=== PATIENT | male | born 1960 | race Two or more races ===

== ENCOUNTER 2023-06-16 09:19 | Outpatient (OUT) | payer OTHER, SELFPAY ==
[2023-06-16 10:04] LABS: Basophils Percent Auto 0.5 % (0.2-2.0); Eosinophils Absolute Auto 0.3 10^3/uL (0.0-0.7); Eosinophils Percent Auto 4.3 % (0.9-7.0); Hematocrit 47.5 % (42.0-54.0); Hemoglobin 15.8 g/dL (14.0-18.0); Immature Granulocytes Abs Auto 0.05 10^3/uL (0.00-0.03); Immature Granulocytes Pct Auto 0.6 % (0.0-0.5); Lymphocytes Absolute Auto 1.4 10^3/uL (1.2-3.8); Lymphocytes Percent Auto 17.3 % (20.5-60.0); Mean Corpuscular HGB Conc 33.3 g/dL (29.9-35.2); Mean Corpuscular Hemoglobin 26.8 pg (25.9-34.0); Mean Corpuscular Volume 80.5 fL (80.0-94.0); Mean Platelet Volume 9.3 fL (9.5-13.5); Monocytes Absolute Auto 0.8 10^3/uL (0.3-0.8); Monocytes Percent Auto 10.5 % (1.7-12.0); Neutrophils Absolute Auto 5.3 10^3/uL (1.4-6.5); Neutrophils Percent Auto 66.8 % (43.0-75.0); Platelet Count 287 10^3/uL (150-450); Red Cell Distribution Width 15.1 % (11.0-15.0); White Blood Count 7.9 10^3/uL (4.0-11.0)
== END 2023-06-16 09:20 | disposition home or self-care (01) ==
PROVIDERS: Visit Provider Personal Emergency Response Attendant
DX: Z01.818 Encounter for other preprocedural examination (principal)
CPT/HCPCS: 36415; 85025

== ENCOUNTER 2023-11-30 08:44 | Outpatient (OUT) | payer OTHER, SELFPAY ==
--- NOTE | 2023-11-30 08:55 | XR_ITS ---
The [place] [id number] Patient Name: JUAN WHITE MRN: [id number] date: 1960 Sex: M Assigned Patient Location: RAD Current Patient Location: RAD Accession/Order Number: [id number] Exam Date: 11/30/2023 09:10 Report Date: 11/30/2023 09:27 At the request of: SANDHYA ZAMBRANO Procedure: XR toe LT min 2V PROCEDURE: XR toe LT min 2V COMPARISON: None. HISTORY: Great Toe Pain Left M79.723 FINDINGS: BONES:No acute fracture or dislocation. Moderate to severe degenerative change of the first metatarsal-phalangeal joint with joint space narrowing marginal osteophyte formation SOFT TISSUES:Negative. No visible soft tissue swelling. EFFUSION:None visible. OTHER: Negative. 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
== END 2023-11-30 08:45 | disposition home or self-care (01) ==
LOC: RAD 08:47
PROVIDERS: Visit Provider Nurse Practitioner
DX: M79.675 Pain in left toe(s) (principal); M19.072 Primary osteoarthritis, left ankle and foot
CPT/HCPCS: 73660

== ENCOUNTER 2024-03-08 14:05 | Outpatient (OUT) | payer OTHER, SELFPAY ==
--- NOTE | 2024-03-08 14:16 | XR_ITS ---
The [address] [address] Patient Name: JUAN WHITE MRN: [id number] date: 1960 Sex: M Assigned Patient Location: [facility] Current Patient Location: [facility] Accession/Order Number: [id number] Exam Date: 03/08/2024 14:20 Report Date: 03/08/2024 14:32 At the request of: CAROL ABDALLA Procedure: XR toe RT min 2V PROCEDURE: XR toe RT min 2V COMPARISON: None. HISTORY: Right Great Toe Contusion FINDINGS: BONES:No acute fracture or dislocation. Moderate joint space narrowing First metatarsal-phalangeal joint SOFT TISSUES:Negative. No visible soft tissue swelling. EFFUSION:None visible. OTHER: Negative. XR/XR toe RT min 2V IMPRESSION: No acute fracture Electronically authenticated by: DANNY ZAMBRANO Date: 03/08/2024 14:32
--- OUTSIDE RECORDS SUMMARY | 2024-03-08 14:19 | XMS_ITS | CCD ---
Author Organization [employer] Care Team Providers Care Trial Judge Name Role Phone REQUEST, NONE LISTED Admitting Unavailable REQUEST, NONE LISTED Attending Unavailable REQUEST, NONE LISTED Consulting Unavailable DEL DUNCAN Attending Unavailable DEL DUNCAN Admitting Unavailable LIANNE, CAROL Primary Care Unavailable LIANNE, CAROL Admitting Unavailable LIANNE, CAROL Attending Unavailable LIANNE, CAROL Consulting Unavailable CHRIS EUBANKS Consulting Unavailable REQUEST, NONE LISTED Primary Care Unavailable KYRA BERMUDEZ JR Admitting Unavailable KYRA BERMUDEZ JR Attending Unavailable KYRA BERMUDEZ JR Consulting Unavailable ROSA SOLIS Attending Unavailable ROSA SOLIS Admitting Unavailable ROSA SOLIS Consulting Unavailable LIANNE, CAROL Admitting Unavailable LIANNE, CAROL Attending Unavailable LIANEN, CAROL Consulting Unavailable Milton Posada Consulting Unavailable DO Juventino Thompson Emergency Provider [facility] Primary Care Provider [phone] DO Ronen Gonzales Admit Provider DO Ronen Gonzales Attending Provider DO Hector Ansari Other Provider DO Jesse Sampson Emergency Provider [phone] MD Nydia Marcelino Admit Provider [phone] MD Nydia Marcelino Attending Provider GINNY HUTCHISON Primary Care Physician [phone] [facility] Primary Care Provider MD Juventino Lee Attending Provider Juventino LEE Attending Unavailable Juventino LEE Attending Unavailable Juventino LEE Attending Unavailable Juventino LEE Attending Unavailable Juventino LEE Admitting Unavailable Juventino LEE Referring Unavailable LEE, Juventino Sims Attending Unavailable LEE, uJventino Sims Attending Unavailable Paulie De La O Unavailable [facility] Primary Care Provider DO Juventino Thompson Emergency Provider [facility] Primary Care Unavailable Juventino Lee Admitting Unavailable Juventino Lee Attending Unavailable [facility], [facility] Primary Care Unavailable Juventino joe Admitting Unavailable Juventino Thompson Attending Unavailable [facility], [facility] Primary Care Unavailable Lee, Juventino Admitting Unavailable Lee, Juventino Attending Unavailable Medications Current Medications Medication Drug Class(es) Dates Sig (Normalized) Sig (Original) amLODIPine 5 mg oral tablet (3 sources) Dihydropyridine Calcium Channel Shamir Start: 07-05-2023 take 5 mg by mouth once daily Amlodipine Active 5 MG PO Daily at 0630 July 05, 2023 12:00am take 1 tablet by [facility] every twenty-four hours Norvasc 5 MG 1 tablet Orally Once a day Active atorvastatin 40 mg oral tablet (20 sources) HMG-CoA Reductase Inhibitor Start: 05-17-2022 End: 09-13-2022 take 1 dose by mouth once daily in the morning Atorvastatin Active 40 MG PO Every morning September 13, 2022 9:51am Further refills, or dose adjustment, per PCP. Start: 05-16-2022 End: 05-17-2022 take 20 mg by mouth once daily Atorvastatin Discontinu ed 20 MG PO Daily May 16, 2022 12:00am May 17, 2022 4:44pm on hold for 2 days d/t CT dye cephalexin 500 mg oral capsule (1 source) Cephalosporin Antibacterial Start: 07-05-2023 take 500 mg by mouth four times daily Cephalexin Active 500 MG PO Four times daily 40 10 July 05, 2023 12:00am cholecalciferol 0.125 mg oral tablet (9 sources) Vitamin D Start: 05-16-2022 take 1 tablet by mouth once daily Cholecalciferol (Vitamin D3) (Vitamin D3) 125 mcg (5,000 unit) Tablet Active 125 MCG PO Daily May 16, 2022 12:00am take 1 capsule by [facility] every twenty-four hours Vitamin D3 125 MCG (5000 UT) 1 capsule Orally Once a day Active ciprofloxacin 500 mg oral tablet (3 sources) Quinolone Antimicrobial Start: 08-16-2022 take 1 tablet by mouth twice daily Cipro 500 mg Tab 500 mg = 1 tab(s), Oral, BID, # 28 tab(s), Refills(s) 0, Pharmacy: [facility]/pharmacy #[id number], 166, cm, 08/01/22 8:09:00 EDT, Height/Length Dosing, 109.4, kg, 07/13/22 9:53:00 EDT, Weight Dosing Start Date: 08/16/22 Status: Ordered clopidogrel 75 mg oral tablet (5 sources) [id number] Platelet Inhibitor Start: 06-06-2022 take 75 mg by mouth once daily in the morning Clopidogrel Active 75 MG PO Every morning September 13, 2022 1:00am doxycycline hyclate 100 mg oral capsule (4 sources) Tetracycline-clas s Drug Start: 07-13-2022 take 1 capsule by mouth twice daily doxycycline hyclate 100 mg Cap 100 mg = 1 cap(s), Oral, BID, # 60 cap(s), Refills(s) 1, Pharmacy: [facility]/pharmacy #[id number], 166, cm, 07/13/22 9:53:00 EDT, Height/Length Dosing, 109.4, kg, 07/13/22 9:53:00 EDT, Weight Dosing Start Date: 07/13/22 Status: Ordered hydroCHLOROthiazide 12.5 mg oral capsule (5 sources) Thiazide Diuretic Start: 07-28-2020 take 1 capsule by mouth once daily hydrochlorothiazide 12.5 mg Cap 12.5 mg = 1 cap(s), Oral, Daily, Refills(s) 0 Start Date: 07/28/20 Status: Ordered hydroCHLOROthiazide 12.5 mg / lisinopril 20 mg oral tablet (9 sources) Thiazide Diuretic, Angiotensin Converting Enzyme Inhibitor Start: 05-16-2022 take 1 tablet by mouth once daily in the morning Lisinopril-Hydrochloro thiazide Active 1 TAB PO Every morning May 16, 2022 12:00am lisinopril 20 mg oral tablet (5 sources) Angiotensin Converting Enzyme Inhibitor Start: 07-28-2020 take 1 tablet by mouth once daily lisinopril 20 mg Tab 20 mg = 1 tab(s), Oral, Daily, Refills(s) 0 Start Date: 07/28/20 Status: Ordered losartan potassium 100 mg oral tablet (7 sources) Angiotensin 2 Receptor Shamir Start: 07-05-2023 take 100 mg by mouth once daily Losartan Active 100 MG PO Daily July 05, 2023 12:00am Start: 07-13-2022 losartan 25 mg Tab 25 mg = 1 tab(s), Daily Start Date: 07/13/22 Status: Ordered take 1 tablet by tomi th every twenty-four hours Losartan Potassium 100 MG 1 tablet Orally Once a day Active metFORMIN hydrochloride 1000 mg oral tablet (14 sources) Biguanide Start: 05-16-2022 take 1000 mg by mouth twice daily Metformin Active 1000 MG PO Twice daily May 16, 2022 12:00am Start: 07-28-2020 take 1 tablet by tomi th twice daily metformin 500 mg Tab 500 mg = 1 tab(s), Oral, BID, Refills(s) 0 Start Date: 07/28/20 Status: Ordered Pain Relief Extra Strength (5 sources) Start: 07-28-2020 take 500 mg by mouth every six hours Pain Relief Extra Strength 500 mg, Oral, q6hr, Refills(s) 0 Start Date: 07/28/20 Status: Ordered Saw palmetto extract (5 sources) Start: 07-29-2020 take 1 mg by mouth once daily saw palmetto mg, Oral, Daily Start Date: 07/29/20 Status: Ordered SITagliptin 100 mg oral tablet (13 sources) Dipeptidyl Peptidase 4 Inhibitor Start: 05-16-2022 take 1 tablet by mouth once daily in the morning Sitagliptin Phosphate (Januvia) 100 mg Tablet Active 100 MG PO Every morning May 16, 2022 12:00am tamsulosin hydrochloride 0.4 mg oral capsule (8 sources) alpha-Adrenergic Shamir Start: 07-13-2022 take 1 capsule by mouth twice daily tamsulosin 0.4 mg Cap 0.4 mg = 1 cap(s), Oral, BID, # 30 cap(s), Refills(s) 11, Pharmacy: [facility]/pharmacy #[id number], 166, cm, 07/13/22 9:53:00 EDT, Height/Length Dosing, 109.4, kg, 07/13/22 9:53:00 EDT, Weight Dosing Start Date: 07/13/22 Status: Ordered Start: 05-21-2022 End: 09-13-2022 take 1 capsule by mouth once daily at bedtime Tamsulosin (Flomax) 0.4 mg capsule Discontinued 0.4 MG PO Daily at bedtime May 21, 2022 12:00am September 13, 2022 9:48am Vitamin D3 5000 intl units o ral tablet (4 sources) Start: 07-13-2022 Vitamin D3 500 0 intl units oral tablet 125 mcg = 1 tab(s) Start Date: 07/13/22 Status: Ordered Completed/Discontinued Medications Medication Drug Class(es) Dates Sig (Normalized) Sig (Original) amoxicillin 875 mg oral tablet (5 sources) Penicillin-class Antibacterial Start: 05-18-2022 End: 05-19-2022 take 875 mg by mouth twice daily Amoxicillin Discontinued 875 MG PO Twice daily 10 May 18, 2022 12:00am May 19, 2022 1:01pm aspirin 81 mg delayed release oral tablet (6 sources) Platelet Aggregation Inhibitor, Nonsteroidal Anti-inflammatory Drug Start: 05-17-2022 End: 09-13-2022 take 81 mg by mouth once daily Aspirin Discontinued 81 MG PO Daily May 17, 2022 12:00am September 13, 2022 9:47am cetirizine hydrochloride 10 mg oral tablet (10 sources) Histamine-1 Receptor Antagonist Start: 05-19-2022 End: 09-13-2022 take 10 mg by mouth once daily Cetirizine Discontinued 10 MG PO Daily May 19, 2022 12:00am September 13, 2022 9:47am Start: 07-28-2020 take 1 capsule by [facility] once daily as needed cetirizine 10 mg oral capsule 10 mg = 1 cap(s), Oral, Daily, PRN for allergy symptoms, # 40 cap(s), Refills(s) 0 Start Date: 07/28/20 Status: Ordered zolpidem tartrate 10 mg oral tablet (4 sources) gamma-Aminobutyric Acid-ergic Agonist Start: 05-21-2022 End: 09-27-2022 take 5 mg by mouth once daily at bedtime Zolpidem Discontinued 5 MG PO Daily at bedtime 03 10May 21, 2022 12:00am September 27, 2022 9:39am Problems Active Problems Problem Classification Problem Date Documented Date Episodic/Chronic Acute and unspecified renal failure (7 sources) Injury of kidney; Translations: [Acute kidney failure, unspecified] 05-19-2022 Episodic Acute cerebrovascular disease (20 sources) Other cerebral infarction due to occlusion or stenosis of small artery; Translations: [Cerebrovascular accident (CVA) of right thalamus] 05-17-2022 Chronic Diabetes mellitus without complication (15 sources) Diabetes mellitus; Translations: [Type 2 diabetes mellitus without complications] 05-16-2022 Chronic Diabetes mellitus without complication (5 sources) Glycosuria 07-29-2020 Episodic Disorders of lipid metabolism (15 sources) Hyperlipidemia; Translations: [Hyperlipidemia, unspecified] 05-16-2022 Chronic Essential hypertension (15 sources) Hypertensive disorder; Translations: [Essential (primary) hypertension] 05-16-2022 Chronic Genitourinary symptoms and ill-defined conditions (19 sources) Foul smelling urine; Translations: [History of recurrent urinary tract infection] Onset: 07-13-2022 08-14-2020 Episodic Hyperplasia of prostate (7 sources) Benign prostatic hyperplasia with lower urinary tract symptoms; Translations: [Benign prostatic hypertrophy with outflow obstruction] Onset: 08-12-2020 Chronic Inflammatory conditions of male genital organs (3 sources) Prostatitis; Translations: [Inflammatory disease of prostate, unspecified] Onset: 07-13-2022 Episodic Malaise and fatigue (10 sources) Left hemiparesis; Translations: [Weakness] 05-16-2022 Episodic Occlusion or stenosis of precerebral arteries (9 sources) Carotid artery stenosis; Translations: [Occlusion and stenosis of unspecified carotid artery] 05-16-2022 Chronic Osteoarthritis (3 sources) Osteoarthritis of knee; Translations: [Unilateral primary osteoarthritis, right knee] Chronic Other circulatory disease (4 sources) History of cerebrovascular accident 07-13-2022 Episodic Other connective tissue disease (5 sources) Neurological symptom; Translations: [Unspecified symptoms and signs involving the nervous system] 05-19-2022 Episodic Other connective tissue disease (2 sources) Unspecified symptoms and signs involving the nervous system; Translations: [Other symptoms involving nervous and musculoskeletal systems] Episodic Other diseases of bladder and urethra (2 sources) Disorder of bladder; Translations: [Other specified disorders of bladder] Onset: 07-13-2022 Chronic Other diseases of bladder and urethra (1 source) Hypertrophy of bladder 10-12-2022 Chronic Other diseases of kidney and ureters (2 sources) Urinary tract obstruction; Translations: [Other obstructive and reflux uropathy] Onset: 07-13-2022 Episodic Other nervous system disorders (2 sources) Chronic pain; Translations: [Other chronic pain] Chronic Other nervous system disorders (1 source) Other chronic pain Chronic Other nervous system disorders (6 sources) Disturbance in speech; Translations: [Unspecified speech disturbances] 05-16-2022 Episodic Other nervous system disorders (4 sources) Unspecified speech disturbances; Translations: [Other speech disturbance] Episodic Other non-traumatic joint disorders (3 sources) Pain in right knee; Translations: [Right knee pain] Episodic Other nutritional; endocrine; and metabolic disorders (6 sources) Body mass index 30+ - obesity; Translations: [Body mass index (BMI) 38.0-38.9, adult] 05-16-2022 Chronic Other nutritional; endocrine; and metabolic disorders (3 sources) Body mass index (BMI) 38.0-38.9, adult; Translations: [Body Mass Index 38.0-38.9, adult] Chronic Residual codes; unclassified (6 sources) Obstructive sleep apnea syndrome; Translations: [Obstructive sleep apnea (adult) (pediatric)] 05-17-2022 Chronic Residual codes; unclassified (1 source) Obstructive sleep apnea (adult) (pediatric); Translations: [Obstructive sleep apnea (adult)(pediatric)] Chronic Residual codes; unclassified (5 sources) Sleep apnea 07-28-2020 Chronic Residual codes; unclassified (4 sources) Insomnia; Translations: [Insomnia, unspecified] 05-21-2022 Episodic Spondylosis; intervertebral disc disorders; other back problems (6 sources) Spinal stenosis in cervical region; Translations: [Spinal stenosis, cervical region] 05-17-2022 Episodic Transient cerebral ischemia (11 sources) Cerebral ischemia; Translations: [Transient cerebral ischemic attack, unspecified] 05-16-2022 Chronic Unclassified (1 source) Fever, unspecified; Translations: [Fever, unspecified] Onset: 07-04-2023 Unclassified (1 source) Unspecified urethral stricture, male, unspecified site; Translations: [Unspecified urethral stricture, male, unspecified site] Onset: 09-27-2022 Unclassified (1 source) Encounter for preprocedural laboratory examination; Translations: [Encounter for preprocedural laboratory examination] Onset: 09-13-2022 Urinary tract infections (5 sources) Urinary tract infection, site not specified; Translations: [Acute urinary tract infection] Onset: 09-20-2020 07-05-2023 Episodic Past or Other Problems Problem Classification Problem Date Documented Da te Episodic/Chronic Sprains and strains (8 sources) Sprain of unspecified ligament of left ankle, initial encounter; Translations: [Strain of other muscle(s) and tendon(s) of posterior muscle group at lower leg level, left leg, initial encounter] Onset: 01-31-2020 Episodic Results Test Name Value Interpretation Reference Range Facility Blood Cultureon 07-05-2023 Bacteria identified Cx Nom (Bld) NO GROWTH 5 DAYS PERFORMED BY: [place] [id number] PATHOLOGIST FIELD STAFF MANAGER SALINA HASSAN M.D. [facility] Comment on above: Performed By: #### A DDONUAPLUS, CUU #### [address] Bacteria identified Cx Nom (Bld) NO GROWTH 5 DAYS PERFORMED BY: [place] [address] PATHOLOGIST FIELD STAFF MANAGER SALINA HASSAN M.D. [facility] Comment on above: Performed By: #### A DDONUAPLUS, CUU #### [place] [address] [place] Comprehensive Metabolic Pane brandi 07-05-2023 Albumin [Mass/Vol] 4.2 g/dL Normal 3.5-5.7 [facility] Comment on above: Performed By: #### C MP, SCAN CBC #### [place] [id number] [facility] Albumin/Globulin [Mass ratio] 1.6 {ratio} [facility] Comment on above: Performed By: #### C MP, SCAN CBC #### [place] [address] [place] ALP [Catalytic activity/Vol] 57 U/L Normal 34-104 [facility] Comment on above: Performed By: #### C MP, SCAN CBC #### [facility] [address] [place] [address] [place] ALT [Catalytic activity/Vol] 13 U/L Normal 7-52 [facility] Comment on above: Performed By: #### C MP, SCAN CBC #### [facility] [address] Anion gap [Moles/Vol] 3.8 mmol/L Low 6.0-15.0 [facility] Comment on above: Performed By: #### C MP, SCAN CBC #### [facility] [address] AST [Catalytic activity/Vol] 10 U/L Low 13-39 [facility] Comment on above: Performed By: #### C MP, SCAN CBC #### [facility] [address] Bilirubin [Mass/Vol] 1.2 mg/dL High 0.3-1.0 [facility] Comment on above: Performed By: #### C MP, SCAN CBC #### [facility] [address] [place] [address] [place] Calcium [Mass/Vol] 9.4 mg/dL Normal 8.6-10.3 [facility] Comment on above: Performed By: #### C MP, SCAN CBC #### [facility] [address] [place] [address] [place] Chloride [Moles/Vol] 108 mmol/L High 98-107 [facility] Comment on above: Performed By: #### C MP, SCAN CBC #### [facility] [address] [place] [address] [place] CO2 [Moles/Vol] 22.0 mmol/L Normal 21.0-31.0 [facility] Comment on above: Performed By: #### C MP, SCAN CBC #### [facility] [address] [place] [id number] [place] Creatinine [Mass/Vol] 1.05 mg/dL Normal 0.70-1.30 [facility] Comment on above: Performed By: #### C MP, SCAN CBC #### [facility] [address] [place] [address] [place] Creatinine Clr Calc Pharmacy 81.49 Normal [facility] Comment on above: Result Comment: PERF ORMED BY: [place] [address] PATHOLOGIST FIELD STAFF MANAGER SALINA HASSAN M.D. Performed By: #### C MP, SCAN CBC #### [facility] [address] [place] [address] [place] GFR/1.73 sq M.predicted MDRD (S/P/Bld) [Vol rate/Area] mL/min/{1.73_m2} Normal [facility] Comment on above: Performed By: #### C MP, SCAN CBC #### [facility] [address] Globulin (S) [Mass/Vol] 2.7 g/dL Normal [facility] Comment on above: Performed By: #### C MP, SCAN CBC #### [facility] [address] Glucose [Mass/Vol] 112 mg/dL High 70-100 [facility] Comment on above: Result Comment: [place] Glucose Reference Range is dependent on time and content of last meal. Glucose of more than 200 mg/dL in a nonstressed, ambulatory subject supports the diagnosis of Diabetes Mellitus. ADA recommended reference range Performed By: #### C MP, SCAN CBC #### [facility] [address] [place] [address] [place] Potassium [Moles/Vol] 3.8 mmol/L Normal 3.5-5.1 [facility] Comment on above: Performed By: #### C MP, SCAN CBC #### [facility] [address] [place] [address] [place] Protein [Mass/Vol] 6.9 g/dL Normal 6.4-8.9 [facility] Comment on above: Performed By: #### C MP, SCAN CBC #### [facility] [address] [place] [address] [place] Sodium [Moles/Vol] 130 mmol/L Low 136-145 [facility] Comment on above: Performed By: #### C MP, SCAN CBC #### [address] Urea nitrogen [Mass/Vol] 26 mg/dL High 7-25 [facility] Comment on above: Performed By: #### C MP, SCAN CBC #### [facility] [address] [place] [address] Lactic Acidon 07-05-2023 Lactate [Moles/Vol] 1.0 mmol/L Normal 0.5-2.2 [facility] Comment on above: Result Comment: PERF ORMED BY: [place] [address] PATHOLOGIST FIELD STAFF MANAGER SALINA HASSAN M.D. Performed By: #### L ACTIC #### [facility] [address] [place] [address] Scan and CBCon 07-05-2023 Anisocytosis Ql (Bld) Moderate Normal [facility] Comment on above: Performed By: #### C MP, SCAN CBC #### [facility] [address] [place] [address] [place] Basophils (Bld) [#/Vol] 0.1 10*3/uL Normal 0.0-0.2 [facility] Comment on above: Performed By: #### C MP, SCAN CBC #### [facility] [address] [place] [address] [place] Basophils/100 WBC (Bld) 0.7 % Normal . F [facility] Comment on above: Performed By: #### C MP, SCAN CBC #### [facility] [address] [place] [address] [place] Eosinophils (Bld) [#/Vol] 0.1 10*3/uL Normal 0.0-0.45 [facility] Comment on above: Performed By: #### C MP, SCAN CBC #### [facility] [address] [place] [address] [place] Eosinophils/100 WBC (Bld) 0.6 % Normal . [facility] Comment on above: Performed By: #### C MP, SCAN CBC #### [facility] [address] Erythrocyte distribution width (RBC) [Ratio] 14.4 % Normal 12.0-14.8 [facility] Comment on above: Performed By: #### C MP, SCAN CBC #### [facility] [address] Hematocrit (Bld) [Volume fraction] 46.7 % Normal 38.8-50.0 [facility] Comment on above: Performed By: #### C MP, SCAN CBC #### [address] Hemoglobin (Bld) [Mass/Vol] 15.3 g/dL Normal 13.0-17.0 [facility] Comment on above: Performed By: #### C MP, SCAN CBC #### [address] Lymphocytes (Bld) [#/Vol] 1.6 10*3/uL Normal 1.00-4.8 [facility] Comment on above: Performed By: #### C MP, SCAN CBC #### [address] Lymphocytes/100 WBC (Bld) 8.3 % Normal . [facility] Comment on above: Performed By: #### C MP, SCAN CBC #### [facility] [address] [place] [address] [place] MCH (RBC) [Entitic mass] 26.4 pg Low 27.5-35.2 [facility] Comment on above: Performed By: #### C MP, SCAN CBC #### [facility] [address] MCV (RBC) [Entitic vol] 80.4 fL Low 83.5-101 F [facility] Comment on above: Performed By: #### C MP, SCAN CBC #### [address] Mean Corpuscular HGB Conc 32.9 g/dL Normal 32.5-35.6 [facility] Comment on above: Performed By: #### C MP, SCAN CBC #### [facility] [address] Microcytosis Moderate Normal [facility] Comment on above: Performed By: #### C MP, SCAN CBC #### [facility] [address] [place] [address] [place] Monocytes (Bld) [#/Vol] 2.1 10*3/uL High 0.0-0.8 [facility] Comment on above: Performed By: #### C MP, SCAN CBC #### [facility] [address] [place] [address] [place] Monocytes/100 WBC (Bld) 18.99 % Normal 0.00-20.00 [facility] Comment on above: Performed By: #### C MP, SCAN CBC #### [facility] [address] [place] [address] [place] Monocytes/100 WBC (Bld) 10.7 % Normal . F [facility] Comment on above: Performed By: #### C MP, SCAN CBC #### [place] [address] [place] Neutrophils (Bld) [#/Vol] 15.4 10*3/uL High 1.8-7.7 [facility] Comment on above: Performed By: #### C MP, SCAN CBC #### [facility] [address] [place] [address] [place] Neutrophils/100 WBC (Bld) 79.7 % Normal . [facility] Comment on above: Performed By: #### C MP, SCAN CBC #### [facility] [address] [place] [address] [place] NRBC% 0.1 /100{WBC} Normal 0-0.5 [facility] Comment on above: Performed By: #### C MP, SCAN CBC #### [facility] [address] [place] [address] [place] Platelet Estimate Normal Normal Normal [facility] Comment on above: Performed By: #### C MP, SCAN CBC #### [facility] [address] Platelet mean volume (Bld) [Entitic vol] 7.3 fL Normal 6.6-10.1 [facility] Comment on above: Performed By: #### C MP, SCAN CBC #### [address] Platelet Morphology Normal Normal Normal [facility] Comment on above: Result Comment: PERF ORMED BY: [place] [address] PATHOLOGIST FIELD STAFF MANAGER SALINA HASSAN M.D. Performed By: #### C MP, SCAN CBC #### [facility] [address] [place] [address] Platelets (Bld) [#/Vol] 246 10*3/uL Normal 150-450 [facility] Comment on above: Performed By: #### C MP, SCAN CBC #### [facility] [address] [place] [address] RBC (Bld) [#/Vol] 5.80 10*6/uL High 3.90-5.60 [facility] Comment on above: Performed By: #### C MP, SCAN CBC #### [address] WBC (Bld) [#/Vol] 19.3 10*3/uL High 4.1-10.5 [facility] Comment on above: Performed By: #### C MP, SCAN CBC #### [address] Alanine aminotransferase [En zymatic activity/volume] in Serum or PlasmaOrdered By: Juventino Thompson on 07-04-2023 ALT [Catalytic activity/Vol] 13 U/L 7-52 [facility] Albumin [Mass/volume] in Ser um or Plasma by Bromocresol green (BCG) dye binding methoOrdered By: Juventino Thompson on 07-04-2023 Albumin BCG dye [Mass/Vol] 4.2 g/dL 3.5-5.7 [facility] Alkaline phosphatase [Enzyma tic activity/volume] in Serum or PlasmaOrdered By: Juventino Thompson on 07-04-2023 ALP [Catalytic activity/Vol] 57 U/L 34-104 [facility] Anisocytosis LM Ql (Bld)Orde red By: Juventino Thompson on 07-04-2023 Anisocytosis Ql (Bld) Moderate F[facility] Aspartate aminotransferase [ Enzymatic activity/volume] in Serum or PlasmaOrdered By: Juventino Thompson on 07-04-2023 AST [Catalytic activity/Vol] 10 U/L 13-39 [facility] Automated erythrocytes count in urine sediment (number/area)Ordered By: PROVIDER TEMP on 07-04-2023 RBC Auto (Urine sed) [#/Area] 20-49 [HPF] 0-4 [facility] Automated leukocytes count i n urine sediment (number/area)Ordered By: PROVIDER TEMP on 07-04-2023 WBC Auto (Urine sed) [#/Area] Innumerable [HPF] 0-4 [facility] Basophils Auto (Bld) [#/Vol] Ordered By: Juventino Thompson on 07-04-2023 Basophils (Bld) [#/Vol] 0.1 10*3/uL 0.0-0.2 [facility] Basophils/100 WBC Auto (Bld) Ordered By: Juventino Thompson on 07-04-2023 Basophils/100 WBC (Bld) 0.7 % . [facility] Bilirubin Test strip Ql (U)O rdered By: PROVIDER TEMP on 07-04-2023 Bilirubin Ql (U) Negative Negative [facility] Bilirubin.total [Mass/volume ] in Serum or PlasmaOrdered By: Juventino Thompson on 07-04-2023 Bilirubin [Mass/Vol] 1.2 mg/dL 0.3-1.0 [facility] Calcium [Mass/volume] in Ser um or PlasmaOrdered By: Juventino Thompson on 07-04-2023 Calcium [Mass/Vol] 9.4 mg/dL 8.6-10.3 [facility] Carbon dioxide, total [Moles /volume] in Serum or PlasmaOrdered By: Juventino Thompson on 07-04-2023 CO2 [Moles/Vol] 22.0 mmol/L 21.0-31.0 [facility] Chloride [Moles/volume] in S zandra or PlasmaOrdered By: Juventino Thompson on 07-04-2023 Chloride [Moles/Vol] 108 mmol/L 98-107 [facility] Color Auto (U)Ordered By: LINCOLN NINO on 07-04-2023 Color (U) Yellow Yellow [facility] Creatinine [Mass/volume] in Serum or PlasmaOrdered By: Juventino Thompson on 07-04-2023 Creatinine [Mass/Vol] 1.05 mg/dL 0.70-1.30 [facility] Dipstick and Microscopicon 0 07-04-2023 Appearance (U) Turbid Critically abnormal Clear [facility] Comment on above: Order Comment: Name Collection Type:: Clean-Voided Midstream Performed By: #### A DDONUAPLUS, CUU #### [facility] [address] [place] [address] [place] Bacteria,Urine 4+ High None Seen [facility] Comment on above: Order Comment: Name Collection Type:: Clean-Voided Midstream Performed By: #### A DDONUAPLUS, CUU #### [facility] [address] [place] [address] [place] Bilirubin,Urine Negative Normal Negative [facility] Comment on above: Order Comment: Name Collection Type:: Clean-Voided Midstream Performed By: #### A DDONUAPLUS, CUU #### [facility] [address] [place] [id number] [place] Color (U) Yellow Normal Yellow [facility] Comment on above: Order Comment: Name Collection Type:: Clean-Voided Midstream Performed By: #### A DDONUAPLUS, CUU #### [facility] [address] [place] [id number] [place] Glucose Ql (U) Normal Normal Normal [facility] Comment on above: Order Comment: Name Collection Type:: Clean-Voided Midstream Performed By: #### A DDONUAPLUS, CUU #### [facility] [address] [place] [id number] [place] Hyaline Casts,Urine None Seen Normal 0-8 [facility] Comment on above: Order Comment: Name Collection Type:: Clean-Voided Midstream Result Comment: PERF ORMED BY: [place] [address] PATHOLOGIST FIELD STAFF MANAGER SALINA HASSAN M.D. Performed By: #### A DDONUAPLUS, CUU #### [address] Ketones Ql (U) Negative Normal Negative [facility] Comment on above: Order Comment: Name Collection Type:: Clean-Voided Midstream Performed By: #### A DDONUAPLUS, CUU #### [address] Leukocyte esterase Test strip Ql (U) 4+ High Negative [facility] Comment on above: Order Comment: Name Collection Type:: Clean-Voided Midstream Performed By: #### A DDONUAPLUS, CUU #### [place] [address] [place] Nitrite,Urine Negative Normal Negative [facility] Comment on above: Order Comment: Name Collection Type:: Clean-Voided Midstream Performed By: #### A DDONUAPLUS, CUU #### [place] [address] [place] Occult Blood,Urine 3+ High Negative [facility] Comment on above: Order Comment: Name Collection Type:: Clean-Voided Midstream Result Comment: PERF ORMED BY: [place] [address] PATHOLOGIST FIELD STAFF MANAGER SALINA HASSAN M.D. Performed By: #### A DDONUAPLUS, CUU #### [place] [address] [place] pH (U) 6.0 [pH] Normal 5.0-9.0 [facility] Comment on above: Order Comment: Name Collection Type:: Clean-Voided Midstream Performed By: #### A DDONUAPLUS, CUU #### [place] [address] [place] Protein (U) [Mass/Vol] 100 mg/dL High Negative [facility] Comment on above: Order Comment: Name Collection Type:: Clean-Voided Midstream Performed By: #### A DDONUAPLUS, CUU #### [address] RBC,Urine 20-49 High 0-4 [facility] Comment on above: Order Comment: Name Collection Type:: Clean-Voided Midstream Performed By: #### A DDONUAPLUS, CUU #### [address] Specificy [place],Urine 1.017 Normal 1.00 1-1.03 0 [facility] Comment on above: Order Comment: Name Collection Type:: Clean-Voided Midstream Performed By: #### A DDONUAPLUS, CUU #### [address] Squamous Epithelial Cell,Urine 0-1 Normal 0-2 [facility] Comment on above: Order Comment: Name Collection Type:: Clean-Voided Midstream Performed By: #### A DDONUAPLUS, CUU #### [address] Urobilinogen,Urine Normal Normal Normal [facility] Comment on above: Order Comment: Name Collection Type:: Clean-Voided Midstream Performed By: #### A DDONUAPLUS, CUU #### [address] WBC,Urine Innumerable High 0-4 [facility] Comment on above: Order Comment: Name Collection Type:: Clean-Voided Midstream Performed By: #### A DDONUAPLUS, CUU #### [place] [address] [place] Eosinophils Auto (Bld) [#/Vo l]Ordered By: Juventino Thompson on 07-04-2023 Eosinophils (Bld) [#/Vol] 0.1 10*3/uL 0.0-0.45 [facility] Eosinophils/100 WBC Auto (Bl d)Ordered By: Juventino Thompson on 07-04-2023 Eosinophils/100 WBC (Bld) 0.6 % . [facility] Erythrocyte distribution wid th Auto (RBC) [Ratio]Ordered By: Juventino Thompson on 07-04-2023 Erythrocyte distribution width (RBC) [Ratio] 14.4 % 12.0-14.8 [facility] Globulin Calc (S) [Mass/Vol] Ordered By: Juventino Thompson on 07-04-2023 Globulin (S) [Mass/Vol] 2.7 g/dL [facility] Glucose [Mass/volume] in Ser um or PlasmaOrdered By: Juventino Thompson on 07-04-2023 Glucose [Mass/Vol] 112 mg/dL 70-100 [facility] Comment on above: ADA recommended refe rence rangeRandom Glucose Reference Range is dependent on time and content of last meal. Glucose of more than 200 mg/dL in a nonstressed, ambulatory subject supports the diagnosis of Diabetes Mellitus. Hematocrit Auto (Bld) [Volum e fraction]Ordered By: Juventino Thompson on 07-04-2023 Hematocrit (Bld) [Volume fraction] 46.7 % 38.8-50.0 [facility] Hemoglobin [Mass/volume] in BloodOrdered By: Juventino Thompson on 07-04-2023 Hemoglobin (Bld) [Mass/Vol] 15.3 g/dL 13.0-17.0 [facility] Ketones Auto test strip (U) [Mass/Vol]Ordered By: PROVIDER TEMP on 07-04-2023 Ketones (U) [Mass/Vol] Negative Negative [facility] - UrinalysisOrder ed By: PROVIDER TEMP on 07-04-2023 Hyaline casts LM Ql (Urine sed) None seen [LPF] 0-8 [facility] Lactate [Moles/volume] in Se rum or PlasmaOrdered By: Juventino Thompson on 07-04-2023 Lactate [Moles/Vol] 1.0 mmol/L 0.5-2.2 [facility] Leukocytes [#/volume] correc tank for nucleated erythrocytes in Blood by Automated counOrdered By: Juventino Thompson on 07-04-2023 WBC corrected for nucl RBC Auto (Bld) [#/Vol] 19.3 10*3/uL 4.1-10.5 [facility] Lymphocytes Auto (Bld) [#/Vo l]Ordered By: Juventino Thompson on 07-04-2023 Lymphocytes (Bld) [#/Vol] 1.6 10*3/uL 1.00-4.8 [facility] Lymphocytes/100 WBC Auto (Bl d)Ordered By: Juventino Thompson on 07-04-2023 Lymphocytes/100 WBC (Bld) 8.3 % . [facility] MCH Auto (RBC) [Entitic mass ]Ordered By: Juventino Thompson on 07-04-2023 MCH (RBC) [Entitic mass] 26.4 pg 27.5-35.2 [facility] MCHC Auto (RBC) [Mass/Vol]Or dered By: Juventino Thompson on 07-04-2023 MCHC (RBC) [Mass/Vol] 32.9 g/dL 32.5-35.6 Fir [facility] MCV Auto (RBC) [Entitic vol] Ordered By: Juventino Thompson on 07-04-2023 MCV (RBC) [Entitic vol] 80.4 fL 83.5-101 F [facility] Microcytes LM Ql (Bld)Ordere d By: Juventino Thompson on 07-04-2023 Microcytes Ql (Bld) Moderate [facility] Monocyte distribution width [Entitic volume] in Blood by AutomatedOrdered By: Juventino Thompson on 07-04-2023 Monocyte distribution width Auto (Bld) [Entitic vol] 18.99 % 0.00-20.00 [facility] Monocytes Auto (Bld) [#/Vol] Ordered By: Juventino Thompson on 07-04-2023 Monocytes (Bld) [#/Vol] 2.1 10*3/uL 0.0-0.8 [facility] Monocytes/100 WBC Auto (Bld) Ordered By: Juventino Thompson on 07-04-2023 Monocytes/100 WBC (Bld) 10.7 % . [facility] Neutrophils Auto (Bld) [#/Vo l]Ordered By: Juventino Thompson on 07-04-2023 Neutrophils (Bld) [#/Vol] 15.4 10*3/uL 1.8-7.7 [facility] Neutrophils/100 WBC Auto (Bl d)Ordered By: Juventino Thompson on 07-04-2023 Neutrophils/100 WBC (Bld) 79.7 % . [facility] Nitrite Test strip Ql (U)Ord ered By: PROVIDER TEMP on 07-04-2023 Nitrite Ql (U) Negative Negative [facility] No Panel InformationOrdered By: Juventino Thompson on 07-04-2023 Estimated GFR (CKD-EPI) > 60.0 mL/Min [facility] Creatinine Clearance (Chem 81.49 [facility] Nucleated erythrocytes [Pres ence] in Blood by Automated countOrdered By: Juventino Thompson on 07-04-2023 Nucleated RBC Auto Ql (Bld) 0.1 /100{WBC} 0-0.5 [facility] Platelet adequacy [Presence] in Blood by Light microscopyOrdered By: Juventino Thompson on 07-04-2023 Platelets LM Ql (Bld) Normal Normal [facility] Platelet mean volume Auto (B ld) [Entitic vol]Ordered By: Juventino Thompson on 07-04-2023 Platelet mean volume (Bld) [Entitic vol] 7.3 fL 6.6-10.1 [facility] Platelet morphology finding [Identifier] in BloodOrdered By: Juventino Thompson on 07-04-2023 Platelet morphology finding Nom (Bld) Normal Normal [facility] Platelets Auto (Bld) [#/Vol] Ordered By: Juventino Thompson on 07-04-2023 Platelets (Bld) [#/Vol] 246 10*3/uL 150-450 [facility] Potassium [Moles/volume] in Serum or PlasmaOrdered By: Juventino Thompson on 07-04-2023 Potassium [Moles/Vol] 3.8 mmol/L 3.5-5.1 [facility] Protein Auto test strip (U) [Mass/Vol]Ordered By: PROVIDER TEMP on 07-04-2023 Protein (U) [Mass/Vol] 100 mg/dL Negative Fi [facility] Protein [Mass/volume] in Ser um or PlasmaOrdered By: Juventino Thompson on 07-04-2023 Protein [Mass/Vol] 6.9 g/dL 6.4-8.9 [facility] RBC Auto (Bld) [#/Vol]Ordere d By: Juventino Thompson on 07-04-2023 RBC (Bld) [#/Vol] 5.80 10*6/uL 3.90-5.60 [facility] RBC morphologyOrdered By: Jose Thompson on 07-04-2023 RBC morphology finding Nom (Bld) N/A [facility] Serum or plasma albumin/glob ulin mass ratioOrdered By: Juventino Thompson on 07-04-2023 Albumin/Globulin [Mass ratio] 1.6 {ratio} [facility] Serum or plasma anion gap de terminationOrdered By: Juventino Thompson on 07-04-2023 Anion gap [Moles/Vol] 3.8 mmol/L 6.0-15.0 [facility] Sodium [Moles/volume] in Ser um or PlasmaOrdered By: Juventino Thompson on 07-04-2023 Sodium [Moles/Vol] 130 mmol/L 136-145 [facility] Specific gravity Auto test s trip (U) [Rel density]Ordered By: PROVIDER TEMP on 07-04-2023 Specific gravity (U) [Rel density] 1.017 1.001-1.03 0 [facility] Squamous epithelial cells de tection in urine sediment by light microscopyOrdered By: PROVIDER TEMP on 07-04-2023 Epithelial cells.squamous LM Ql (Urine sed) 0-1 [HPF] 0-2 [facility] Urea nitrogen [Mass/volume] in Serum or PlasmaOrdered By: Juventino Thompson on 07-04-2023 Urea nitrogen [Mass/Vol] 26 mg/dL 7-25 [facility] Urine Cultureon 07-04-2023 Bacteria identified Cx Nom (U) ORGANISM: Enterobacter cloacae complex (O:ENTCLOCPLX) [place] Count >100,000 Aerobic CLEM Charge (NMIC56) SUSCEPTIBILITY ORGANISM: O:ENTCLOCPLX ANTIBIOTIC INTERPRETATION CLEM Amikacin S <16 Aztreonam IB <4 Cefepime S <2 Ceftazidime IB <1 Ceftriaxone IB <1 Cefuroxime IB 8 Ciprofloxacin S <0.25 Ertapenem S <0.5 Gentamicin S <2 Levofloxacin S <0.5 Meropenem S <1 Meropenem/Vaborbactam S <2 Nitrofurantoin I 64 Piperacillin/Tazobactam IB <8 Tetracycline S <4 Tigecycline S <2 Tobramycin S <2 Trimethoprim/Sulfamethoxaz ole S <0.5 S = SUSCEPTIBLE I = INTERMEDIATE R = RESISTANT BLANK = DATA NOT AVAILABLE, OR DRUG NOT ADVISABLE OR TESTED R* = RESISTANCE DUE TO EXTENDED SPECTRUM BETA-LACTAMASES ESBL = EXTENDED SPECTRUM BETA-LACTAMASE TFG = THYMIDINE-DEPENDENT STRAIN GLORY = BETA-LACTAMASE POSITIVE IB = INDUCIBLE BETA-LACTAMASE. APPEARS IN PLACE OF 'S' WITH SPECIES KNOWN TO POSSESS INDUCIBLE BETA-LACTAMASES. POTENTIALLY THEY MAY BECOME RESISTANT TO ALL B-LACTAM DRUGS. PERFORMED BY: [place] [address] PATHOLOGIST FIELD STAFF MANAGER SALINA HASSAN M.D. [facility] Comment on above: Performed By: #### A KUSH NGUYEN #### [address] Urine bacteria detection by automated methodOrdered By: PROVIDER TEM on 07-04-2023 Bacteria Auto Ql (U) 4+ None Seen [facility] Urine clarity by refractomet ry automatedOrdered By: PROVIDER TEMP on 07-04-2023 Clarity Refractometry automated (U) Turbid Clear [facility] Urine glucose measurement by automated test strip (mass/volume)Ordered By: PROVIDER TEMP on 07-04-2023 Glucose Auto test strip (U) [Mass/Vol] Normal mg/dL Normal [facility] Urine hemoglobin detection b y automated test stripOrdered By: PROVIDER TEMP on 07-04-2023 Hemoglobin Auto test strip Ql (U) 3+ Negative [facility] Urine leukocyte esterase det ection by automated test stripOrdered By: PROVIDER TEMP on 07-04-2023 Leukocyte esterase Auto test strip Ql (U) 4+ Negative [facility] Urobilinogen Auto test strip (U) [Mass/Vol]Ordered By: PROVIDER TEMTimothy on 07-04-2023 Urobilinogen (U) [Mass/Vol] Normal mg/dL Normal [facility] WBC Auto (Bld) [#/Vol]Ordere d By: Juventino Thompson on 07-04-2023 WBC (Bld) [#/Vol] 19.3 10*3/uL 4.1-10.5 [facility] pH Auto test strip (U)Ordere d By: PROVIDER TEMP on 07-04-2023 pH (U) 6.0 [pH] 5.0-9.0 [facility] Physician Orderon 10-14-2022 Physician Order [id number]#[id number]:127 Normal [facility] Patient Educationon 10-12-20 Patient Education Urology Benign Prostatic Hyperplasia Benign prostatic hyperplasia (BPH) is an enlarged prostate gland that is caused by the normal aging process and not by cancer. The prostate is a walnut-sized gland that is involved in the production of semen. It is located in front of the rectum and below the bladder. The bladder stores urine and the urethra is the tube that carries the urine out of the body. The prostate may get bigger as a man gets older. An enlarged prostate can press on the urethra. This can make it harder to pass urine. The build-up of urine in the bladder can cause infection. Back pressure and infection may progress to bladder damage and kidney (renal) failure. What are the causes? This condition is part of a normal aging process. However, not all men develop problems from this condition. If the prostate enlarges away from the urethra, urine flow will not be blocked. If it enlarges toward the urethra and compresses it, there will be problems passing urine. What increases the risk? This condition is more likely to develop in men over the age of 50 years. What are the signs or symptoms? Symptoms of this condition include: ? Getting up often during the night to urinate. ? Needing to urinate frequently during the day. ? Difficulty starting urine flow. ? Decrease in size and strength of your urine stream. ? Leaking (dribbling) after urinating. ? Inability to pass urine. This needs immediate treatment. ? Inability to completely empty your bladder. ? Pain when you pass urine. This is more common if there is also an infection. ? Urinary tract infection (UTI). How is this diagnosed? This condition is diagnosed based on your medical history, a physical exam, and your symptoms. Tests will also be done, such as: ? A post-void bladder scan. This measures any amount of urine that may remain in your bladder after you finish urinating. ? A digital rectal exam. In a rectal exam, your health care provider checks your prostate by putting a lubricated, gloved finger into your rectum to feel the back of your prostate gland. This exam detects the size of your gland and any abnormal lumps or growths. ? An exam of your urine (urinalysis). ? A prostate specific antigen (PSA) screening. This is a blood test used to screen for prostate cancer. ? An ultrasound. This test uses sound waves to electronically produce a picture of your prostate gland. Your health care provider may refer you to a specialist in kidney and prostate diseases (urologist). How is this treated? Once symptoms begin, your health care provider will monitor your condition (active surveillance or watchful waiting). Treatment for this condition will depend on the severity of your condition. Treatment may include: ? Observation and yearly exams. This may be the only treatment needed if your condition and symptoms are mild. ? Medicines to relieve your symptoms, including: ? Medicines to shrink the prostate. ? Medicines to relax the muscle of the prostate. ? Surgery in severe cases. Surgery may include: ? Prostatectomy. In this procedure, the prostate tissue is removed completely through an open incision or with a laparoscope or robotics. ? Transurethral resection of the prostate (TURP). In this procedure, a tool is inserted through the opening at the tip of the penis (urethra). It is used to cut away tissue of the inner core of the prostate. The pieces are removed through the same opening of the penis. This removes the blockage. ? Transurethral incision (TUIP). In this procedure, small cuts are made in the prostate. This lessens the prostate's pressure on the urethra. ? Transurethral microwave thermotherapy (TUMT). This procedure uses microwaves to create heat. The heat destroys and removes a small amount of prostate tissue. ? Transurethral needle ablation (TUNA). This procedure uses radio frequencies to destroy and remove a small amount of prostate tissue. ? Interstitial laser coagulation (ILC). This procedure uses a laser to destroy and remove a small amount of prostate tissue. ? Transurethral electrovaporization (TUVP). This procedure uses electrodes to destroy and remove a small amount of prostate tissue. ? Prostatic urethral lift. This procedure inserts an implant to push the lobes of the prostate away from the urethra. Follow these instructions at home: ? Take [id number] and prescription medicines only as told by your health care provider. ? Monitor your symptoms for any changes. Contact your health care provider with any changes. ? Avoid drinking large amounts of liquid before going to bed or out in public. ? Avoid or reduce how much caffeine or alcohol you drink. ? Give yourself time when you urinate. ? Keep all follow-up visits as told by your health care provider. This is important. Contact a health care provider if: ? You have unexplained back pain. ? Your symptoms do not get better with treatment. ? You d (more content not included)... Normal [facility] Operative Reporton Operative Report [id number]:127 Normal [facility] Ambulatory Visit Summaryon 1 11-28-2021 Ambulatory Visit Summary ABREUTIERNEYRoddy Mullen :1960 Visit Date:09/28/2022 Ambulatory Visit Instructions Your Care Team Attending Physician - ASHKAN ANGELES, Juventino Sims Primary Care Physician - FOSTER GUTIERREZ, GINNY Clark This Is Your Medications List acetaminophen (Pain Relief Extra Strength) atorvastatin (atorvastatin 40 mg Tab) cetirizine (cetirizine 10 mg oral capsule) cholecalciferol (Vitamin D3 5000 intl units oral tablet) ciprofloxacin (Cipro 500 mg Tab) doxycycline (doxycycline hyclate 100 mg Cap) hydrochlorothiazide (hydrochlorothiazide 12.5 mg Cap) lisinopril (lisinopril 20 mg Tab) losartan (losartan 25 mg Tab) metformin (metformin 500 mg Tab) timmy flynn sitagliptin (Januvia 100 mg Tab) tamsulosin (tamsulosin 0.4 mg Cap) Procedures Performed History of hernia repair, Procedure on knee, Urethral dilatation. What to do next Scheduled Follow-Up Appointments Monday 2:00 PM EST With: Juventino LEE MD Where: [facility] Glucose Glucometer (BldC) [M ass/Vol]Ordered By: Juventino Lee on 09-27-2022 Glucose [Mass/Vol] 108 mg/dL [facility] Comment on above: Random Glucose Refer ence Range is dependent on time and content of last meal. Glucose of more than 200 mg/dL in a nonstressed, ambulatory subject supports the diagnosis of Diabetes Mellitus. Glucose Poct Glucometerson 1 11-27-2021 Commemt1 Glu2: Cleaned Meter [facility] Comment on above: Result Comment: PERF ORMED BY: [facility] [address] [facility] [place] [address] PATHOLOGIST FIELD STAFF MANAGER SALINA HASSAN M.D. Performed By: #### G LULS #### Point of Care testing , Glucose [Mass/Vol] 108 mg/dL [facility] Comment on above: Result Comment: [place] Glucose Reference Range is dependent on time and content of last meal. Glucose of more than 200 mg/dL in a nonstressed, ambulatory subject supports the diagnosis of Diabetes Mellitus. Performed By: #### G LULS #### Point of Care testing , No Panel InformationOrdered By: Juventino Lee on 09-27-2022 Bedside Glucose Comment Glu2: cleaned meter [facility] Lab Reportson 09-26-2022 Lab Reports [id number]:127 [facility] Pre-Certification Formon Pre-Certification Form [id number]#[id number]:127 [facility] Activated partial thrombopla stin time (aPTT) in platelet poor plasma by coagulation aOrdered By: Juventino Lee on 09-13-2022 aPTT Coag (PPP) [Time] 31.5 s 25.1-36.5 [facility] Basic Metabolic Panelon 11-0 Anion gap [Moles/Vol] 12.2 mmol/L Normal 6.0-15.0 [facility] Comment on above: Performed By: #### P TT, CBC, PT, BMP #### [facility] [address] Calcium [Mass/Vol] 9.6 mg/dL Normal 8.2-10.2 [facility] Comment on above: Result Comment: PERF ORMED BY: [place] [address] PATHOLOGIST FIELD STAFF MANAGER SALINA HASSAN M.D. Performed By: #### P TT, CBC, PT, BMP #### [address] Chloride [Moles/Vol] 104 mmol/L Normal 95-114 [facility] Comment on above: Performed By: #### P TT, CBC, PT, BMP #### [address] CO2 [Moles/Vol] 22.2 mmol/L Normal 22.0-30.0 [facility] Comment on above: Performed By: #### P TT, CBC, PT, BMP #### [address] Creatinine [Mass/Vol] 0.90 mg/dL Normal 0.64-1.27 [facility] Comment on above: Performed By: #### P TT, CBC, PT, BMP #### [place] [address] [place] Estimated GFR ( Veronica > 60 Normal [facility] Comment on above: Result Comment: GFR estimated reference range: According to KDOQI guidelines, <60 ml/min/1.73m2 is sufficient to diagnose a patient with chronic kidney disease. Performed By: #### P TT, CBC, PT, BMP #### [place] [address] [place] Estimated GFR (Non- Am > 60 Normal [facility] Comment on above: Performed By: #### P TT, CBC, PT, BMP #### [facility] [address] Glucose [Mass/Vol] 163 mg/dL High 70-100 [facility] Comment on above: Result Comment: [place] Glucose Reference Range is dependent on time and content of last meal. Glucose of more than 200 mg/dL in a nonstressed, ambulatory subject supports the diagnosis of Diabetes Mellitus. ADA recommended reference range Performed By: #### P TT, CBC, PT, BMP #### [facility] [address] Potassium [Moles/Vol] 4.4 mmol/L Normal 3.5-5.1 [facility] Comment on above: Performed By: #### P TT, CBC, PT, BMP #### [facility] [address] Sodium [Moles/Vol] 134 mmol/L Low 136-146 [facility] Comment on above: Performed By: #### P TT, CBC, PT, BMP #### [facility] [address] [place] [address] [place] Urea nitrogen [Mass/Vol] 24 mg/dL High 9-23 [facility] Comment on above: Performed By: #### P TT, CBC, PT, BMP #### [facility] [address] [place] [address] [place] Basophils Auto (Bld) [#/Vol] Ordered By: Juventino Lee on 09-13-2022 Basophils (Bld) [#/Vol] 0.0 10*3/uL 0.0-0.2 [facility] Basophils/100 WBC Auto (Bld) Ordered By: Juventino Lee on 09-13-2022 Basophils/100 WBC (Bld) 0.1 % . [facility] Complete Blood Count Auto Di ffon 09-13-2022 Basophils (Bld) [#/Vol] 0.0 10*3/uL Normal 0.0-0.2 [facility] Comment on above: Result Comment: PERF ORMED BY: [place] [address] PATHOLOGIST FIELD STAFF MANAGER SALINA HASSAN M.D. Performed By: #### P TT, CBC, PT, BMP #### [address] Basophils/100 WBC (Bld) 0.1 % Normal . [facility] Comment on above: Performed By: #### P TT, CBC, PT, BMP #### [address] Eosinophils (Bld) [#/Vol] 0.0 10*3/uL Normal 0.0-0.45 [facility] Comment on above: Performed By: #### P TT, CBC, PT, BMP #### [address] Eosinophils/100 WBC (Bld) 0.2 % Normal . [facility] Comment on above: Performed By: #### P TT, CBC, PT, BMP #### [address] Erythrocyte distribution width (RBC) [Ratio] 14.2 % Normal 12.0-14.8 [facility] Comment on above: Performed By: #### P TT, CBC, PT, BMP #### [address] Hematocrit (Bld) [Volume fraction] 48.6 % Normal 38.8-50.0 [facility] Comment on above: Performed By: #### P TT, CBC, PT, BMP #### [address] Hemoglobin (Bld) [Mass/Vol] 15.6 g/dL Normal 13.0-17.0 [facility] Comment on above: Performed By: #### P TT, CBC, PT, BMP #### [address] Lymphocytes (Bld) [#/Vol] 0.8 10*3/uL Low 1.00-4.8 [facility] Comment on above: Performed By: #### P TT, CBC, PT, BMP #### [facility] [address] [place] [address] [place] Lymphocytes/100 WBC (Bld) 8.5 % Normal . [facility] Comment on above: Performed By: #### P TT, CBC, PT, BMP #### [facility] [address] MCH (RBC) [Entitic mass] 26.2 pg Low 27.5-35.2 [facility] Comment on above: Performed By: #### P TT, CBC, PT, BMP #### [facility] [address] MCV (RBC) [Entitic vol] 81.6 fL Low 83.5-101 [facility] Comment on above: Performed By: #### P TT, CBC, PT, BMP #### [address] Mean Corpuscular HGB Conc 32.1 g/dL Low 32.5-35.6 [facility] Comment on above: Performed By: #### P TT, CBC, PT, BMP #### [place] [address] [place] Monocytes (Bld) [#/Vol] 0.5 10*3/uL Normal 0.0-0.8 [facility] Comment on above: Performed By: #### P TT, CBC, PT, BMP #### [place] [address] [place] Monocytes/100 WBC (Bld) 5.2 % Normal . [facility] Comment on above: Performed By: #### P TT, CBC, PT, BMP #### [place] [address] [place] Neutrophils (Bld) [#/Vol] 8.5 10*3/uL High 1.8-7.7 [facility] Comment on above: Performed By: #### P TT, CBC, PT, BMP #### [place] [address] [place] Neutrophils/100 WBC (Bld) 86.0 % Normal . [facility] Comment on above: Performed By: #### P TT, CBC, PT, BMP #### [facility] [address] Nucleated RBC/100 WBC (Bld) [Ratio] 0.0 % Normal 0-0.5 [facility] Comment on above: Performed By: #### P TT, CBC, PT, BMP #### [facility] [address] Platelet mean volume (Bld) [Entitic vol] 7.7 fL Normal 6.6-10.1 [facility] Comment on above: Performed By: #### P TT, CBC, PT, BMP #### [address] Platelets (Bld) [#/Vol] 308 10*3/uL Normal 150-450 [facility] Comment on above: Performed By: #### P TT, CBC, PT, BMP #### [address] RBC (Bld) [#/Vol] 5.95 10*6/uL High 3.90-5.60 [facility] Comment on above: Performed By: #### P TT, CBC, PT, BMP #### [address] WBC (Bld) [#/Vol] 9.8 10*3/uL Normal 4.5-11.0 [facility] Comment on above: Performed By: #### P TT, CBC, PT, BMP #### [address] Creatinine and Glomerular fi ltration rate.predicted panel (S/P/Bld)Ordered By: Juventino Lee on 09-13-2022 Creatinine [Mass/Vol] 0.90 mg/dL 0.64-1.27 [facility] Eosinophils Auto (Bld) [#/Vo l]Ordered By: Juventino Lee on 09-13-2022 Eosinophils (Bld) [#/Vol] 0.0 10*3/uL 0.0-0.45 [facility] Eosinophils/100 WBC Auto (Bl d)Ordered By: Juventino Lee on 09-13-2022 Eosinophils/100 WBC (Bld) 0.2 % . [facility] Erythrocyte distribution wid th Auto (RBC) [Ratio]Ordered By: Juventino Lee on 09-13-2022 Erythrocyte distribution width (RBC) [Ratio] 14.2 % 12.0-14.8 [facility] Estimated glomerular filtrat ion rate (GFR) non- AmericanOrdered By: Juventino Lee on 09-13-2022 GFR/1.73 sq M.predicted among non-blacks MDRD (S/P/Bld) [Vol rate/Area] > 60 mL/Min [facility] Hematocrit Auto (Bld) [Volum e fraction]Ordered By: Juventino Lee on 09-13-2022 Hematocrit (Bld) [Volume fraction] 48.6 % 38.8-50.0 [facility] Hemoglobin [Mass/volume] in BloodOrdered By: Juventino Lee on 09-13-2022 Hemoglobin (Bld) [Mass/Vol] 15.6 g/dL 13.0-17.0 [facility] Laboratory - CoagulationOrde red By: Juventino Lee on 09-13-2022 PT Coag (PPP) [Time] 10.9 s 9.0-12.9 [facility] Laboratory - Hematology and Cell countsOrdered By: Juventino Lee on 09-13-2022 Nucleated RBC/100 WBC (Bld) [Ratio] 0.0 % 0-0.5 [facility] Leukocytes [#/volume] in Blo od by Automated countOrdered By: Juventino Lee on 09-13-2022 WBC (Bld) [#/Vol] 9.8 10*3/uL 4.5-11.0 [facility] Lymphocytes Auto (Bld) [#/Vo l]Ordered By: Juventino Lee on 09-13-2022 Lymphocytes (Bld) [#/Vol] 0.8 10*3/uL 1.00-4.8 [facility] Lymphocytes/100 WBC Auto (Bl d)Ordered By: Juventino Lee on 09-13-2022 Lymphocytes/100 WBC (Bld) 8.5 % . [facility] MCH Auto (RBC) [Entitic mass ]Ordered By: Juventino Lee on 09-13-2022 MCH (RBC) [Entitic mass] 26.2 pg 27.5-35.2 [facility] MCHC Auto (RBC) [Mass/Vol]Or dered By: Juventino Lee on 09-13-2022 MCHC (RBC) [Mass/Vol] 32.1 g/dL 32.5-35.6 [facility] MCV Auto (RBC) [Entitic vol] Ordered By: Juventino Lee on 09-13-2022 MCV (RBC) [Entitic vol] 81.6 fL 83.5-101 F [facility] Monocytes Auto (Bld) [#/Vol] Ordered By: Juventino Lee on 09-13-2022 Monocytes (Bld) [#/Vol] 0.5 10*3/uL 0.0-0.8 [facility] Monocytes/100 WBC Auto (Bld) Ordered By: Juventino Lee on 09-13-2022 Monocytes/100 WBC (Bld) 5.2 % . F [facility] Neutrophils Auto (Bld) [#/Vo l]Ordered By: Juventino Lee on 09-13-2022 Neutrophils (Bld) [#/Vol] 8.5 10*3/uL 1.8-7.7 [facility] Neutrophils/100 WBC Auto (Bl d)Ordered By: Juventino Lee on 09-13-2022 Neutrophils/100 WBC (Bld) 86.0 % . [facility] No Panel InformationOrdered By: Juventino Lee on 09-13-2022 Estimated GFR () > 60 mL/Min [facility] Comment on above: GFR estimated refere nce range: According to KDOQI guidelines, <60 ml/min/1.73m2 is sufficient to diagnose a patient with chronic kidney disease. Pharmacy Creatinine Clearance (Chem N/A [facility] Partial Thromboplastin Timeo n 09-13-2022 aPTT Coag (Bld) [Time] 31.5 s Normal 25.1-36.5 [facility] Comment on above: Result Comment: PERF ORMED BY: [facility] [address] [place] [address] PATHOLOGIST FIELD STAFF MANAGER SALINA HASSAN M.D. Performed By: #### P TT, CBC, PT, BMP #### [facility] [address] Platelet mean volume Auto (B ld) [Entitic vol]Ordered By: Juventino Lee on 09-13-2022 Platelet mean volume (Bld) [Entitic vol] 7.7 fL 6.6-10.1 [facility] Platelet poor plasma interna tional normalized ratio (INR) by coagulation assay (relatOrdered By: Juventino Lee on 09-13-2022 INR Coag (PPP) [Relative time] 1.0 {INR} [facility] Comment on above: INR Therapeutic Rang e A) Pre- and Peroperative OAT started two weeks before surgery. NOT HIP SURGERY: 1.5 - 2.5 HIP SURGERY: 2 - 3B) Primary and secondary prevention of venous THROMBOSIS: 2 - 3C) Active venous thrombosis, pulmonary embolismand prevention of recurrent venous thrombosis: 2 - 3D) Prevention of arterial thromboembolismincluding patients with mechanical heart valves: 3 - 4.5 Platelets Auto (Bld) [#/Vol] Ordered By: Juventino Lee on 09-13-2022 Platelets (Bld) [#/Vol] 308 10*3/uL 150-450 [facility] Pre-Certification Formon Pre-Certification Form [id number]#[id number]:127 Normal [facility] Prothrombin Time INRon 09-13 INR Coag (PPP) [Relative time] 1.0 {INR} Normal [facility] Comment on above: Result Comment: INR Therapeutic Range A) Pre- and Peroperative OAT started two weeks before surgery. NOT HIP SURGERY: 1.5 - 2.5 HIP SURGERY: 2 - 3 B) Primary and secondary prevention of venous THROMBOSIS: 2 - 3 C) Active venous thrombosis, pulmonary embolism and prevention of recurrent venous thrombosis: 2 - 3 D) Prevention of arterial thromboembolism including patients with mechanical heart valves: 3 - 4.5 Performed By: #### P TT, CBC, PT, BMP #### [facility] [address] [place] [id number] [place] PT Coag (PPP) [Time] 10.9 s Normal 9.0-12.9 [facility] Comment on above: Performed By: #### P TT, CBC, PT, BMP #### [facility] [address] RBC Auto (Bld) [#/Vol]Ordere d By: Juventino Lee on 09-13-2022 RBC (Bld) [#/Vol] 5.95 10*6/uL 3.90-5.60 [facility] Serum or plasma anion gap de terminationOrdered By: Juventino Lee on 09-13-2022 Anion gap [Moles/Vol] 12.2 mmol/L 6.0-15.0 [facility] Serum or plasma calcium jeremiah urement (mass/volume)Ordered By: Juventino Lee on 09-13-2022 Calcium [Mass/Vol] 9.6 mg/dL 8.2-10.2 [facility] Serum or plasma chloride daniel surement (moles/volume)Ordered By: Juventino Lee on 09-13-2022 Chloride [Moles/Vol] 104 mmol/L 95-114 [facility] Serum or plasma glucose jeremiah urement (mass/volume)Ordered By: Juventino Lee on 09-13-2022 Glucose [Mass/Vol] 163 mg/dL 70-100 [facility] Comment on above: ADA recommended refe rence rangeRandom Glucose Reference Range is dependent on time and content of last meal. Glucose of more than 200 mg/dL in a nonstressed, ambulatory subject supports the diagnosis of Diabetes Mellitus. Serum or plasma potassium me asurement (moles/volume)Ordered By: Juventino Lee on 09-13-2022 Potassium [Moles/Vol] 4.4 mmol/L 3.5-5.1 [facility] Serum or plasma sodium measu rement (moles/volume)Ordered By: Juventino Lee on 09-13-2022 Sodium [Moles/Vol] 134 mmol/L 136-146 [facility] Serum or plasma total carbon dioxide measurement (moles/volume)Ordered By: Juventino Lee on 09-13-2022 CO2 [Moles/Vol] 22.2 mmol/L 22.0-30.0 [facility] Serum or plasma urea nitroge n measurement (mass/volume)Ordered By: Juventino Lee on 09-13-2022 Urea nitrogen [Mass/Vol] 24 mg/dL 07-29 [facility] Urine Cytology ([facility])on Urine Cytology Diagnosis Info Invalid Interpretation Code [facility] Comment on above: Result Comment: A:Ur ine,Urine:Cystoscopy Interpretation - MicroScopic Description - Adequacy - Gross Description Site ID:A color V. Light Yellow fixative Alcohol Specimen designated Urine received in alcohol preservative and labeled with the patient?s name, consists of 90ml clear v. light yellow fluid. One non-music promoter cytology slide prepared. Electronically signed by : on: 08/23/2022 08:55:54 Performed By: #### 1 [id number] ####[facility] [place] [address] Coding Summary.on 08-17-2022 Coding Summary. CD:[id number] Gh0bWw +PGhlYWQ+YB2DZRIfR74hkYTfj E3VJ6rZTC7CZKWZZQOUCP8LZQ1 aoMG3BNhiJ3UftwMx RopmfEWkPY54SNq0OVO0dFxxUL ccgX6yuDVwO3m8DkHfHL91oW47 OPzwVBXsOnY4HbClsdkvwDFe J3djSmXgbEPlQor+PHRhYmxlIH lcPREmFBdmFZArEwOkhCimJX9t Hz4rXQQaUFPehJctmHQdDqKp s6ktESGtOWtkYU6tkZldO7ZvzX Z3DHXps1n5Hz85lHZ+PHRkIHN0 uWqeHEaeg171ZlYwu4sfUFY8 kVSfUPuzBHS5R96ev0K6TBJzYB AkRNV4hWN7bK4haHcovudvF7Zo ePArBuI8HIX3fIEbhP7ddCzh pedxsB5pYpe+F76NEG6VDZNNEA 5PGka1I3PsIejmeAS+WZ46JNBg ST43aDEyaRUcr6rouDi8HaJq FPAlUYI3cJkyCBfje7LuKKNwT2 5uaIGnu7N2OTUldFbmxTLaOsFl cJV0cG2fGXumdfxuy5baopmf Smusa4fdhe36cV87D75hCChxBC UtXKU0FFWpEINtuTtbbh4ynK9h Ii8+QIeru3tuq8lwtHc5FpKq ICTjpaOzcZbeEXV0v4IqSd23K1 CuyAxuy1XjBuz0eo80xWVcb2G0 jLJ0VFgzHMQejS6tTDkwSyT4 JDVdLhRtrA17dTHgNAekBa8oxM sgnGsqYV2jCMQgpbaeLIFouD6z ZFRraPIvvOvvRC0rEJEthqgg a319FxHhXWL1OPPrpSYgK0YaaM 7lYxScCIZeKVAvF7MyaFKgULyn A306YFunNgT5KEWwadDlB3Gl UUJfnBmhNmG1u7J9Fn5Ri8Pqla viTGV0EDtvTXNcAaWuKcGeQhB5 E0NpZqi7PGNdjTbeNV6xP4Ux WAUwnfovgjoeiCE1LMHuUSFrwW 39kZIcKTleAh9tk9W7k518HHHa SJIkrP17Lh9ldRslGQMjpUYB pM4vycupl6qekqleLbZrQMMvSS m3MZq8OEAraWdfPpQmKOX8IzU4 ILT9uWCmmW2vsHfcouwxdF0n Oyc+Y56rnJ7eSAA5TBT9fjceOI LodfKiPL68SM28R1JeVhpjwNIn bGU+QYMobxVgwVtnIN7pKoEj v5bnb1FuJRbdM9AgNLJcTOfxPc r3TXJaSWJ3vBV5lY3oGJNtNBss r6I4dTE5L9MujtUdgr0iz1xk QQApSZgbT50owSGsf7T7APIstN Q1PQEveQfhKoOjbO91Dsb+PGNv sGyzx1WpNzjwj3qqy8hqrMa8 WaDcZZVrotQxrYooEJP4q7JhGf 78O08ePJamFHRqWCBpKWTzODSf uVaeqy5vlL4cOw0+PGNvbCB3 hRV8bC4nSLSyIvJ9VZyiI704Sc QcaMAuOcknz2pan6ovsJx0TkZe YFUetrFxkEwmFXC1r5FjRx87 Z45jFAhuSAWpQWMfBOOmWKJsvZ tsfo4opE1aYa6+RT9rp5aexa25 kJ54yHU+TLLmCJH1yPatUAam ZCSkuF6dYKmdUrW0MUJjMgNdfG 29iAJuEHvqHl4nyGzxxPixLO2f UYUcvcbag425KdByo0kmLNLe tTEgBLxePTI9Q25hu1S0GLIeUZ FtWMJ8dYN0gX2yuMhuthmzlBJi hGgjfrKwrKlzRArvFRwxO758 IHRvcDsnPlBhdGllbnQgTmFtZT h6M3UhAck0LADmwAncPM5xcYMt NPhoYg0hdOovdKwnUB3gRWTg igqut904HkNzc6stYQQrvTBtEP lyRYW9S94fz0S2VPPfYCFcFXG9 zTN1iW0sdObwqeabqDFvnPsc ghGgoBfsLPpwXRdcI526NDWxaZ rhMjZumkXsYUYcaIC9MD84SN09 vHIuf0M0gOJ4S7VlKXBkdmdz mtnneKR1MJXuJVQckP11Ji8fvL ztTg7vILIjSGZ2CEKnxDBlP2Ei tA3kOfWuIWWaISAaA0ZvsOGb UPidZ200TLzuWtI9FNFxhkOiR2 LoPPGtzNjtAfI8k1S0Sd5RQ3Q9 HV36FO14tDWhv6I2vMK6X6Aw JNDkscvdjvmvxEM6RVCfEXGgwJ 90Iv5haLpzHd0iMQZaYDM3PFCw hZNoZ3OfmN8xZdWxWQBaBTJv Y1LjxTMnYEslC635XCafTtP8WM FrhnNkC0BtYCLrvUqxGnK8s0W6 Tt2QROh2QT54HG74bEPaf2D0 aGK5Y3WtONNvvfhuwubcfWI7NG XeIACkdZ54Qj4rkEbeHo7kIXSn OIT6NNIqpJNwJ9JjoL4xQhZx HVXgCBNgA7WpkQXxNXxfD546VX sbCfI5XFAujkHeQ2ZrDZNarXqh XdB0j6J1Xa4PWJGlOA56UMA8 cQZ6AP53ED93S9TnRvgzbFQtcH U+PHRhYmxlIHdpZHRoPScxMDAl MhTfbUmbXY5tXb1zXFGvDUGn yMgqqPSeKgNwp1unIZIrPRimMQ 0kmNkhK9PqhFC1GSXvu0q0Ut63 V80dR1JywCP+ODZtqJV8eCV8 vD8wWqGtOeR6TSrrG526IvOkvW XtYxstf5eps2dnqEv4HxV2SJYj yzJtuAacMOW2l3GsNu23N82y IHdpZHRoPSIxNSUiIHZhbGlnbj 9bdJ7tQz3+GDMmqLN5cCE3jX1t OtAnHhZ0PFiqN259GpLcdHOp Pwmyj9fgq6kscEd0WdEbCVOktq KlxRdrTNA4y1BxYf54U7MojFhh r6LlTtf3xe35jURmo8E0xVP3 M6TlQNNmjozfvUWjdXtjUO8lAA FshrwlTZGecR5xNMGyP8b4OmEt HnH4SMszQ2XigcJ1FENgbPKy YRvsITV5D34ys1B5DOQaNMZlEZ Z3eIS3aV7joQiyqyumvIQiaCry uuVvqZzlGIfjUXbiU004QICe fKfxISNtmV8uDXQmnPMxkAfgYP 4wNTBpbjsnPkdPTlpBTEVTLCBI DP5TJJBHSxIUYL33TS61pFYh s9S2sTX6I2CdMZHbahgoekgxaJ V3DWCaTIHajH44uDUyYBomPp1p j7V3m711GOWjRMBgiF45Cu9g eUpqWADcfGWZjX3ijtzdp3yvmm dxVgAuFRXoCJg5OMy4QQWbsGyn GvCkRJX8TaW1QUB7dPVzyY6a uYcqywusdB3pCsq+MDUvMTIvMT c0HCllwRN+JOZlKGG1kVpkKUmt QVXthK7zNTJdU7m0EiLyVfH0 DHxfH2SkALDxwsgiGx14xQ1lHi SiIuS0LJuaN1HxleU7OJAvbRFd XLlsBIK3S49zv3M1UEYyOOOb SGV1hWH2hS7lfBsfdxftyMYkoJ zfigOmfCutEPytVGgwG869DHRq wAvtWeIyCZooYVJkLV19KX29 sNCop4E9xGB1Q9PfTZEkpgxcnk lgtYX2VRWjJGLqnL03sQDqSBkq Ld4up1O8d252NFSvMJHtuP04 Eh2zpOoqRNFbrQONlU6zolfel1 qdoozjUsGfVZVvALh6SWv8MXPf iBvsOsJfAAH8CzL1EZC9nQPh iA3paWpesyxwnC5nZof+TWFsZT wvdGQ+RRRrCZT6iTqzUMdeFJUb uY0dWWNzX2d6UcTdBnF0NUos E1YyWQXdudumLy52aU0uZoVbYi Q3KHpfH7ZpbzV6XCTjaGLvGVgo ZSF1L72sl9H5EGItAEWjWMI3 tUE7bQ4kfMynxelanRAmmNrjfz OyxOzzDJtnIFtvX421COSquYxk Fj68kLZlxTlbilA0T7EpSpqk dHI+DS76PEYgID47mYFixCOvc3 awaUb1LqWfODHcNXD2lWfmLKlq n9CqYWAlB93zzDXwp5J8QCQp cZskjAWqZsTchGL4vN1oRGdwwj cor9tdrvtnIzxua8zkxu27bT09 P20bVDrqQPAzSXUfFAZvRURm dLcxii4loV3yXu4+VYPseMT9yA M4qD9jSiKbPnN4IWxeZ045FpEr aBDjQqtqc2fmn9gbnYw6RvZz GNFdtvQakAiwQGT7f1GrTq98C0 9sIHdpZHRoPSIyMCUiIHZhbGln na7gnA4jEm3+ZK9oa6ehuh23 eJ78aNH+OQXmEOE4sMuuPDayKB OxsN9yTMuhDmV8JKJjRvKyyS75 iMRdHGvkWe9lgNracMdbIF3j ZQYkyknwf136SzVmy3kzBKUwcA EdUXmlQHH7T68rv7I5UIIkHBEl IAO1kAQ7kO4abSukuzcigRQm lOlczwEmcDdyPGsaILtdE138MZ QggCqrSbAuaRVwQ4wsadXQYK4c OjwvdGQ+IFJjKUO9rGvyLNpq USXooS7jAEVnN8q2OwPgQxE0OP zwY1GivzF7WNGrzTMhNOAvuYZK uG6usefjt6nexyshNeYhDEJe QHo4PNx3VQFhtZccTdBxEBB6Kh H8CSD0uRLwmZ1kbMwcqrrrwX3s Oyc+RklOOjwvdGQ+PHRkIHN0 iSizCJivBKVgmI2gVUMsS0k2Ml KvNyB7FHmuC0AmadM7OBTtnSCi IDAiaKUIjG3gjpqje0oomoxf QsLsSNCpSGh0UUg6QJKhtQyaZo FyZBF3ThD9DGU0kGLhuP0xpIci vyrpvJ7zDvt+TVJOOjwvdGQ+ CTCyWAJ6lNbiWWzoFPWwrX1cLO DgM9a2BqJjLyJ8DMklV0LovrE7 DHMmnGHdFWVfnKCYxP1eoybx f7sbsrwsWaYaOOTpHXn5AHg2DL BfeTyzChKfRLP2NtF3CTD9tAHe aI9yxSqtdxvdfX0vKwf+UGF5 CFO9JF65YE30E3NfQspabUQjuJ U+PHRhYmxlIHdpZHRoPScxMDAl VrVlkOryAJ1rUx0dTLZaELXs bGxh (more content not included)... Normal [facility] Consent for Procedure/Surger yon 08-16-2022 Consent for Procedure/Surgery [id number]#[id number]:127 Normal [facility] Consent for Treatmenton 08-06 Consent for Treatment [id number]#[id number]:127 Normal [facility] IntraOperative Documentson 1 IntraOperative Documents [id number]#1.00CD:127 [facility] IntraOperative Documents [id number]#1.00CD:127 Normal [facility] IntraOperative Documents [id number]#1.00CD:127 Normal [facility] Main OR Intraoperative Recor don 08-16-2022 Main OR Intraoperative Record IntraOp Document Type FTURO Summary Primary Physician: Juventino LEE MD Finalized Date/Time: 08/16/22 12:10:04 Pt. Name: JUAN ABREU Sebas SimonB./Sex: 1960 Male Med Rec #: [id number] Physician: Juventino LEE MD Financial #: [id number] Pt. Type: O Room/Bed: / Admit/Disch: 08/16/22 09:37:52 - Institution: Case Times FTURO Entry 1 Patient Times In Room 08/16/22 11:47:00 Out Room 08/16/22 12:07:00 Procedure Times Start 08/16/22 11:50:00 Stop 08/16/22 12:00:00 Anesthesia Times Last Modified By: Leann Arias RN 08/16/22 12:07:14 Case Attendance FT[facility]O Entry 1 Entry 2 Entry 3 Case Attendee Juventino LEE MD, Jennifer K Barbee RN, Leann Hensley Role Performed Surgeon - Primary Scrub - Primary Fitter Tacker - Primary Time In 08/16/22 11:47:00 08/16/22 11:47:00 08/16/22 11:47:00 Time Out 08/16/22 12:07:00 08/16/22 12:07:00 08/16/22 12:07:00 Procedure CYSTOSCOPY LOCAL(.) CYSTOSCOPY LOCAL(.) CYSTOSCOPY LOCAL(.) Comments Last Modified By: Leann Arias RN, RN, Kimberly Y Barbee RN, Kimberly Y 08/16/22 12:07:15 08/16/22 12:07:15 08/16/22 12:07:15 Surgical Procedures FTURO Entry 1 Procedure Description Procedure CYSTOSCOPY LOCAL Modifiers . Surgeon Description CYSTOSCOPY LOCAL WITH CYTOLOGY ONLY Primary Procedure Yes Primary Surgeon Juventino LEE MD Start 08/16/22 11:50:00 Stop 08/16/22 12:00:00 Anesthesia Type Local Surgical Service Urology Wound Class 2 - Clean-Contaminated Last Modified By: Leann Arias RN 08/16/22 12:10:01 General Case Data [facility]O Pre-Care Text: Classifies surgical wound, implements aseptic technique, initiates traffic control Entry 1 Case Information OR URO 1 FT Case Level None Wound Class 2 - Clean-Contaminated Specialty Urology Preop Diagnosis INCOMPLETE EMPTY BPH Postop Same As Preop Yes WITH OBSTRUCTION BLADDER WALL THICKENING Postop Diagnosis INCOMPLETE EMPTY BPH Outcomes Met? Yes WITH OBSTRUCTION BLADDER WALL THICKENING Last Modified By: Leann Arias RN 08/16/22 11:50:28 Post-Care Text: The patient is free from signs and symptoms of infection EU IntraOp - FTURO Pre-Care Text: Implements protective measures prior to operative or invasive procedure, confirms identity before the operative or invasive procedure, verifies operative procedure, surgical site, and laterality Entry 1 EU Perioperative Protocols Procedure(s) CYSTOSCOPY LOCAL(.) Patient Identity Birthday, ID Band Verified (select at Check, Patient least 2): Participation Consents / H and P HandP, Surgery/Procedure Operative Site N/A Verified Consent Marking Verified Surgical Site Yes Laterality Verified Yes Verified Procedure Verified Yes Correct Patient Yes Position Verified Availability Equipment, Medication Time Out ASHKAN ANGELES, Juventino Sims, Verified (If Participants Ginny Atwood, Applicable) Leann Arias RN Time Out Complete 08/16/22 11:49:00 Allergies Reviewed? Yes Allergies Reviewed Self/Patient With Body Position Supine Prep Area PENIS Prep Agents Betadine Solution Skin. Condition Dry, Warm, Unable to Description UNABLE TO VISUALIZE DUE Visualize TO PATIENT PARTIALLY CLOTHED Additional Other (See Comment) Specimens Comment CYTOLOGY Specimens Collected Vitals - EU Blood Pressure 142/89 Pulse 89 bpm Respirations 16 br/min SPO2 EBL 0 IandO - EU Total Intake 0 mL Total Output 0 mL Outcomes Met? Yes Last Modified By: Leann Arias RN 08/16/22 12:06:01 Post-Care Text: The patient is free from signs and symptoms of injury caused by extraneous objects Sign Out FTURO Entry 1 Before Patient Leaves OR Nurse verbally Yes Nurse verbally Yes confirms with the confirms with the team the name of team that the procedure(s) instrument, sponge, recorded and needle counts are correct (or N/A) Nurse verbally Yes Nurse verbally Yes confirms with the confirms with the team how the team whether there specimen is labeled are any equipment (including patient problems to be name), if applicable addressed Sign Out Complete 08/16/22 12:00:00 Last Modified By: Leann Arias RN 08/16/22 12:03:56 Case Comments Finalized By: Leann Arias RN Document Signatures Signed By: Leann Arias RN 08/16/22 12:10 Normal [facility] Main OR Preoperative Recordo n 08-16-2022 Main OR Preoperative Record Holding Area Document Type FTURO Summary Primary Physician: Juventino LEE MD Finalized Date/Time: 08/16/22 11:35:58 Pt. Name: CHRISTOPHER JUAN C /Sex: 1960 Male Med Rec #: [id number] Physician: Juventino LEE MD Financial #: [id number] Pt. Type: O Room/Bed: / Admit/Disch: 08/16/22 09:37:52 - Institution: Case Times Holding FTURO Pre-Care Text: Verifies consent for planned procedure, identifies individual values and wishes concerning care, includes family members in perioperative teaching Secures patient's records' belongings, and valuables, maintains patient's dignity and privacy, and maintains patient confidentiality Entry 1 In Holding 08/16/22 11:34:00 Outcomes Met? Yes Last Modified By: EB Dahl RN, Ruthann 08/16/22 11:34:05 Post-Care Text: The patient participates in decisions affecting his or her perioperative plan of care The patient's right to privacy is maintained Surgery Checklist FTURO Entry 1 Patient Birthday, ID Band Procedure History and Physical, Identification: Check, Patient Verification: Surgical Consent, With Participation Patient NPO after Midnight: n/a Personal Items clothes Comment: Limitations: none Complaints of Pain: No Skin Integrity Unable to Visualize Vitals - EU Blood Pressure 142/89 Pulse 89 bpm Respirations 16 br/min SPO2 Additional None RN Reviewed Yes Specimens Collected Last Modified By: EB Dahl RN, Ruthann 08/16/22 11:35:56 Finalized By: EB Dahl RN, Ruthann Document Signatures Signed By: EB Dahl RN, Ruthann 08/16/22 11:35 Normal [facility] Operative Reporton Operative Report Patient: JUAN ABREU Age: 62 years Sex: Male : 1960 Associated Diagnoses: None Author: Juventino LEE MD Procedure Operative Information Details: Date/ Time: 08/16/2022 12:16:00. Pre-Op Dx: Bladder Mass - D41.4, BPH w/ LUTS - N40.1, Hx of UTI's - Z87.440, Incomplete Bladder Emptying - R39.14. Post-Op Dx: Same. Anesthesia Type: Local. Procedure: Local Cystoscopy. Complications: None. Risks/Benefits/Informed Consent: Surgical risks, benefits, details of the procedure have been explained to the patient, Full informed consent has been obtained. Intraoperative Information Prepped: Patient is brought back to the endoscopy suite, Patient is placed in supine position, Patient prepped in the usual fashion with Betadine solution, 2% Xylocaine Jelly is placed per Urethra, After waiting several minutes the Cystoscope is introduced. The Urethra is: Tight, Sequential strictures at the proximal penile urethra and bulb. Able to negotiate the flexible scope through them barely.. The Prostatic Urethra is: Unobstructed. The Bladder is: Trabeculated (Severe (3), Open diverticuli diffusely. Diffuse mucosal erythema. No bladder tumors. Right sided ureteral orifice Hutch diverticulum). The ureteral orifices: Show efflux of clear urine. Specimens Removed: Bladder wash sent for Cytology test. Devices Implanted: None. Removal: Cystoscope is removed, The patient tolerated it well. Postoperative Information Discharge: Patient is discharged home with antibiotic coverage, Follow up arranged. Normal [facility] Comment on above: Result Comment: Elec tronically Signed By: Juventino LEE MD\.br\Date and Time Signed: 08/16/22 12:18 EDT Progress Note-Physicianon Progress Note-Physician Patient: JUAN MARTELL Age: 62 years Sex: Male : 1960 Associated Diagnoses: None Author: Juventino LEE MD Subjective X this gentleman has a long history of bladder outlet obstructive symptoms. Recently, he had a urinary infection and went into retention. He was on antibiotics, specifically Cipro for 2 weeks and this improved his symptoms significantly. He is also taking Flomax at this time. Urodynamics today showed that he was not obstructed. He had only a mild to moderate postvoid residual. Pressure was low and flow was low to moderate. Review of Systems ROS reviewed as documented in chart Health Status Allergies: Allergic Reactions (Selected) No Known Allergies Current medications: Home Medications (13) Active atorvastatin 40 mg Tab 40 mg = 1 tab(s), Daily cetirizine 10 mg oral capsule 10 mg = 1 cap(s), PRN, Oral, Daily Cipro 500 mg Tab 500 mg = 1 tab(s), Oral, BID doxycycline hyclate 100 mg Cap 100 mg = 1 cap(s), Oral, BID hydrochlorothiazide 12.5 mg Cap 12.5 mg = 1 cap(s), Oral, Daily Januvia 100 mg Tab 100 mg = 1 tab(s) lisinopril 20 mg Tab 20 mg = 1 tab(s), Oral, Daily losartan 25 mg Tab 25 mg = 1 tab(s), Daily metformin 500 mg Tab 500 mg = 1 tab(s), Oral, BID Pain Relief Extra Strength 500 mg, Oral, q6hr saw palmetto , Oral, Daily tamsulosin 0.4 mg Cap 0.4 mg = 1 cap(s), Oral, BID Vitamin D3 5000 intl units oral tablet 125 mcg = 1 tab(s) Problem list: All Problems History of recurrent UTI (urinary tract infection) / SNOMED CT 8283159827 / Confirmed Hypertension / SNOMED CT 0834452244 / Confirmed Hyperlipidemia / SNOMED CT 35644449 / Confirmed Type 2 diabetes mellitus without complications / SNOMED CT 496805739 / Confirmed Sleep apnea / SNOMED CT 034037753 / Confirmed Glucosuria / SNOMED CT 88501114 / Confirmed Weak urine stream / SNOMED CT 588975850 / Confirmed Foul smelling urine / SNOMED CT 5352200096 / Confirmed H/O: stroke / SNOMED CT 4070750088 / Confirmed Histories Past Medical History: Active History of recurrent UTI (urinary tract infection) (5627265466) Hypertension (2582918194) Hyperlipidemia (11547047) Type 2 diabetes mellitus without complications (331009837) Sleep apnea (698536251) Family History: Hypertension Mother Arthritis Mother Procedure history: History of hernia repair (2918491043). Urethral dilatation (9680848973). Procedure on knee (196368161). Social History Social & Psychosocial Habits Alcohol 07/29/2020 Risk Assessment: Low Risk Tobacco 08/14/2020 Tobacco Use: Former smoker, quit more . Objective He is resting comfortably and in no acute distress. Abdomen is soft and nontender. No masses are palpable. Penis is a normal phallus. Scrotum reveals 2 normal testicles. Impression and Plan Impression: #1. This gentleman has partially treated urinary tract infection. He needs more antibiotics. 2. He has recurrent urethral strictures. These need to get dilated. 3. He has architecturally rather severe bladder damage. Apparently, he would always hold his urine in for many hours during the day over several decades. Plan: #1. He is starting on Cipro 500 twice daily for 2 more weeks. 2. He will continue Flomax. 3. We are going to get him set up for cystoscopy and urethral dilation with Lowe sounds under anesthesia. Normal [facility] Comment on above: Result Comment: Elec tronically Signed By: ASHKAN ANGELES, Juventino Rai.br\Date and Time Signed: 08/16/22 12:21 EDT Urine Cytology ([facility])on Method of Extraction Cystoscopy Normal [facility] Comment on above: Performed By: #### 1 [id number] ####[facility] [address] Number of Jars 1 Invalid Interpretation Code [facility] Comment on above: Performed By: #### 1 [id number] ####[facility] [address] [place] [address] Specimen Cystoscopy Normal [facility] Comment on above: Performed By: #### 1 [id number] ####[facility] [address] [place] [address] Type of Service Technical Only Normal [facility] Comment on above: Performed By: #### 1 [id number] ####[facility] [address] [place] [address] Consultation Noteon 08-11-20 Consultation Note [id number]#1.00CD:127 [facility] Lab Reportson 08-11-2022 Lab Reports [id number]#1.00CD:127 [facility] Patient Correspondenceon Patient Correspondence [id number]#1.00CD:127 [facility] Pre-Certification Formon Pre-Certification Form [id number]#1.00CD:127 [facility] Pre-Certification Formon Pre-Certification Form [id number]#1.00CD:127 [facility] Pre-Certification Form [id number]#1.00CD:127 [facility] Lab Reportson 08-04-2022 Lab Reports [id number]:127 [facility] ED Note-Physicianon 07-17-20 ED Note-Physician [id number]#1.00CD:127 [facility] RAD - CT Reporton 07-17-2022 RAD - CT Report [id number]#1.00CD:127 [facility] Ambulatory Visit Summaryon 0 07-13-2022 Ambulatory Visit Summary JUAN ABREU :1960 Visit Date:07/13/2022 Ambulatory Visit Instructions Your Diagnosis Bladder wall thickening BPH with urinary obstruction Prostatitis Incomplete bladder emptying Other obstructive and reflux uropathy Tests Performed Urnls Dip Stick Auto w/o Microscopy POC 70873 Your Care Team Attending Physician - Juventino LEE MD Primary Care Physician - GINNY HUTCHISON CNP This Is Your Medications List doxycycline (doxycycline hyclate 100 mg Cap) tamsulosin (tamsulosin 0.4 mg Cap) Contact prescribing physician if questions or concerns acetaminophen (Pain Relief Extra Strength) atorvastatin (atorvastatin 40 mg Tab) cetirizine (cetirizine 10 mg oral capsule) cholecalciferol (Vitamin D3 5000 intl units oral tablet) hydrochlorothiazide (hydrochlorothiazide 12.5 mg Cap) lisinopril (lisinopril 20 mg Tab) losartan (losartan 25 mg Tab) metformin (metformin 500 mg Tab) saw palmjose sitagliptin (Januvia 100 mg Tab) Procedures Performed History of hernia repair, Procedure on knee, Urethral dilatation. Discharge Vitals Height 166 cm Height 166.0 cm Weight 109.4 kg Weight 109.4 kg BMI 39.7 What to do next You Need to Schedule the Following Appointments Follow Up with ASHKAN ANGELES, Juventino Sims, URL When: Where: [facility] [address], [place] [address]- Medications What How Much When Instructions New doxycycline (doxycycline hyclate 100 mg Cap) 1 Capsules By Mouth 2 times a day Refills: 1 Pickup at [facility]/pharmacy #[id number] New tamsulosin (tamsulosin 0.4 mg Cap) 1 Capsules By Mouth 2 times a day Refills: 11 Pickup at [facility]/pharmacy #[id number] Unchanged acetaminophen (Pain Relief Extra Strength) 500 Milligram By Mouth Every 6 hours Contact prescribing physician if questions or concerns Unchanged atorvastatin (atorvastatin 40 mg Tab) 1 Tablets Every day Contact prescribing physician if questions or concerns Unchanged cetirizine (cetirizine 10 mg oral capsule) 1 Capsules By Mouth Every day as needed for for allergy symptoms Contact prescribing physician if questions or concerns Unchanged cholecalciferol (Vitamin D3 5000 intl units oral tablet) 1 Tablets Contact prescribing physician if questions or concerns Unchanged hydrochlorothiazide (hydrochlorothiazide 12.5 mg Cap) 1 Capsules By Mouth Every day Contact prescribing physician if questions or concerns Unchanged lisinopril (lisinopril 20 mg Tab) 1 Tablets By Mouth Every day Contact prescribing physician if questions or concerns Unchanged losartan (losartan 25 mg Tab) 1 Tablets Every day Contact prescribing physician if questions or concerns Unchanged metformin (metformin 500 mg Tab) 1 Tablets By Mouth 2 times a day Contact prescribing physician if questions or concerns Unchanged saw palmetto By Mouth Every day Contact prescribing physician if questions or concerns Unchanged sitagliptin (Januvia 100 mg Tab) 1 Tablets Contact prescribing physician if questions or concerns Pharmacy Information [facility]/pharmacy #[id number]: [address] [place], [place] [id number] [phone] Test Results Urnls Dip Stick Auto w/o Microscopy POC 47263 (07/13/2022) Bilirubin Urine Dipstick - Negative Blood Urine Dipstick - Trace-intact Glucose Urine Dipstick - Negative Ketones Urine Dipstick - Negative Leukocytes Urine Dipstick - 3+ Large Nitrite Urine Dipstick - Positive Protein Urine Dipstick - Negative Specific [place] Urine Dipstick - 1.015 Urine Appearance Urine Dipstick - Clear Urine Color Urine Dipstick - Yellow Urobilinogen Urine Dipstick - Normal 0.2-1 EU/dl pH Urine Dipstick - 5.5 Allergies No Known Allergies Problems Ongoing - Any problem that you are currently receiving treatment for. Foul smelling urine Glucosuria H/O: stroke History of recurrent UTI (urinary tract infection) Hyperlipidemia Hypertension Sleep apnea Type 2 diabetes mellitus without complications Weak urine stream Education [employer] Prostatitis Prostatitis is swelling or inflammation of the prostate gland. The prostate is a walnut-sized gland that is involved in the production of semen. It is located below a man's bladder, in front of the rectum. There are four types of prostatitis: ? Chronic nonbacterial prostatitis. This is the most common type of prostatitis. It may be associated with a viral infection or autoimmune disorder. ? Acute bacterial prostatitis. This is the least common type of prostatitis. It starts quickly and is usually associated with a bladder infection, high fever, and shaking chills. It can occur at any age. ? Chronic bacterial prostatitis. This type usually results from acute bacterial prostatitis that happens repeatedly (is recurrent) or has not been treated properly. It can occur in men of any age but is most common among middle-aged men whose prostate has begun to get larger. The symptoms are not as severe as symptoms caused b (more content not included)... Normal [facility] Patient Educationon 07-13-20 Patient Education Infectious Disease Prostatitis Prostatitis is swelling or inflammation of the prostate gland. The prostate is a walnut-sized gland that is involved in the production of semen. It is located below a man's bladder, in front of the rectum. There are four types of prostatitis: ? Chronic nonbacterial prostatitis. This is the most common type of prostatitis. It may be associated with a viral infection or autoimmune disorder. ? Acute bacterial prostatitis. This is the least common type of prostatitis. It starts quickly and is usually associated with a bladder infection, high fever, and shaking chills. It can occur at any age. ? Chronic bacterial prostatitis. This type usually results from acute bacterial prostatitis that happens repeatedly (is recurrent) or has not been treated properly. It can occur in men of any age but is most common among middle-aged men whose prostate has begun to get larger. The symptoms are not as severe as symptoms caused by acute bacterial prostatitis. ? Prostatodynia or chronic pelvic pain syndrome (CPPS). This type is also called pelvic floor disorder. It is associated with increased muscular tone in the pelvis surrounding the prostate. What are the causes? Bacterial prostatitis is caused by infection from bacteria. Chronic nonbacterial prostatitis may be caused by: ? Urinary tract infections (UTIs). ? Nerve damage. ? A response by the body?s disease-fighting system (autoimmune response). ? Chemicals in the urine. The causes of the other types of prostatitis are usually not known. What are the signs or symptoms? Symptoms of this condition vary depending upon the type of prostatitis. If you have acute bacterial prostatitis, you may experience: ? Urinary symptoms, such as: ? Painful urination. ? Burning during urination. ? Frequent and sudden urges to urinate. ? Inability to start urinating. ? A weak or interrupted stream of urine. ? Vomiting. ? Nausea. ? Fever. ? Chills. ? Inability to empty the bladder completely. ? Pain in the: ? Muscles or joints. ? Lower back. ? Lower abdomen. If you have any of the other types of prostatitis, you may experience: ? Urinary symptoms, such as: ? Sudden urges to urinate. ? Frequent urination. ? Difficulty starting urination. ? Weak urine stream. ? Dribbling after urination. ? Discharge from the urethra. The urethra is a tube that opens at the end of the penis. ? Pain in the: ? Testicles. ? Penis or tip of the penis. ? Rectum. ? Area in front of the rectum and below the scrotum (perineum). ? Problems with sexual function. ? Painful ejaculation. ? Bloody semen. How is this diagnosed? This condition may be diagnosed based on: ? A physical and medical exam. ? Your symptoms. ? A urine test to check for bacteria. ? An exam in which a health care provider uses a finger to feel the prostate (digital rectal exam). ? A test of a sample of semen. ? Blood tests. ? Ultrasound. ? Removal of prostate tissue to be examined under a microscope (biopsy). ? Tests to check how your body handles urine (urodynamic tests). ? A test to look inside your bladder or urethra (cystoscopy). How is this treated? Treatment for this condition depends on the type of prostatitis. Treatment may involve: ? Medicines to relieve pain or inflammation. ? Medicines to help relax your muscles. ? Physical therapy. ? Heat therapy. ? Techniques to help you control certain body functions (biofeedback). ? Relaxation exercises. ? Antibiotic medicine, if your condition is caused by bacteria. ? Warm water baths (sitz baths). Sitz baths help with relaxing your pelvic floor muscles, which helps to relieve pressure on the prostate. Follow these instructions at home: ? Take wiuo-vmj-ovxqijd and prescription medicines only as told by your health care provider. ? If you were prescribed an antibiotic, take it as told by your health care provider. Do not stop taking the antibiotic even if you start to feel better. ? If physical therapy, biofeedback, or relaxation exercises were prescribed, do exercises as instructed. ? Take sitz baths as directed by your health care provider. For a sitz bath, sit in warm water that is deep enough to cover your hips and buttocks. ? Keep all follow-up visits as told by your health care provider. This is important. Contact a health care provider if: ? Your symptoms get worse. ? You have a fever. Get help right away if: ? You have chills. ? You feel nauseous. ? You vomit. ? You feel light-headed or feel like you are going to faint. ? You are unable to urinate. ? You have blood or blood clots in your urine. This information is not intended to replace advice given to you by your health care provider. Make sure you discuss any questions you have with your health care provider. Document Released: 10/20/2001 Document Revised: 01/05/2019 Docum (more content not included)... Normal [facility] Urology Office/Clinic Noteon 07-13-2022 Urology Office/Clinic Note Chief Complaint Review CT HPI Staff This is a 62 year old male here to review CT done 05/19/22. Pt. was in the [facility] on 05/19/22 due to stroke like symptoms, while in the ER Pt. had CT done. Pt. seen Dr. Begum in the past. Previous DX: foul smelling urine, weak stream and H/O UTI. Pain with urination:No Blood in urine:UA shows trace today Incomplete bladder emptying:No Frequency:Pt. states he will urinate 3x's a day. Pt. states he does not drink enough Urgency:No Nocturia:No Hesitancy:No Urination requires straining:No Stream:Pt. states slower stream Stream starts and stops:yes Pt. states if he does not drink enough water Post-void dribbling:No Leaking before getting to the restroom:No Urinary incontinence without sensory awareness:No Temporarily unable to restrain urination with body movement:No Flank/Back pain:Occasionally Abdominal pain:No History of Present Illness Tests Reviewed: Reviewed UA. I have reviewed and verified the staff HPI to be accurate for this encounter. I have reviewed the previous health record information and history for this patient from Dr. Lee There have been no associated fever, chills, flank pain, or blood in the urine. Denies any urinary infections since last encounter. Review of Systems ROS - Provider Constitutional: denies weight loss, denies hot flashes. Eyes: denies eye problems. Gastrointestinal: denies nausea, denies vomiting. Cardiovascular: denies chest pain or angina. Integumentary: no dryness Musculoskeletal: denies musculoskeletal symptoms. ENMT: denies otolaryngeal symptoms. Respiratory: no shortness of breath. Heme/Lymph: denies easy bleeding tendency, denies easy bruising tendency. Psychiatric: no confusion, no anxiety. Genitourinary: denies dysuria, denies hematuria, denies discharge, denies urinary frequency, denies urinary hesitancy, denies nocturia, denies incontinence, denies genital sores, denies decreased libido, and denies erectile dysfunction. Physical Exam Vitals & Measurements HT: 166 cm HT: 166.0 cm WT: 109.4 kg WT: 109.4 kg BMI: 39.7 General Appearance: alert, no distress, well nourished, well developed male. Genitourinary: normal scrotum, normal testes, normal urethra, normal epididymis, normal vas deferens/spermatic cord. Flank Pain: none. Bladder: nonpalpable. Assessment/Plan 1. Bladder wall thickening (N32.89: Other specified disorders of bladder) CT done 05/19/22 showed 13mm focus of wall thickening along the lateral wall of the bladder to the left of midline which is of uncertain etiology. The risks and benefits for cystoscopy have been discussed. The risks include bleeding, infection, and irritation of the bladder and urinary channel, among others. The patient, after being informed of procedural details and after questions have been answered, wishes to proceed. Full informed consent has been obtained. Will order Local anesthesia. 2. BPH with urinary obstruction (N40.1: Benign prostatic hyperplasia with lower urinary tract symptoms) Pt currently not on any BPH medications at this time. Pt stated when he drinks plenty of water his stream is good, but he does strain to urinate. Discussed with pt starting Flomax 0.4mg BID, pt agrees with starting this. Discussed the medication side effects, and the patient will monitor closely for these, as well as for symptom improvement. If severe side effects occur, the medication should be stopped and the office notified. 3. Prostatitis (N41.9: Inflammatory disease of prostate, unspecified) UA today shows trace-intact blood, and large CRICKET Pt stated when he gets an infection, his urine will have a foul smell. Stated he has been on ABX in the past, which has helped. Stated he started having infections when he was 20, and at that time he could not urinate, and had to get a cath. Pt will be started on Doxycycline 100mg BID. Discussed the medication side effects, and the patient will monitor closely for these, as well as for symptom improvement. If severe side effects occur, the medication should be stopped and the office notified. 4. Incomplete bladder emptying (R33.9: Retention of urine, unspecified) Explained to pt that with him having diabetes, it causes you to loose feeling in your bladder, which will make you think that you completely emptied your bladder, when you actually didn't. Discussed with pt having a bladder functioning test to see how well his bladder is functioning, and pt agrees with this plan. Other obstructive and reflux uropathy (N13.8: Other obstructive and reflux uropathy) Follow-up With When Contact Information Juventino LEE MD, URL [facility] [address], [place] [address]- Additional Instructions: Patient Education Prostatitis I, Mimi Flores, personally scribed for Dr. Lee on 07/13/2022 11:02:22. . Documentation recorded by the kushalibMimi balderas, esequiel (more content not included)... Normal [facility] Comment on above: Result Comment: Elec tronically Signed By: Juventino LEE MD\.br\Date and Time Signed: 07/13/22 11:05 EDT\.br\Electronically Co-Signed By: Mimi Flores\.br\Date and Time Co-Signed: 07/13/22 11:02 EDT Basophils Auto (Bld) [#/Vol] Ordered By: Nydia Marcelino on 05-21-2022 Basophils (Bld) [#/Vol] 0.0 10*3/uL 0.0-0.2 [facility] Basophils/100 WBC Auto (Bld) Ordered By: Nydia Marcelino on 05-21-2022 Basophils/100 WBC (Bld) 0.4 % [facility] Blood hemoglobin measurement (mass/volume)Ordered By: Nydia Marcelino on 05-21-2022 Hemoglobin (Bld) [Mass/Vol] 15.3 g/dL 13.0-17.0 [facility] Blood leukocytes automated c ount (number/volume)Ordered By: Nydia Marcelino on 05-21-2022 WBC (Bld) [#/Vol] 6.6 10*3/uL 4.5-11.0 [facility] Creatinine and Glomerular fi ltration rate.predicted panel (S/P/Bld)Ordered By: Nydia Marcelino on 05-21-2022 Creatinine [Mass/Vol] 1.07 mg/dL 0.64-1.27 [facility] Eosinophils Auto (Bld) [#/Vo l]Ordered By: Nydia Marcelino on 05-21-2022 Eosinophils (Bld) [#/Vol] 0.1 10*3/uL 0.0-0.45 [facility] Eosinophils/100 WBC Auto (Bl d)Ordered By: Nydia Marcelino on 05-21-2022 Eosinophils/100 WBC (Bld) 2.3 % [facility] Erythrocyte distribution wid th Auto (RBC) [Ratio]Ordered By: Nydia Marcelino on 05-21-2022 Erythrocyte distribution width (RBC) [Ratio] 13.9 % 12.0-14.8 [facility] Estimated glomerular filtrat ion rate (GFR) non- AmericanOrdered By: Nydia Marcelino on 05-21-2022 GFR/1.73 sq M.predicted among non-blacks MDRD (S/P/Bld) [Vol rate/Area] > 60 mL/Min [facility] Glucose Glucometer (BldC) [M ass/Vol]Ordered By: Nydia Marcelino on 05-21-2022 Glucose [Mass/Vol] 116 mg/dL [facility] Comment on above: Random Glucose Refer ence Range is dependent on time and content of last meal. Glucose of more than 200 mg/dL in a nonstressed, ambulatory subject supports the diagnosis of Diabetes Mellitus. Hematocrit Auto (Bld) [Volum e fraction]Ordered By: Nydia Marcelino on 05-21-2022 Hematocrit (Bld) [Volume fraction] 46.7 % 38.8-50.0 [facility] - Hematology and Cell countsOrdered By: Nydia Marcelino on 05-21-2022 Nucleated RBC/100 WBC (Bld) [Ratio] 0.1 % 0-0.5 [facility] Lymphocytes Auto (Bld) [#/Vo l]Ordered By: Nydia Marcelino on 05-21-2022 Lymphocytes (Bld) [#/Vol] 2.1 10*3/uL 1.00-4.8 [facility] Lymphocytes/100 WBC Auto (Bl d)Ordered By: Nydia Marcelino on 05-21-2022 Lymphocytes/100 WBC (Bld) 32.3 % [facility] MCH Auto (RBC) [Entitic mass ]Ordered By: Nydia Khourye on 05-21-2022 MCH (RBC) [Entitic mass] 26.9 pg 27.5-35.2 [facility] MCHC Auto (RBC) [Mass/Vol]Or dered By: Nydia Khourye on 05-21-2022 MCHC (RBC) [Mass/Vol] 32.8 g/dL 32.5-35.6 [facility] MCV Auto (RBC) [Entitic vol] Ordered By: Nydia Marcelino on 05-21-2022 MCV (RBC) [Entitic vol] 82.1 fL 83.5-101 [facility] Monocytes Auto (Bld) [#/Vol] Ordered By: Nydia Marcelino on 05-21-2022 Monocytes (Bld) [#/Vol] 0.9 10*3/uL 0.0-0.8 [facility] Monocytes/100 WBC Auto (Bld) Ordered By: Nydia Marcelino on 05-21-2022 Monocytes/100 WBC (Bld) 13.3 % [facility] Neutrophils Auto (Bld) [#/Vo l]Ordered By: Nydia Marcelino on 05-21-2022 Neutrophils (Bld) [#/Vol] 3.4 10*3/uL 1.8-7.7 [facility] Neutrophils/100 WBC Auto (Bl d)Ordered By: Nydia Marcelino on 05-21-2022 Neutrophils/100 WBC (Bld) 51.7 % [facility] No Panel InformationOrdered By: Nydia Marcelino on 05-21-2022 Estimated GFR () > 60 mL/Min [facility] Comment on above: GFR estimated refere nce range: According to KDOQI guidelines, <60 ml/min/1.73m2 is sufficient to diagnose a patient with chronic kidney disease. Pharmacy Creatinine Clearance (Chem 85.31 [facility] Platelet mean volume Auto (B ld) [Entitic vol]Ordered By: Nydia Marcelino on 05-21-2022 Platelet mean volume (Bld) [Entitic vol] 7.9 fL 6.6-10.1 [facility] Platelets Auto (Bld) [#/Vol] Ordered By: Nydia Marcelino on 05-21-2022 Platelets (Bld) [#/Vol] 304 10*3/uL 150-450 [facility] RBC Auto (Bld) [#/Vol]Ordere d By: Nydia Marcelino on 05-21-2022 RBC (Bld) [#/Vol] 5.69 10*6/uL 3.90-5.60 [facility] Serum or plasma calcium jeremiah urement (mass/volume)Ordered By: Nydia Marcelino on 05-21-2022 Calcium [Mass/Vol] 9.0 mg/dL 8.2-10.2 [facility] Serum or plasma chloride daniel surement (moles/volume)Ordered By: Nydia Marcelino on 05-21-2022 Chloride [Moles/Vol] 107 mmol/L 95-114 [facility] Serum or plasma glucose jeremiah urement (mass/volume)Ordered By: Nydia Marcelino on 05-21-2022 Glucose [Mass/Vol] 125 mg/dL 70-100 [facility] Comment on above: ADA recommended refe rence range Random Glucose Reference Range is dependent on time and content of last meal. Glucose of more than 200 mg/dL in a nonstressed, ambulatory subject supports the diagnosis of Diabetes Mellitus. Serum or plasma potassium me asurement (moles/volume)Ordered By: Nydia Marcelino on 05-21-2022 Potassium [Moles/Vol] 4.2 mmol/L 3.5-5.1 [facility] Serum or plasma sodium measu rement (moles/volume)Ordered By: Nydia Marcelino on 05-21-2022 Sodium [Moles/Vol] 138 mmol/L 136-146 [facility] Serum or plasma total carbon dioxide measurement (moles/volume)Ordered By: Nydia Marcelino on 05-21-2022 CO2 [Moles/Vol] 25.2 mmol/L 22.0-30.0 [facility] Serum or plasma urea nitroge n measurement (mass/volume)Ordered By: Nydia Marcelino on 05-21-2022 Urea nitrogen [Mass/Vol] 23 mg/dL 9-23 [facility] No Panel InformationOrdered By: Nydia Marcelino on 05-20-2022 Bedside Glucose Comment Glu2: cleaned meter [facility] Activated partial thrombopla stin time (aPTT) in platelet poor plasma by coagulation aOrdered By: Jesse Sampson on 05-19-2022 aPTT Coag (PPP) [Time] 32.6 s 25.1-36.5 [facility] Albumin [Mass/volume] in Ser um or PlasmaOrdered By: Jesse Sampson on 05-19-2022 Albumin [Mass/Vol] 4.2 g/dL 3.2-5.5 [facility] Basophils Auto (Bld) [#/Vol] Ordered By: Jesse Sampson on 05-19-2022 Basophils (Bld) [#/Vol] 0.0 10*3/uL 0.0-0.2 [facility] Basophils/100 WBC Auto (Bld) Ordered By: Jesse Sampson on 05-19-2022 Basophils/100 WBC (Bld) 0.5 % [facility] Blood hemoglobin measurement (mass/volume)Ordered By: Jesse Sampson on 05-19-2022 Hemoglobin (Bld) [Mass/Vol] 17.1 g/dL 13.0-17.0 [facility] Blood leukocytes automated c ount (number/volume)Ordered By: Jesse Sampson on 05-19-2022 WBC (Bld) [#/Vol] 9.3 10*3/uL 4.5-11.0 [facility] COVID-19 Positive/NegativeOr dered By: Jesse Sampson on 05-19-2022 SARS-CoV-2 (COVID-19) N gene DHARA+probe Ql (Resp) Negative Negative [facility] Comment on above: Testing for SARS-CoV -2 by RT-PCR This test was developed and its performance characteristics determined by [employer] ([employer]) and validated at the [facility]. This test has not been FDA cleared or approved. This test has been authorized by FDA under an Emergency Use Authorization (EUA). This test has been validated in accordance with the FDA's Guidance Document (Policy for Diagnostics Testing in Laboratories Certified to Perform High Complexity Testing under CLIA prior to Emergency Use Authorization for Coronavirus Disease-2019 during the Public Health Emergency) issued on February 06, 2020. This test is only authorized for the duration of time the declaration that circumstances exist justifying the authorization of the emergency use of in vitro diagnostic tests for detection of SARS-CoV-2 virus and/or diagnosis of COVID-19 infection under section 564(b)(1) of the Act, 21 U.S.C. 360bbb-3(b)(1), unless the authorization is terminated or revoked sooner. COVID-19 SOFIAOrdered By: Yvon Sampson on 05-19-2022 SARS-CoV+SARS-CoV-2 (COVID-19) Ag IA.rapid Ql (Resp) Negative Negative [facility] Comment on above: This is a duplicate Alesha SARS Antigen (PRINCESS) result to be used for statistical tracking purpose only. Creatine kinase [Enzymatic a ctivity/volume] in Serum or PlasmaOrdered By: Jesse Sampson on 05-19-2022 CK [Catalytic activity/Vol] 80 U/L 22-269 [facility] Creatinine (Bld) [Mass/Vol]O rdered By: Jesse Sampson on 05-19-2022 Creatinine [Mass/Vol] 2.2 mg/dL 0.6-1.3 [facility] Comment on above: ER/ESD physician is notified/shown all ISTAT results. Critical values may be confirmed by laboratory testing if deemed necessary by ER attending doctor. Creatinine and Glomerular fi ltration rate.predicted panel (S/P/Bld)Ordered By: Jesse Sampson on 05-19-2022 Creatinine [Mass/Vol] 2.09 mg/dL 0.64-1.27 [facility] Eosinophils Auto (Bld) [#/Vo l]Ordered By: Jesse Sampson on 05-19-2022 Eosinophils (Bld) [#/Vol] 0.2 10*3/uL 0.0-0.45 [facility] Eosinophils/100 WBC Auto (Bl d)Ordered By: Jesse Sampson on 05-19-2022 Eosinophils/100 WBC (Bld) 2.2 % [facility] Erythrocyte distribution wid th Auto (RBC) [Ratio]Ordered By: Jesse Sampson on 05-19-2022 Erythrocyte distribution width (RBC) [Ratio] 14.1 % 12.0-14.8 [facility] Estimated glomerular filtrat ion rate (GFR) non- AmericanOrdered By: Jesse Sampson on 05-19-2022 GFR/1.73 sq M.predicted among non-blacks MDRD (S/P/Bld) [Vol rate/Area] 32 mL/Min [facility] Globulin Calc (S) [Mass/Vol] Ordered By: Jesse Sampson on 05-19-2022 Globulin (S) [Mass/Vol] 3.0 g/dL [facility] Glucose Glucometer (BldC) [M ass/Vol]Ordered By: Jesse Sampson on 05-19-2022 Glucose [Mass/Vol] 156 mg/dL [facility] Comment on above: Random Glucose Refer ence Range is dependent on time and content of last meal. Glucose of more than 200 mg/dL in a nonstressed, ambulatory subject supports the diagnosis of Diabetes Mellitus. Hematocrit Auto (Bld) [Volum e fraction]Ordered By: Jesse Sampson on 05-19-2022 Hematocrit (Bld) [Volume fraction] 50.9 % 38.8-50.0 [facility] - Chemistry and C hemistry - challengeOrdered By: Nydia Marcelino on 05-19-2022 Magnesium [Mass/Vol] 2.3 mg/dL 1.6-2.6 [facility] - Chemistry and C hemistry - challengeOrdered By: Jesse Sampson on 05-19-2022 Natriuretic peptide B (Bld) [Mass/Vol] 10.0 pg/mL 5-100 [facility] - CoagulationOrde red By: Jesse Sampson on 05-19-2022 PT Coag (PPP) [Time] 11.6 s 9.0-12.9 [facility] - Hematology and Cell countsOrdered By: Jesse Sampson on 05-19-2022 Nucleated RBC/100 WBC (Bld) [Ratio] 0.1 % 0-0.5 [facility] Lymphocytes Auto (Bld) [#/Vo l]Ordered By: Jesse Sampson on 05-19-2022 Lymphocytes (Bld) [#/Vol] 2.2 10*3/uL 1.00-4.8 [facility] Lymphocytes/100 WBC Auto (Bl d)Ordered By: Jesse Sampson on 05-19-2022 Lymphocytes/100 WBC (Bld) 23.7 % [facility] MCH Auto (RBC) [Entitic mass ]Ordered By: Jesse Sampson on 05-19-2022 MCH (RBC) [Entitic mass] 27.0 pg 27.5-35.2 [facility] MCHC Auto (RBC) [Mass/Vol]Or dered By: Jesse Sampson on 05-19-2022 MCHC (RBC) [Mass/Vol] 33.6 g/dL 32.5-35.6 [facility] MCV Auto (RBC) [Entitic vol] Ordered By: Jesse Sampson on 05-19-2022 MCV (RBC) [Entitic vol] 80.5 fL 83.5-101 [facility] Monocytes Auto (Bld) [#/Vol] Ordered By: Jesse Sampson on 05-19-2022 Monocytes (Bld) [#/Vol] 0.9 10*3/uL 0.0-0.8 [facility] Monocytes/100 WBC Auto (Bld) Ordered By: Jesse Sampson on 05-19-2022 Monocytes/100 WBC (Bld) 9.1 % [facility] Neutrophils Auto (Bld) [#/Vo l]Ordered By: Jesse Sampson on 05-19-2022 Neutrophils (Bld) [#/Vol] 6.0 10*3/uL 1.8-7.7 [facility] Neutrophils/100 WBC Auto (Bl d)Ordered By: Jesse Sampson on 05-19-2022 Neutrophils/100 WBC (Bld) 64.5 % [facility] No Panel InformationOrdered By: Jesse Sampson on 05-19-2022 SARS Antigen (LFIA) [facility] Estimated GFR () 39 mL/Min [facility] Comment on above: GFR estimated refere nce range: According to KDOQI guidelines, <60 ml/min/1.73m2 is sufficient to diagnose a patient with chronic kidney disease. Pharmacy Creatinine Clearance (Chem 43.47 [facility] POC Estimated GFR 37 [facility] Comment on above: GFR estimated refere nce range: According to KDOQI guidelines, <60 ml/min/1.73m2 is sufficient to diagnose a patient with chronic kidney disease. POC Estimated GFR Non- Amer 30 [facility] Bedside Glucose Comment Glu2: cleaned meter [facility] Platelet mean volume Auto (B ld) [Entitic vol]Ordered By: Jesse Sampson on 05-19-2022 Platelet mean volume (Bld) [Entitic vol] 7.4 fL 6.6-10.1 [facility] Platelet poor plasma interna tional normalized ratio (INR) by coagulation assay (relatOrdered By: Jesse Sampson on 05-19-2022 INR Coag (PPP) [Relative time] 1.0 {INR} [facility] Comment on above: INR Therapeutic Rang e A) Pre- and Peroperative OAT started two weeks before surgery. NOT HIP SURGERY: 1.5 - 2.5 HIP SURGERY: 2 - 3 B) Primary and secondary prevention of venous THROMBOSIS: 2 - 3 C) Active venous thrombosis, pulmonary embolism and prevention of recurrent venous thrombosis: 2 - 3 D) Prevention of arterial thromboembolism including patients with mechanical heart valves: 3 - 4.5 Platelets Auto (Bld) [#/Vol] Ordered By: Jesse Sampson on 05-19-2022 Platelets (Bld) [#/Vol] 348 10*3/uL 150-450 [facility] Protein [Mass/volume] in Ser um or PlasmaOrdered By: Jesse Sampson on 05-19-2022 Protein [Mass/Vol] 7.2 g/dL 6.1-7.9 [facility] RBC Auto (Bld) [#/Vol]Ordere d By: Jesse Sampson on 05-19-2022 RBC (Bld) [#/Vol] 6.32 10*6/uL 3.90-5.60 [facility] Serum or plasma alanine ramos otransferase measurement without P-5'-P (enzymatic activiOrdered By: Jesse Sampson on 05-19-2022 ALT No additional P-5'-P [Catalytic activity/Vol] 21 U/L 10-60 [facility] Serum or plasma albumin/glob ulin mass ratioOrdered By: Jesse Sampson on 05-19-2022 Albumin/Globulin [Mass ratio] 1.4 {ratio} [facility] Serum or plasma alkaline ann sphatase measurement (enzymatic activity/volume)Ordered By: Jesse Sampson on 05-19-2022 ALP [Catalytic activity/Vol] 53 U/L 32-92 [facility] Serum or plasma aspartate am inotransferase measurement (enzymatic activity/volume)Ordered By: Jesse Sampson on 05-19-2022 AST [Catalytic activity/Vol] 17 U/L 10-42 [facility] Serum or plasma calcium jeremiah urement (mass/volume)Ordered By: Jesse Sampson on 05-19-2022 Calcium [Mass/Vol] 10.1 mg/dL 8.2-10.2 [facility] Serum or plasma chloride daniel surement (moles/volume)Ordered By: Jesse Sampson on 05-19-2022 Chloride [Moles/Vol] 99 mmol/L 95-114 [facility] Serum or plasma creatine kin ase MB (CKMB)/total creatine kinase (CK) ratio by calculaOrdered By: Jesse Sampson on 05-19-2022 CK.MB Calc [Catalytic fraction] 2.8 % 0.00-2.50 [facility] Serum or plasma creatine kin ase MB measurement (mass/volume)Ordered By: Jesse Sampson on 05-19-2022 CK.MB [Mass/Vol] 2.3 ng/mL 0.6-6.3 [facility] Serum or plasma glucose jeremiah urement (mass/volume)Ordered By: Jesse Sampson on 05-19-2022 Glucose [Mass/Vol] 156 mg/dL 70-100 [facility] Comment on above: ADA recommended refe rence range Random Glucose Reference Range is dependent on time and content of last meal. Glucose of more than 200 mg/dL in a nonstressed, ambulatory subject supports the diagnosis of Diabetes Mellitus. Serum or plasma potassium me asurement (moles/volume)Ordered By: Jesse Sampson on 05-19-2022 Potassium [Moles/Vol] 4.2 mmol/L 3.5-5.1 [facility] Serum or plasma sodium measu rement (moles/volume)Ordered By: Jesse Sampson on 05-19-2022 Sodium [Moles/Vol] 133 mmol/L 136-146 [facility] Serum or plasma total biliru bin measurement (mass/volume)Ordered By: Jesse Sampson on 05-19-2022 Bilirubin [Mass/Vol] 1.2 mg/dL 0.3-1.2 [facility] Serum or plasma total carbon dioxide measurement (moles/volume)Ordered By: Jesse Sampson on 05-19-2022 CO2 [Moles/Vol] 20.8 mmol/L 22.0-30.0 [facility] Serum or plasma urea nitroge n measurement (mass/volume)Ordered By: Jesse Sampson on 05-19-2022 Urea nitrogen [Mass/Vol] 49 mg/dL 9-23 [facility] Troponin I.cardiac [Mass/vol ume] in Serum or Plasma by High sensitivity methodOrdered By: Jesse Sampson on 05-19-2022 Troponin I.cardiac High sensitivity method [Mass/Vol] 5 pg/mL 0-20 [facility] Basophils Auto (Bld) [#/Vol] Ordered By: Ronen Gonzales on 05-17-2022 Basophils (Bld) [#/Vol] 0.0 10*3/uL 0.0-0.2 [facility] Basophils/100 WBC Auto (Bld) Ordered By: Ronen Gonzales on 05-17-2022 Basophils/100 WBC (Bld) 0.5 % [facility] Blood hemoglobin measurement (mass/volume)Ordered By: Ronen Gonzales on 05-17-2022 Hemoglobin (Bld) [Mass/Vol] 16.3 g/dL 13.0-17.0 [facility] Blood leukocytes automated c ount (number/volume)Ordered By: Ronen Gonzales on 05-17-2022 WBC (Bld) [#/Vol] 8.5 10*3/uL 4.5-11.0 [facility] Cholesterol [Mass/volume] in Serum or PlasmaOrdered By: Ronen Gonzales on 05-17-2022 Cholesterol [Mass/Vol] 208 mg/dL 140-200 [facility] Comment on above: Chol less than 200 m g/dl low risk Chol 201-239 mg/dl borderline risk Chol 240 mg/dl and greater high risk Cholesterol in LDL Calc [Mas s/Vol]Ordered By: Ronen Gonzales on 05-17-2022 Cholesterol in LDL [Mass/Vol] 128 mg/dL 0-100 [facility] Comment on above: LDL ATP III CLASSIFI CATION LDL less than 100 mg/dL Optimal LDL 100-129 mg/dL Near or above optimal LDL 130-159 mg/dL Borderline high LDL 160-189 mg/dL High LDL greater than 189 mg/dL Very high Cholesterol in VLDL Calc [Ma ss/Vol]Ordered By: Ronen Gonzales on 05-17-2022 Cholesterol in VLDL [Mass/Vol] 42 mg/dL [facility] Creatinine and Glomerular fi ltration rate.predicted panel (S/P/Bld)Ordered By: Ronen Gonzales on 05-17-2022 Creatinine [Mass/Vol] 0.90 mg/dL 0.64-1.27 [facility] Eosinophils Auto (Bld) [#/Vo l]Ordered By: Ronen Gonzales on 05-17-2022 Eosinophils (Bld) [#/Vol] 0.4 10*3/uL 0.0-0.45 [facility] Eosinophils/100 WBC Auto (Bl d)Ordered By: Ronen Gonzales on 05-17-2022 Eosinophils/100 WBC (Bld) 4.3 % [facility] Erythrocyte distribution wid th Auto (RBC) [Ratio]Ordered By: Ronen Gonzales on 05-17-2022 Erythrocyte distribution width (RBC) [Ratio] 14.1 % 12.0-14.8 [facility] Estimated glomerular filtrat ion rate (GFR) non- AmericanOrdered By: Ronen Gonzales on 05-17-2022 GFR/1.73 sq M.predicted among non-blacks MDRD (S/P/Bld) [Vol rate/Area] > 60 mL/Min [facility] Glucose Glucometer (BldC) [M ass/Vol]Ordered By: Ronen Gonzales on 05-17-2022 Glucose [Mass/Vol] 132 mg/dL [facility] Comment on above: Random Glucose Refer ence Range is dependent on time and content of last meal. Glucose of more than 200 mg/dL in a nonstressed, ambulatory subject supports the diagnosis of Diabetes Mellitus. Hematocrit Auto (Bld) [Volum e fraction]Ordered By: Ronen Gonzales on 05-17-2022 Hematocrit (Bld) [Volume fraction] 49.1 % 38.8-50.0 [facility] - Hematology and Cell countsOrdered By: Ronen Gonzales on 05-17-2022 Nucleated RBC/100 WBC (Bld) [Ratio] 0.1 % 0-0.5 [facility] Lymphocytes Auto (Bld) [#/Vo l]Ordered By: Ronen Gonzales on 05-17-2022 Lymphocytes (Bld) [#/Vol] 2.0 10*3/uL 1.00-4.8 [facility] Lymphocytes/100 WBC Auto (Bl d)Ordered By: Ronen Gonzales on 05-17-2022 Lymphocytes/100 WBC (Bld) 23.5 % [facility] MCH Auto (RBC) [Entitic mass ]Ordered By: Ronen Gonzales on 05-17-2022 MCH (RBC) [Entitic mass] 26.9 pg 27.5-35.2 [facility] MCHC Auto (RBC) [Mass/Vol]Or dered By: Ronen Gonzales on 07-12-2022 MCHC (RBC) [Mass/Vol] 33.1 g/dL 32.5-35.6 [facility] MCV Auto (RBC) [Entitic vol] Ordered By: Ronen Gonzales on 05-17-2022 MCV (RBC) [Entitic vol] 81.1 fL 83.5-101 [facility] Monocytes Auto (Bld) [#/Vol] Ordered By: Ronen Gonzales on 05-17-2022 Monocytes (Bld) [#/Vol] 0.9 10*3/uL 0.0-0.8 [facility] Monocytes/100 WBC Auto (Bld) Ordered By: Ronen Gonzales on 05-17-2022 Monocytes/100 WBC (Bld) 10.7 % [facility] Neutrophils Auto (Bld) [#/Vo l]Ordered By: Ronen Gonzales on 05-17-2022 Neutrophils (Bld) [#/Vol] 5.2 10*3/uL 1.8-7.7 [facility] Neutrophils/100 WBC Auto (Bl d)Ordered By: Ronen Gonzales on 05-17-2022 Neutrophils/100 WBC (Bld) 61.0 % [facility] No Panel InformationOrdered By: Ronen Gonzales on 05-17-2022 Estimated GFR () > 60 mL/Min [facility] Comment on above: GFR estimated refere nce range: According to KDOQI guidelines, <60 ml/min/1.73m2 is sufficient to diagnose a patient with chronic kidney disease. Pharmacy Creatinine Clearance (Chem 100.03 [facility] Platelet mean volume Auto (B ld) [Entitic vol]Ordered By: Ronen Gonzales on 05-17-2022 Platelet mean volume (Bld) [Entitic vol] 7.4 fL 6.6-10.1 [facility] Platelets Auto (Bld) [#/Vol] Ordered By: Ronen Gonzales on 05-17-2022 Platelets (Bld) [#/Vol] 334 10*3/uL 150-450 [facility] RBC Auto (Bld) [#/Vol]Ordere d By: Ronen Gonzales on 05-17-2022 RBC (Bld) [#/Vol] 6.05 10*6/uL 3.90-5.60 [facility] Serum or plasma calcium jeremiah urement (mass/volume)Ordered By: Ronen Gonzales on 05-17-2022 Calcium [Mass/Vol] 9.7 mg/dL 8.2-10.2 [facility] Serum or plasma chloride daniel surement (moles/volume)Ordered By: Ronen Gonzales on 05-17-2022 Chloride [Moles/Vol] 101 mmol/L 95-114 [facility] Serum or plasma glucose jeremiah urement (mass/volume)Ordered By: Ronen Gonzales on 05-17-2022 Glucose [Mass/Vol] 137 mg/dL 70-100 [facility] Comment on above: ADA recommended refe rence range Random Glucose Reference Range is dependent on time and content of last meal. Glucose of more than 200 mg/dL in a nonstressed, ambulatory subject supports the diagnosis of Diabetes Mellitus. Serum or plasma high density lipoprotein (HDL) cholesterol measurementOrdered By: Ronen Gonzales on 05-17-2022 Cholesterol in HDL [Mass/Vol] 38 mg/dL 29-71 [facility] Comment on above: HDL CHOL ATP-III CLA SSIFICATION Cardiovascular Risk HDL > or equal to 60 mg/dL LOW HDL < 40 mg/dL HIGH Serum or plasma potassium me asurement (moles/volume)Ordered By: Ronen Gonzales on 05-17-2022 Potassium [Moles/Vol] 4.2 mmol/L 3.5-5.1 [facility] Serum or plasma sodium measu rement (moles/volume)Ordered By: Ronen Gonzales on 05-17-2022 Sodium [Moles/Vol] 134 mmol/L 136-146 [facility] Serum or plasma total carbon dioxide measurement (moles/volume)Ordered By: Ronen Gonzales on 05-17-2022 CO2 [Moles/Vol] 23.4 mmol/L 22.0-30.0 [facility] Serum or plasma total choles terol/high density lipoprotein (HDL) cholesterol mass ratOrdered By: Ronen Gonzales on 05-17-2022 Cholesterol.total/Luz Elena sterol in HDL [Mass ratio] 5.5 {ratio} [facility] Serum or plasma urea nitroge n measurement (mass/volume)Ordered By: Ronen Gonzales on 05-17-2022 Urea nitrogen [Mass/Vol] 18 mg/dL 9-23 [facility] Triglyceride [Mass/volume] i n Serum or PlasmaOrdered By: Ronen Gonzales on 05-17-2022 Triglyceride [Mass/Vol] 212 mg/dL 35-149 [facility] Comment on above: TRIG ATP III CLASSIF ICATION TRIG less than 150 mg/dL Normal TRIG 150-199 mg/dL Borderline high TRIG 200-500 mg/dL High TRIG greater than 500 mg/dL Very high Standard traceable to the Center for Disease Conrtrol and Prevention (CDC) test method. Activated partial thrombopla stin time (aPTT) in platelet poor plasma by coagulation aOrdered By: Juventino Thompson on 05-16-2022 aPTT Coag (PPP) [Time] 32.9 s 25.1-36.5 [facility] Albumin [Mass/volume] in Ser um or PlasmaOrdered By: Juventino Thompson on 05-16-2022 Albumin [Mass/Vol] 4.1 g/dL 3.2-5.5 [facility] Automated erythrocytes count in urine sediment (number/area)Ordered By: Ronen Gonzales on 05-16-2022 RBC Auto (Urine sed) [#/Area] 0-1 [HPF] [facility] Automated leukocytes count i n urine sediment (number/area)Ordered By: Ronen Gonzales on 05-16-2022 WBC Auto (Urine sed) [#/Area] 50-100 [HPF] [facility] Basophils Auto (Bld) [#/Vol] Ordered By: Juventino Thompson on 05-16-2022 Basophils (Bld) [#/Vol] 0.0 10*3/uL 0.0-0.2 [facility] Basophils/100 WBC Auto (Bld) Ordered By: Juventino Thompson on 05-16-2022 Basophils/100 WBC (Bld) 0.7 % [facility] Bilirubin Auto test strip Ql (U)Ordered By: Ronen Gonzales on 05-16-2022 Bilirubin Ql (U) Negative Negative [facility] Blood hemoglobin measurement (mass/volume)Ordered By: Juventino Thompson on 05-16-2022 Hemoglobin (Bld) [Mass/Vol] 16.5 g/dL 13.0-17.0 [facility] Blood leukocytes automated c ount (number/volume)Ordered By: Juventino Thompson on 05-16-2022 WBC (Bld) [#/Vol] 7.3 10*3/uL 4.5-11.0 [facility] COVID-19 Positive/NegativeOr dered By: Juventino Thompson on 05-16-2022 SARS-CoV-2 (COVID-19) N gene DHARA+probe Ql (Resp) Negative Negative [facility] Comment on above: Testing for SARS-CoV -2 by RT-PCR This test was developed and its performance characteristics determined by [employer] and validated at the [facility]. This test has not been FDA cleared or approved. This test has been authorized by FDA under an Emergency Use Authorization (EUA). This test has been validated in accordance with the FDA's Guidance Document (Policy for Diagnostics Testing in Laboratories Certified to Perform High Complexity Testing under CLIA prior to Emergency Use Authorization for Coronavirus Disease-2019 during the Public Health Emergency) issued on February 06, 2020. This test is only authorized for the duration of time the declaration that circumstances exist justifying the authorization of the emergency use of in vitro diagnostic tests for detection of SARS-CoV-2 virus and/or diagnosis of COVID-19 infection under section 564(b)(1) of the Act, 21 U.S.C. 360bbb-3(b)(1), unless the authorization is terminated or revoked sooner. COVID-19 SOFIAOrdered By: Jose Thompson on 05-16-2022 SARS-CoV+SARS-CoV-2 (COVID-19) Ag IA.rapid Ql (Resp) Negative Negative [facility] Comment on above: This is a duplicate Alesha SARS Antigen (PRINCESS) result to be used for statistical tracking purpose only. Cholesterol [Mass/volume] in Serum or PlasmaOrdered By: Ronen Gonzales on 05-16-2022 Cholesterol [Mass/Vol] 225 mg/dL 140-200 [facility] Comment on above: Chol less than 200 m g/dl low risk Chol 201-239 mg/dl borderline risk Chol 240 mg/dl and greater high risk Cholesterol in LDL Calc [Mas s/Vol]Ordered By: Ronen Gonzales on 05-16-2022 Cholesterol in LDL [Mass/Vol] 132 mg/dL 0-100 [facility] Comment on above: LDL ATP III CLASSIFI CATION LDL less than 100 mg/dL Optimal LDL 100-129 mg/dL Near or above optimal LDL 130-159 mg/dL Borderline high LDL 160-189 mg/dL High LDL greater than 189 mg/dL Very high Cholesterol in VLDL Calc [Ma ss/Vol]Ordered By: Ronen Gonzales on 05-16-2022 Cholesterol in VLDL [Mass/Vol] 52 mg/dL [facility] Creatine kinase [Enzymatic a ctivity/volume] in Serum or PlasmaOrdered By: Juventino Thompson on 05-16-2022 CK [Catalytic activity/Vol] 73 U/L 22-269 [facility] Creatinine and Glomerular fi ltration rate.predicted panel (S/P/Bld)Ordered By: Juventino Thompson on 05-16-2022 Creatinine [Mass/Vol] 0.98 mg/dL 0.64-1.27 [facility] Eosinophils Auto (Bld) [#/Vo l]Ordered By: Juventino Thompson on 05-16-2022 Eosinophils (Bld) [#/Vol] 0.4 10*3/uL 0.0-0.45 [facility] Eosinophils/100 WBC Auto (Bl d)Ordered By: Juventino Thompson on 05-16-2022 Eosinophils/100 WBC (Bld) 5.0 % [facility] Erythrocyte distribution wid th Auto (RBC) [Ratio]Ordered By: Juventino Thompson on 05-16-2022 Erythrocyte distribution width (RBC) [Ratio] 14.2 % 12.0-14.8 [facility] Estimated glomerular filtrat ion rate (GFR) non- AmericanOrdered By: Juventino Thompson on 05-16-2022 GFR/1.73 sq M.predicted among non-blacks MDRD (S/P/Bld) [Vol rate/Area] > 60 mL/Min [facility] Globulin Calc (S) [Mass/Vol] Ordered By: Juventino Thompson on 05-16-2022 Globulin (S) [Mass/Vol] 2.8 g/dL [facility] Glucose Glucometer (BldC) [M ass/Vol]Ordered By: Juventino Thompson on 05-16-2022 Glucose [Mass/Vol] 142 mg/dL [facility] Comment on above: Random Glucose Refer ence Range is dependent on time and content of last meal. Glucose of more than 200 mg/dL in a nonstressed, ambulatory subject supports the diagnosis of Diabetes Mellitus. Glucose mean value [Mass/vol ume] in Blood Estimated from glycated hemoglobinOrdered By: Ronen Gonzales on 05-16-2022 Average glucose Estimated from glycated hemoglobin (Bld) [Mass/Vol] 143 mg/dL [facility] Hematocrit Auto (Bld) [Volum e fraction]Ordered By: Juventino Thompson on 05-16-2022 Hematocrit (Bld) [Volume fraction] 49.9 % 38.8-50.0 [facility] Hemoglobin A1c percentageOrd ered By: Ronen Gonzales on 05-16-2022 HbA1c (Bld) [Mass fraction] 6.6 % 4.3-5.6 [facility] Comment on above: Increased risk for d iabetes: 5.7 - 6.4 diabetes: >6.4 glycemic control for adults with diabetes: <7.0 Ketones Auto test strip (U) [Mass/Vol]Ordered By: Ronen Gonzales on 05-16-2022 Ketones (U) [Mass/Vol] Negative Negative [facility] Laboratory - CoagulationOrde red By: Juventino Thompson on 05-16-2022 PT Coag (PPP) [Time] 10.8 s 9.0-12.9 [facility] Laboratory - Hematology and Cell countsOrdered By: Juventino Thompson on 05-16-2022 Nucleated RBC/100 WBC (Bld) [Ratio] 0.1 % 0-0.5 [facility] - Microbiology an d Antimicrobial susceptibilityOrdered By: Juventino Thompson on 05-16-2022 SARS-CoV-2 (COVID-19) RNA DHARA+probe Ql (Unsp spec) N/A [facility] - UrinalysisOrder ed By: Ronen Gonzales on 05-16-2022 Hyaline casts LM Ql (Urine sed) 0-8 [LPF] [facility] Lymphocytes Auto (Bld) [#/Vo l]Ordered By: Juventino Thompson on 05-16-2022 Lymphocytes (Bld) [#/Vol] 2.1 10*3/uL 1.00-4.8 [facility] Lymphocytes/100 WBC Auto (Bl d)Ordered By: Juventino Thompson on 05-16-2022 Lymphocytes/100 WBC (Bld) 29.2 % [facility] MCH Auto (RBC) [Entitic mass ]Ordered By: Juventino Thompson on 05-16-2022 MCH (RBC) [Entitic mass] 26.9 pg 27.5-35.2 [facility] MCHC Auto (RBC) [Mass/Vol]Or dered By: Juventino Thompson on 05-16-2022 MCHC (RBC) [Mass/Vol] 33.1 g/dL 32.5-35.6 [facility] MCV Auto (RBC) [Entitic vol] Ordered By: Juventino Thompson on 05-16-2022 MCV (RBC) [Entitic vol] 81.3 fL 83.5-101 [facility] Monocytes Auto (Bld) [#/Vol] Ordered By: Juventino Thompson on 05-16-2022 Monocytes (Bld) [#/Vol] 0.9 10*3/uL 0.0-0.8 [facility] Monocytes/100 WBC Auto (Bld) Ordered By: Juventino Thompson on 05-16-2022 Monocytes/100 WBC (Bld) 12.0 % [facility] Neutrophils Auto (Bld) [#/Vo l]Ordered By: Juventino Thompson on 05-16-2022 Neutrophils (Bld) [#/Vol] 3.9 10*3/uL 1.8-7.7 [facility] Neutrophils/100 WBC Auto (Bl d)Ordered By: Juventino Thompson on 05-16-2022 Neutrophils/100 WBC (Bld) 53.1 % [facility] No Panel InformationOrdered By: Ronen Gonzales on 05-16-2022 Bedside Glucose Comment Glu2: cleaned meter [facility] No Panel InformationOrdered By: Juventino Thompson on 05-16-2022 SARS Antigen (LFIA) [facility] Estimated GFR () > 60 mL/Min [facility] Comment on above: GFR estimated refere nce range: According to KDOQI guidelines, <60 ml/min/1.73m2 is sufficient to diagnose a patient with chronic kidney disease. Pharmacy Creatinine Clearance (Chem 91.40 [facility] Platelet mean volume Auto (B ld) [Entitic vol]Ordered By: Juventino Thompson on 05-16-2022 Platelet mean volume (Bld) [Entitic vol] 7.6 fL 6.6-10.1 [facility] Platelet poor plasma interna tional normalized ratio (INR) by coagulation assay (relatOrdered By: Juventino Thompson on 05-16-2022 INR Coag (PPP) [Relative time] 1.0 {INR} [facility] Comment on above: INR Therapeutic Rang e A) Pre- and Peroperative OAT started two weeks before surgery. NOT HIP SURGERY: 1.5 - 2.5 HIP SURGERY: 2 - 3 B) Primary and secondary prevention of venous THROMBOSIS: 2 - 3 C) Active venous thrombosis, pulmonary embolism and prevention of recurrent venous thrombosis: 2 - 3 D) Prevention of arterial thromboembolism including patients with mechanical heart valves: 3 - 4.5 Platelets Auto (Bld) [#/Vol] Ordered By: Juventino Thompson on 05-16-2022 Platelets (Bld) [#/Vol] 340 10*3/uL 150-450 [facility] Protein Auto test strip (U) [Mass/Vol]Ordered By: Ronen Gonzales on 05-16-2022 Protein (U) [Mass/Vol] Negative Negative [facility] Protein [Mass/volume] in Ser um or PlasmaOrdered By: Juventino Thompson on 05-16-2022 Protein [Mass/Vol] 6.9 g/dL 6.1-7.9 [facility] RBC Auto (Bld) [#/Vol]Ordere d By: Juventino Thompson on 05-16-2022 RBC (Bld) [#/Vol] 6.14 10*6/uL 3.90-5.60 [facility] Serum or plasma alanine ramos otransferase measurement without P-5'-P (enzymatic activiOrdered By: Juventino Thompson on 05-16-2022 ALT No additional P-5'-P [Catalytic activity/Vol] 21 U/L 10-60 [facility] Serum or plasma albumin/glob ulin mass ratioOrdered By: Juventino Thompson on 05-16-2022 Albumin/Globulin [Mass ratio] 1.5 {ratio} [facility] Serum or plasma alkaline ann sphatase measurement (enzymatic activity/volume)Ordered By: Juventino Thompson on 05-16-2022 ALP [Catalytic activity/Vol] 49 U/L 32-92 [facility] Serum or plasma aspartate am inotransferase measurement (enzymatic activity/volume)Ordered By: Juventino Thompson on 05-16-2022 AST [Catalytic activity/Vol] 22 U/L 10-42 [facility] Serum or plasma calcium jeremiah urement (mass/volume)Ordered By: Juventino Thompson on 05-16-2022 Calcium [Mass/Vol] 9.8 mg/dL 8.2-10.2 [facility] Serum or plasma chloride daniel surement (moles/volume)Ordered By: Juventino Thompson on 05-16-2022 Chloride [Moles/Vol] 101 mmol/L 95-114 [facility] Serum or plasma creatine kin ase MB (CKMB)/total creatine kinase (CK) ratio by calculaOrdered By: Juventino Thompson on 05-16-2022 CK.MB Calc [Catalytic fraction] 2.8 % 0.00-2.50 [facility] Serum or plasma creatine kin ase MB measurement (mass/volume)Ordered By: Juventino Thompson on 05-16-2022 CK.MB [Mass/Vol] 2.1 ng/mL 0.6-6.3 [facility] Serum or plasma glucose jeremiah urement (mass/volume)Ordered By: Juventino Thompson on 05-16-2022 Glucose [Mass/Vol] 145 mg/dL 70-100 [facility] Comment on above: ADA recommended refe rence range Random Glucose Reference Range is dependent on time and content of last meal. Glucose of more than 200 mg/dL in a nonstressed, ambulatory subject supports the diagnosis of Diabetes Mellitus. Serum or plasma high density lipoprotein (HDL) cholesterol measurementOrdered By: Ronen Gonzales on 05-16-2022 Cholesterol in HDL [Mass/Vol] 40 mg/dL 29-71 [facility] Comment on above: HDL CHOL ATP-III CLA SSIFICATION Cardiovascular Risk HDL > or equal to 60 mg/dL LOW HDL < 40 mg/dL HIGH Serum or plasma potassium me asurement (moles/volume)Ordered By: Juventino Thompson on 05-16-2022 Potassium [Moles/Vol] 4.6 mmol/L 3.5-5.1 [facility] Serum or plasma sodium measu rement (moles/volume)Ordered By: Juventino Thompson on 05-16-2022 Sodium [Moles/Vol] 133 mmol/L 136-146 [facility] Serum or plasma total biliru bin measurement (mass/volume)Ordered By: Juventino Thompson on 05-16-2022 Bilirubin [Mass/Vol] 0.9 mg/dL 0.3-1.2 [facility] Serum or plasma total carbon dioxide measurement (moles/volume)Ordered By: Juventino Thompson on 05-16-2022 CO2 [Moles/Vol] 20.9 mmol/L 22.0-30.0 [facility] Serum or plasma total choles terol/high density lipoprotein (HDL) cholesterol mass ratOrdered By: Ronen Gonzales on 05-16-2022 Cholesterol.total/Luz Elena sterol in HDL [Mass ratio] 5.6 {ratio} [facility] Serum or plasma urea nitroge n measurement (mass/volume)Ordered By: Juventino Thompson on 05-16-2022 Urea nitrogen [Mass/Vol] 21 mg/dL 9-23 [facility] Squamous epithelial cells de tection in urine sediment by light microscopyOrdered By: Ronen Gonzales on 05-16-2022 Epithelial cells.squamous LM Ql (Urine sed) None seen [HPF] [facility] TSH DL <= 0.005 mIU/L QnOrde red By: Ronen Gonzales on 05-16-2022 TSH Qn 2.28 m[IU]/L 0.45-5.33 [facility] Triglyceride [Mass/volume] i n Serum or PlasmaOrdered By: Ronen Gonzales on 05-16-2022 Triglyceride [Mass/Vol] 263 mg/dL 35-149 [facility] Comment on above: TRIG ATP III CLASSIF ICATION TRIG less than 150 mg/dL Normal TRIG 150-199 mg/dL Borderline high TRIG 200-500 mg/dL High TRIG greater than 500 mg/dL Very high Standard traceable to the Center for Disease Conrtrol and Prevention (CDC) test method. Troponin I.cardiac [Mass/vol ume] in Serum or Plasma by High sensitivity methodOrdered By: Juventino Thompson on 05-16-2022 Troponin I.cardiac High sensitivity method [Mass/Vol] 7 pg/mL 0-20 [facility] Urine appearanceOrdered By: Ronen Gonzales on 05-16-2022 Appearance (U) Slightly cloudy Clear [facility] Urine bacteria detection by automated methodOrdered By: Ronen Gonzales on 05-16-2022 Bacteria Auto Ql (U) 2+ None Seen [facility] Urine colorOrdered By: Keisha Gonzales on 05-16-2022 Color (U) Yellow Yellow [facility] Urine culture routineOrdered By: Ronen Gonzales on 05-16-2022 Bacteria identified Cx Nom (U) Escherichia coli [facility] Urine glucose measurement by automated test strip (mass/volume)Ordered By: Ronen Gonzales on 05-16-2022 Glucose Auto test strip (U) [Mass/Vol] Normal mg/dL Normal [facility] Urine hemoglobin detection b y automated test stripOrdered By: Ronen Gonzales on 05-16-2022 Hemoglobin Auto test strip Ql (U) Trace Negative [facility] Urine leukocyte esterase det ection by automated test stripOrdered By: Ronen Gonzales on 05-16-2022 Leukocyte esterase Auto test strip Ql (U) 3+ Negative [facility] Urine nitrite detection by a utomated test stripOrdered By: Ronen Gonzales on 05-16-2022 Nitrite Auto test strip Ql (U) Positive Negative [facility] Urobilinogen Auto test strip (U) [Mass/Vol]Ordered By: Ronen Gonzales on 05-16-2022 Urobilinogen (U) [Mass/Vol] Normal mg/dL Normal [facility] pH Auto test strip (U)Ordere d By: Ronen Gonzales on 05-16-2022 pH (U) 1.010 [pH] 1.001-1.03 0 [facility] pH (U) 5.5 [pH] 5.0-9.0 [facility] CULTURE URINEon 09-20-2020 CULTURE URINE Culture Observations : No growth Normal [facility] Comment on above: Performed By: #### U RCX #### [facility] [address] [address] Shane Solo MRI LEG LT WO CONon 04-07-20 20 MRI LEG LT WO CON EXAM: MRI LEG LT WO CON REASON FOR EXAM: Strain of muscle and/or tendon of lower leg. TECHNIQUE: Multiplanar, multisequence imaging of the left lower leg was performed without contrast COMPARISON: Plain radiograph 01/31/2020. FINDINGS: Study degraded by motion. There is fluid and edema tracking along the fascial border between the medial head of the gastrocnemius and the soleus muscle. Findings raise suspicion of underlying plantaris muscle strain/tendon tear. The remaining visualized muscles are intact. The bone marrow signal is normal. Limited evaluation of the knee is without discrete abnormality. The soft tissues are otherwise unremarkable. IMPRESSION: Suspect intermediate to high-grade muscle strain/tendon tear the plantaris muscle with fluid insinuated between the medial head of the gastrocnemius and the soleus muscle. Electronically authenticated by: MILTON POSADA Date: 2020-04-07 21:46 Normal [facility] XR ANKLE LT MIN 3 Von 2019 XR ANKLE LT MIN 3 V EXAM: XR ANKLE LT IL N 3 V. INDICATION: Sprain of left ankle. COMPARISON: None. TECHNIQUE: AP, lateral, oblique views of the left ankle. FINDINGS: The study is slightly limited due to nonoptimal positioning. The ankle mortise is preserved. Smooth margin of the talar dome. No acute fracture. The soft tissues are radiographically normal. Multiple soft tissue calcifications. A small enthesophyte is seen along the plantar fascial attachment of the calcaneus. Mild joint effusion is seen along the anterior tibiotalar joint. IMPRESSION: No acute osseous abnormality. Electronically authenticated by: CHRIS EUBANKS Date: 2020-01-31 22:48 Normal [facility] GLYCOHEMOGLOBIN A1Con 2019 Glucose [Mass/Vol] 151 mg/dL Normal [facility] Comment on above: Performed By: #### A 1C #### [facility] [address] [address] Shane Solo HbA1c (Bld) [Mass fraction] 6.9 % Critically high <=6.0 [facility] Comment on above: Performed By: #### A 1C #### [facility] [address] [address] Shane Solo Vital Signs Date Time Vital Sign Value Performing Clinician Facility 07-05-2023 01:20-0400 Diastolic blood pressure 86 mm[Hg] [employer] [facility] Work Phone: [facility] 07-05-2023 01:20-0400 Heart rate 95 /min [facility] Work Phone: [facility] 07-05-2023 01:20-0400 Respiratory rate 18 /min [employer] [facility] Work Phone: [facility] 07-05-2023 01:20-0400 SaO2% (BldA) [Mass fraction] 98 % [facility] Work Phone: [facility] 07-05-2023 01:20-0400 Systolic blood pressure 164 mm[Hg] [facility] Work Phone: [facility] 07-05-2023 00:12-0400 Body temperature 97.8 [degF] [facility] Work Phone: [facility] 07-04-2023 19:20-0400 Body height 167.64 cm [facility] Work Phone: [facility] 07-04-2023 19:20-0400 Body weight 104.32 kg [facility] Work Phone: [facility] 06-21-2023 13:00-0400 Body height 167.64 cm Paulie De La O Other [facility] [employer] Other 06-21-2023 13:00-0400 Body mass index (BMI) [Ratio] 36.96 kg/m2 Paulie De La O Other [facility] Other 06-21-2023 13:00-0400 Body weight 103.87 kg Paulie De La O Other [facility] Other 06-21-2023 13:00-0400 Diastolic blood pressure 80 mm[Hg] Paulie De La O Other [facility] Other 06-21-2023 13:00-0400 Systolic blood pressure 140 mm[Hg] Paulie De La O Other [facility] Other 09-27-2022 11:45-0500 Diastolic blood pressure 101 mm[Hg] [facility] Work Phone: [facility] 09-27-2022 11:45-0500 Heart rate 88 /min [facility] Work Phone: [facility] 09-27-2022 11:45-0500 Respiratory rate 16 /min [facility] Work Phone: [facility] 09-27-2022 11:45-0500 SaO2% (BldA) [Mass fraction] 98 % [facility] Work Phone: [facility] 09-27-2022 11:45-0500 Systolic blood pressure 154 mm[Hg] [facility] Work Phone: [facility] 09-27-2022 11:00-0500 Inhaled oxygen flow rate 8 L/min [facility] Work Phone: [facility] 09-27-2022 10:12-0500 Body height 167.64 cm [facility] Work Phone: [facility] 09-27-2022 10:12-0500 Body mass index (BMI) [Ratio] 38.9 kg/m2 [facility] Work Phone: [facility] 09-27-2022 10:12-0500 Body weight 109.3 kg [facility] Work Phone: [facility] 09-27-2022 08:32-0500 Body temperature 97.9 [degF] [facility] Work Phone: [facility] 05-21-2022 11:44-0400 Body temperature 97.8 [degF] DO Juventino Tupa Work Phone: [facility] 05-21-2022 11:44-0400 Diastolic blood pressure 91 mm[Hg] DO Juventino Tupa Work Phone: [facility] 05-21-2022 11:44-0400 Heart rate 84 /min DO Juventino Tupa Work Phone: [facility] 05-21-2022 11:44-0400 Respiratory rate 18 /min DO Juventino Tupa Work Phone: [facility] 05-21-2022 11:44-0400 SaO2% (BldA) [Mass fraction] 93 % DO Juventino Tupa Work Phone: [facility] 05-21-2022 11:44-0400 Systolic blood pressure 155 mm[Hg] DO Juventino Tupa Work Phone: [facility] 05-21-2022 04:29-0400 Body weight 111.5 kg DO Juventino Tupa Work Phone: [facility] 05-20-2022 13:52-0400 Body height 170.18 cm DO Juventino Tupa Work Phone: [facility] 05-19-2022 16:08-0400 Diastolic blood pressure 63 mm[Hg] DO Juventino Tupa Work Phone: [facility] 05-19-2022 16:08-0400 Heart rate 100 /min DO Juventino Tupa Work Phone: [facility] 05-19-2022 16:08-0400 Respiratory rate 18 /min DO Juventino Tupa Work Phone: [facility] 05-19-2022 16:08-0400 SaO2% (BldA) [Mass fraction] 100 % DO Juventino Tupa Work Phone: [facility] 05-19-2022 16:08-0400 Systolic blood pressure 124 mm[Hg] DO Juventino Tupa Work Phone: [facility] 05-19-2022 15:35-0400 Body height 170.18 cm DO Juventino Tupa Work Phone: [facility] 05-19-2022 15:35-0400 Body mass index (BMI) [Ratio] 38 kg/m2 DO Juventino Tupa Work Phone: [facility] 05-19-2022 15:35-0400 Body temperature 97.9 [degF] DO Juventino Tupa Work Phone: [facility] 05-19-2022 15:35-0400 Body weight 110 kg DO Juventino Tupa Work Phone: [facility] 05-17-2022 15:36-0400 Body temperature 97.8 [degF] DO Juventino Tupa Work Phone: [facility] 05-17-2022 15:36-0400 Diastolic blood pressure 79 mm[Hg] DO Juventino Tupa Work Phone: [facility] 05-17-2022 15:36-0400 Heart rate 77 /min DO Juventino Tupa Work Phone: [facility] 05-17-2022 15:36-0400 Respiratory rate 18 /min DO Juventino Tupa Work Phone: [facility] 05-17-2022 15:36-0400 SaO2% (BldA) [Mass fraction] 96 % DO Juventino Tupa Work Phone: [facility] 05-17-2022 15:36-0400 Systolic blood pressure 144 mm[Hg] DO Juventino Tupa Work Phone: [facility] 05-17-2022 12:59-0400 Body height 170.18 cm DO Juventino Tupa Work Phone: [facility] 05-17-2022 05:03-0400 Body weight 108.6 kg DO Juventino Tupa Work Phone: [facility] 05-17-2022 00:25-0400 Inhaled oxygen concentration 21 % DO Juventino Tupa Work Phone: [facility] 05-16-2022 12:55-0400 Body mass index (BMI) [Ratio] 38 kg/m2 DO Juventino Tupa Work Phone: [facility] 05-16-2022 11:25-0400 Diastolic blood pressure 90 mm[Hg] DO Juventino Tupa Work Phone: [facility] 05-16-2022 11:25-0400 Heart rate 75 /min DO Juventino Tupa Work Phone: [facility] 05-16-2022 11:25-0400 Respiratory rate 16 /min DO Juventino Tupa Work Phone: [facility] 05-16-2022 11:25-0400 SaO2% (BldA) [Mass fraction] 95 % DO Juventino Tupa Work Phone: [facility] 05-16-2022 11:25-0400 Systolic blood pressure 169 mm[Hg] DO Juventino Tupa Work Phone: [facility] 05-16-2022 07:56-0400 Body temperature 98.2 [degF] DO Juventino Lespa Work Phone: [facility] 05-16-2022 07:55-0400 Body height 167.64 cm DO Juventino Tupa Work Phone: [facility] 05-16-2022 07:55-0400 Body mass index (BMI) [Ratio] 39.4 kg/m2 DO Juventino Tupa Work Phone: [facility] 05-16-2022 07:55-0400 Body weight 111 kg DO Juventino Saldanapa Work Phone: [facility] Encounters Encounter Date Encounter Type Care Provider Facility Start: 07-04-2023 End: 07-05-2023 [facility] Start: 07-04-2023 End: 07-05-2023 Emergency department patient visit [facility] Work Phone: [facility] Work Phone: Start: 06-22-2023 End: 06-22-2023 ambulatory Paulie De La O Other [facility] Other Start: 06-22-2023 Telephone encounter Paulie De La O [facility] Start: 06-21-2023 End: 06-21-2023 ambulatory Paulie De La O Other [facility] [employer] Other Start: 06-21-2023 Office outpatient ne w 45 minutes Paulie De La O [facility] Start: 04-26-2023 End: 04-27-2023 ambulatory Juventino LEE Facility:[facility] [place] Start: 10-12-2022 End: 10-13-2022 ambulatory Juventino LEE Facility:[facility] Start: 10-12-2022 End: 10-12-2022 Patient encounter procedure Juventino LEE [facility] [place] Start: 09-28-2022 End: 09-29-2022 ambulatory Juventino LEE Facility:[facility] Start: 09-28-2022 End: 09-28-2022 Patient encounter procedure Juventino LEE [facility] Start: 09-27-2022 End: 09-27-2022 ambulatory [facility] Facility[facility] Start: 09-27-2022 End: 09-27-2022 Admission to same day surgery center [facility] Work Phone: [facility] [place] Start: 09-27-2022 End: 09-28-2022 ambulatory [facility] Work Phone: [facility] Work Phone: Start: 09-13-2022 End: 09-13-2022 ambulatory [facility] Facility:[facility] Start: 09-13-2022 End: 09-13-2022 ambulatory [facility] Work Phone: [facility] Work Phone: Start: 09-13-2022 End: 09-13-2022 Patient encounter procedure [facility] Work Phone: [facility] Start: 08-16-2022 End: 08-17-2022 ambulatory Juventino LEE Facility:[facility] Start: 08-16-2022 End: 08-16-2022 Patient encounter procedure Juventino LEE [facility] Start: 07-13-2022 End: 07-14-2022 ambulatory Juventino LEE Facility:[facility] Start: 07-13-2022 End: 07-13-2022 Patient encounter procedure Juventino LEE [facility] Start: 06-16-2022 ambulatory Juventino LEE Facility :[facility] Start: 06-10-2022 End: 06-24-2022 Pre-admission assessment PADMINI ANIL [facility] Start: 05-19-2022 End: 05-21-2022 Evaluation and management of inpatient DO Juventino Thompson Work Phone: [facility] [place] [facility] Start: 05-16-2022 End: 05-17-2022 Evaluation and management of inpatient DO Juventino Thompson Work Phone: [facility] [place] [facility] Start: 09-20-2020 End: 09-21-2020 Patient encounter procedure ROSA SOLIS Facility:[facility] Start: 08-12-2020 End: 08-13-2020 Patient encounter procedure NONE LISTED REQUEST Facility:[facility] Start: 05-06-2020 Patient encounter procedure DEL DUCNAN Facility:[facility] Start: 04-07-2020 End: 04-08-2020 Patient encounter procedure CAROL ABDALLA Facility:[facility] Start: 01-31-2020 End: 02-01-2020 Patient encounter procedure CAROL ABDALLA Facility:[facility] Start: 11-11-2019 End: 11-12-2019 Patient encounter procedure NONE LISTED REQUEST Facility: Procedures Date Procedure Procedure Detail Performing Clinician Start: 09-27-2022 Cystoscopy [facility] Work Phone: Start: 09-27-2022 Cystourethroscopy wi th dilation of urethral stricture Juventino LEE Start: 08-16-2022 Cystourethroscopy wi th dilation of urethral stricture Juventino LEE Start: 05-20-2022 MRI of head DO Juventino Thompson Work Phone: Start: 05-19-2022 CT of abdomen and pe lvis without contrast DO Juventino Thompson Work Phone: Start: 05-19-2022 SARS Antigen (LFIA) DO Juventino Thompson Work Phone: Start: 05-19-2022 Plain chest X-ray DO Jose Thompson Work Phone: Start: 05-19-2022 CT of head without contrast DO Juventino Thompson Work Phone: Start: 05-17-2022 MRI of cervical spin e without contrast DO Juventino Thompson Work Phone: Start: 05-17-2022 MRI of head DO Juventino Thompson Work Phone: Start: 05-16-2022 SARS Antigen (LFIA) DO Juventino Thompson Work Phone: Start: 05-16-2022 Urine culture DO Quan Thompson Work Phone: Start: 05-16-2022 CT angiography of head DO Juventino Thompson Work Phone: Start: 05-16-2022 CT angiography of ne ck vessels DO Juventino Thompson Work Phone: Start: 05-16-2022 CT of head without contrast DO Juventino Thompson Work Phone: Start: 08-12-2020 [object Object] NONE CAROLINE SHETH REQUEST Comment on above: Performed By: #### P SAD #### [facility] [address] [address] Shane Solo Dilation of urethra PADMINI MA History of hernia repair JESSY MA Procedure on knee PADMINI CHAVEZ Plan of Treatment Date Care Activity Detail Author Start: 07-04-2023 Bacteria identified in Blood by Culture [facility] Start: 07-04-2023 Bacteria identified in Urine by Culture [facility] Start: 09-27-2022 End: 09-27-2022 [facility] Start: 05-19-2022 MRI of head MR head/brain wo [facility] Start: 05-16-2022 Bacteria identified in Urine by Culture Urine Culture [facility] Start: 05-16-2022 Urine culture Urine Culture [facility] Bacteria identified in Urine by Culture [facility] Work Phone: Patient Education Urinary Tract Infection, Adult ED [facility] Work Phone: Patient referral [facility] Work Phone: SARS-CoV-2 (COVID-19 ) N gene [Presence] in Respiratory specimen by DHARA with probe detection [facility] Work Phone: Immunizations Immunization Date Immunization Notes Care Provider Makenna flood 12-29-2020 SARS-CoV-2 (COVID-19 ) mRNA BNT-162b2 baldox Juventino LEE [facility] 12-08-2020 SARS-CoV-2 (COVID-19 ) mRNA BNT-162b2 baldox Juventino LEE [facility] Payers Date Payer Category Payer Unknown [id number] 2. [id number] 2022 Self-pay [id number] 1960 Unknown [id number] 2.16.84 [id number] 1960 Unknown [id number] 2.16.84 0.1.098256.3.579.2.593 1960 Unknown [id number] 2.16.84 0.1.238010.3.579.2.593 1960 Unknown [id number] 2.16.84 0.1.831575.3.579.2.593 1960 Unknown [id number] 2.16.84 0.1.698858.3.579.2.593 1960 Unknown [id number] 2.16.8 40.1.316334.3.579.2.727 1960 Unknown [id number] 2.16.8 40.1.676082.3.579.2.727 1960 Unknown [id number] 2.16.8 40.1.547076.3.579.2.727 1960 Unknown [id number] 2.16.8 40.1.670730.3.579.2.727 1960 Unknown [id number] 2.16.8 40.1.278970.3.579.2.727 1960 Unknown [id number] 2.16.8 40.1.786321.3.579.2.727 1960 Unknown [id number] 2.16.8 40.1.030790.3.579.2.727 1959 Self-pay [id number] 1959 Unknown [id number] 1959 Unknown [id number] 1959 Unknown Unknown [id number] 2.16.84 0.1.623437.3.579.2.593 Unknown [id number] 2.16.8 40.1.881425.3.579.2.531 Unknown [id number] 2.16.8 40.1.955724.3.579.2.531 Unknown [id number] 2.16.8 40.1.039751.3.579.2.531 Social History Date Type Detail Facility Start: 08-14-2020 End: 05-16-2022 Tobacco smoking status NHIS Ex-smoker (finding) [facility] Start: 1960 Sex Assigned At Male F [facility] Start: 05-19-2022 End: 07-04-2023 Tobacco smoking status NHIS Never smoked tobacco (finding) [facility] Sex Assigned At Male [facility] Goals Date Patient Goal Desired Activity /State Functional Status Date Assessment Result Facility 07-13-2022 Functional Status N/A [facility] 05-21-2022 Functional status Patient at Baseline [facility] Work Phone: 05-19-2022 Functional status Patient at Baseline [facility] Work Phone: 05-17-2022 Functional status Patient at Baseline [facility] Work Phone: 05-16-2022 Functional status Patient at Baseline [facility] Work Phone: Mental Status Date Assessment Result Facility 05-21-2022 Cognitive function Cognitive Sta tus Patient at Baseline [facility] Work Phone: 05-19-2022 Cognitive function Cognitive Sta tus Patient at Baseline [facility] Work Phone: 05-17-2022 Cognitive function Cognitive Sta tus Patient at Baseline [facility] Work Phone: 05-16-2022 Cognitive function Cognitive Sta tus Patient at Baseline [facility] Work Phone: Clinical Notes 05-16-2022 to 06-21-2023 Note Date & Type Note Facility 06-21-2023 Evaluation note Encounter Date Diagnosis Assessment Notes Jun, Primary osteoarthritis of right knee (ICD-10 - M17.11) 63 y/o male here with complaints of bilateral knee pain. He states his pain started many years ago with no known inciting trauma. He states he is scheduled for a left knee scope next week. Prior to examining the patient I reviewed recent progress notes from the referring provider, Dr. Mccallum. I would like to proceed with a steroid injection to the right knee, I will discuss with Dr. Mccallum if this can be done prior to his upcoming scope. Otherwise we will proceed with steroid injections after his surgery. Jun, Chronic pain (ICD-10 - G89.29) Proceed with treatment plan. Jun, Right knee pain (ICD-10 - M25.561) Follow up after steroid injection to the right knee Jun, Other Medical decision making shows a new problem to me with further workup planned or suggested with the potential for extensive treatment options that were considered with the most applicable given this patient's situation as noted above. Treatment options considered include a combination of physical therapy approaches, pharmacologic management, and interventional procedures. Those most applicable to the patient were discussed at this time. Risk of complications and/or morbidity and mortality is high given that acute and chronic pain poses a threat to life and bodily function if undertreated, poorly treated or with failure to maintain adequate treatment and timely followup. Given the serious and fluctuating nature of pain with extensive consideration for whenever pain changes, there always remains the possibility of prolonged functional impairment requiring constant patient reassessment and high-level medical decision making. The amount and complexity of data reviewed is high given that patient labs, radiology reports, and other test were obtained, reviewed and summarized as applicable from the physician portal and/or outside medical records. Pertinent positive and negative findings were considered in medical decision-making. [employer] Other [id number] Hospital Discharge instructions Patient Education 10/12/2022 13:43:24 Benign Prostatic Hyperplasia Benign Prostatic Hyperplasia Benign prostatic hyperplasia (BPH) is an enlarged prostate gland that is caused by the normal agingprocess and not by cancer. The prostate is a walnut-sized gland that is involved in the production of semen. It is located in front of the rectum and below the bladder. The bladder stores urine and the urethra is the tube that carries the urine out of the body. The prostate may get bigger as a man gets older. An enlarged prostate can press on the urethra. This can make it harder to pass urine. The build-up of urine in the bladder can cause infection. Back pressure and infection may progress to bladder damage and kidney (renal) failure. What are the causes? This condition is part of a normal aging process. However, not all men develop problems from this condition. If the prostate enlarges away from the urethra, urine flow will not be blocked. If it enlarges toward the urethra and compresses it, there will be problems passing urine. What increases the risk? This condition is more likely to develop in men over the age of 50 years. What are the signs or symptoms? Symptoms of this condition include: Getting up often during the night to urinate. Needing to urinate frequently during the day. Difficulty starting urine flow. Decrease in size and strength of your urine stream. Leaking (dribbling) after urinating. Inability to pass urine. This needs immediate treatment. Inability to completely empty your bladder. Pain when you pass urine. This is more common if there is also an infection. Urinary tract infection (UTI). How is this diagnosed? This condition is diagnosed based on your medical history, a physical exam, and your symptoms. Tests will also be done, such as: A post-void bladder scan. This measures any amount of urine that may remain in your bladder after you finish urinating. A digital rectal exam. In a rectal exam, your health care provider checks your prostate by putting a lubricated, gloved finger into your rectum to feel the back of your prostate gland. This exam detects the size of your gland and any abnormal lumps or growths. An exam of your urine (urinalysis). A prostate specific antigen (PSA) screening. This is a blood test used to screen for prostate cancer. An ultrasound. This test uses sound waves to electronically produce a picture of your prostate gland. Your health care provider may refer you to a specialist in kidney and prostate diseases (urologist). How is this treated? Once symptoms begin, your health care provider will monitor your condition (active surveillance or watchful waiting). Treatment for this condition will depend on the severity of your condition. Treatment may include: Observation and yearly exams. This may be the only treatment needed if your condition and symptoms are mild. Medicines to relieve your symptoms, including: ?Medicines to shrink the prostate. ?Medicines to relax the muscle of the prostate. Surgery in severe cases. Surgery may include: ?Prostatectomy. In this procedure, the prostate tissue is removed completely through an open incision or with a laparoscope or robotics. ?Transurethral resection of the prostate (TURP). In this procedure, a tool is inserted through the opening at the tip of the penis (urethra). It is used to cut away tissue of the inner core of the prostate. The pieces are removed through the same opening of the penis. This removes the blockage. ?Transurethral incision (TUIP). In this procedure, small cuts are made in the prostate. This lessens the prostate's pressure on the urethra. ?Transurethral microwave thermotherapy (TUMT). This procedure uses microwaves to create heat. The heat destroys and removes a small amount of prostate tissue. ?Transurethral needle ablation (TUNA). This procedure uses radio frequencies to destroy and remove a small amount of prostate tissue. ?Interstitial laser coagulation (ILC). This procedure uses a laser to destroy and remove a small amount of prostate tissue. ?Transurethral electrovaporization (TUVP). This procedure uses electrodes to destroy and remove a small amount of prostate tissue. ?Prostatic urethral lift. This procedure inserts an implant to push the lobes of the prostate away from the urethra. Follow these instructions at home: Take hlxn-mgm-klhqish and prescription medicines only as told by your health care provider. Monitor your symptoms for any changes. Contact your health care provider with any changes. Avoid drinking large amounts of liquid before going to bed or out in public. Avoid or reduce how much caffeine or alcohol you drink. Give yourself time when you urinate. Keep all follow-up visits as told by your health care provider. This is important. Contact a health care provider if: You have unexplained back pain. Your symptoms do not get better with treatment. You develop side effects from the medicine you are taking. Your urine becomes very dark or has a bad smell. Your lower abdomen becomes distended and you have trouble passing your urine. Get help right away if: You have a fever or chills. You suddenly cannot urinate. You feel lightheaded, or very dizzy, or you faint. There are large amounts of blood or clots in the urine. Your urinary problems become hard to manage. You develop moderate to severe low back or flank pain. The flank is the side of your body between the ribs and the hip. These symptoms may represent a serious problem that is an emergency. Do not wait to see if the symptoms will go away. Get medical help right away. Call your local emergency services (911 in the [place] Do not drive yourself to the hospital. Summary Benign prostatic hyperplasia (BPH) is an enlarged prostate that is caused by the normal aging process and not by cancer. An enlarged prostate can press on the urethra. This can make it hard to pass urine. This condition is part of a normal aging process and is more likely to develop in men over the age of 50 years. Get help right away if you suddenly cannot urinate. This information is not intended to replace advice given to you by your health care provider. Make sure you discuss any questions you have with your health care provider. Document Released: 10/23/2006 Document Revised: 09/17/2019 Document Reviewed: 11/27/2017 [employer] Patient Education 2020 [employer]. Follow Up Care 09/28/2022 09:38:10 With:ASHKAN ANGELES, Juventino Sims, XAVIERL Address: [facility] [address] [place] [address]- When: Unknown [facility] 10-11-2022 Note [id number]:[id number] 08-16-2022 Hospital Discharge instructions Patient Education 08/16/2022 12:11:59 [facility] - Cystoscopy Discharge Instructions (CUSTOM) Cystoscopy Voiding after the procedure: there may be some pain, burning, urgency, frequency and blood tinged urine following the procedure. These symptoms usually resolve within 2-5 days. Drink the amount of fluid it takes to keep the urine pink to yellow or clear in color. Drinking enough water and fluids will help to ease any discomfort after your procedure. If you are having problems that seem out of the ordinary, please call. If unable to contact your physician and you feel it is an emergency, go to the nearest emergency room or call 911 Diet you may resume your normal diet. Activity you may resume your normal activities Call if you have a fever over 100 degrees. Follow Up Care 07/26/2022 13:23:31 With:Juventino LEE Address: [facility] [address] [place] [address]- Business (1) When: Unknown Comments:Office will call to schedule follow upOffice will call to schedule follow up [facility]10-11-2022 NoteCustom Cystoscopy ? Voiding after the procedure: there may be some pain, burning, urgency, frequency and blood tingedurine following the procedure. These symptoms usually resolve within 2-5 days. Drink the amount of fluid it takes to keep the urine pink to yellow or clear in color. Drinking enough water and fluids will help to ease any discomfort after your procedure. ? If you are having problems that seem out of the ordinary, please call. ? If unable to contact your physician and you feel it is an emergency, go to the nearest emergency room or call 911 ? Diet ? you may resume your normal diet. ? Activity ? you may resume your normal activities ? Call if you have a fever over 100 degrees.[facility] 08-16-2022 Evaluation + Plan noteExtracted from: Title:Urology Progress Note Author:ASHKAN ANGELES, Jose Sims Date:08/16/22 Impression and Plan Impression: #1. This gentleman has partially treated urinary tract infection. He needs more antibiotics. 2. He has recurrent urethral strictures. These need to get dilated. 3. He has architecturally rather severe bladder damage. Apparently, he would always hold his urine in for many hours during the day over several decades. Plan: #1. He is starting on Cipro 500 twice daily for 2 more weeks. 2. He will continue Flomax. 3. We are going to get him set up for cystoscopy and urethral dilation with Lowe sounds under anesthesia. Diagnostic Tests Pending * Urine Cytology ([facility]) 08/16/22 [facility]09-07-2022 Hospital Discharge instructions Patient Education 07/13/2022 11:00:40 Prostatitis Prostatitis Prostatitis is swelling or inflammation of the prostate gland. The prostate is a walnut-sized glandthat is involved in the production of semen. It is located below a man's bladder, in front of the rectum. There are four types of prostatitis: Chronic nonbacterial prostatitis. This is the most common type of prostatitis. It may be associatedwith a viral infection or autoimmune disorder. Acute bacterial prostatitis. This is the least common type of prostatitis. It starts quickly and isusually associated with a bladder infection, high fever, and shaking chills. It can occur at any age. Chronic bacterial prostatitis. This type usually results from acute bacterial prostatitis that happens repeatedly (is recurrent) or has not been treated properly. It can occur in men of any age but is most common among middle-aged men whose prostate has begun to get larger. The symptoms are not as severe as symptoms caused by acute bacterial prostatitis. Prostatodynia or chronic pelvic pain syndrome (CPPS). This type is also called pelvic floor disorder. It is associated with increased muscular tone in the pelvis surrounding the prostate. What are the causes? Bacterial prostatitis is caused by infection from bacteria. Chronic nonbacterial prostatitis may becaused by: Urinary tract infections (UTIs). Nerve damage. A response by the body s disease-fighting system (autoimmune response). Chemicals in the urine. The causes of the other types of prostatitis are usually not known. What are the signs or symptoms? Symptoms of this condition vary depending upon the type of prostatitis. If you have acute bacterialprostatitis, you may experience: Urinary symptoms, such as: ?Painful urination. ?Burning during urination. ?Frequent and sudden urges to urinate. ?Inability to start urinating. ?A weak or interrupted stream of urine. Vomiting. Nausea. Fever. Chills. Inability to empty the bladder completely. Pain in the: ?Muscles or joints. ?Lower back. ?Lower abdomen. If you have any of the other types of prostatitis, you may experience: Urinary symptoms, such as: ?Sudden urges to urinate. ?Frequent urination. ?Difficulty starting urination. ?Weak urine stream. ?Dribbling after urination. Discharge from the urethra. The urethra is a tube that opens at the end of the penis. Pain in the: ?Testicles. ?Penis or tip of the penis. ?Rectum. ?Area in front of the rectum and below the scrotum (perineum). Problems with sexual function. Painful ejaculation. Bloody semen. How is this diagnosed? This condition may be diagnosed based on: A physical and medical exam. Your symptoms. A urine test to check for bacteria. An exam in which a health care provider uses a finger to feel the prostate (digital rectal exam). A test of a sample of semen. Blood tests. Ultrasound. Removal of prostate tissue to be examined under a microscope (biopsy). Tests to check how your body handles urine (urodynamic tests). A test to look inside your bladder or urethra (cystoscopy). How is this treated? Treatment for this condition depends on the type of prostatitis. Treatment may involve: Medicines to relieve pain or inflammation. Medicines to help relax your muscles. Physical therapy. Heat therapy. Techniques to help you control certain body functions (biofeedback). Relaxation exercises. Antibiotic medicine, if your condition is caused by bacteria. Warm water baths (sitz baths). Sitz baths help with relaxing your pelvic floor muscles, which helpsto relieve pressure on the prostate. Follow these instructions at home: Take ihfc-eiw-ugxzodz and prescription medicines only as told by your health care provider. If you were prescribed an antibiotic, take it as told by your health care provider. Do not stop taking the antibiotic even if you start to feel better. If physical therapy, biofeedback, or relaxation exercises were prescribed, do exercises as instructed. Take sitz baths as directed by your health care provider. For a sitz bath, sit in warm water that is deep enough to cover your hips and buttocks. Keep all follow-up visits as told by your health care provider. This is important. Contact a health care provider if: Your symptoms get worse. You have a fever. Get help right away if: You have chills. You feel nauseous. You vomit. You feel light-headed or feel like you are going to faint. You are unable to urinate. You have blood or blood clots in your urine. This information is not intended to replace advice given to you by your health care provider. Make sure you discuss any questions you have with your health care provider. Document Released: 10/20/2001 Document Revised: 01/05/2019 Document Reviewed: 07/13/2017 [employer] Patient Education 2020 [employer]. Follow Up Care 06/16/2022 09:59:18 With:ASHKAN ANGELES, Juventino Sims, URL Address: [facility] [address] , [place] [address]- When: Unknown [facility] [facility] 07-15-2022 Consult note Author Hector Ansari [facility] May 20, 2022 4:01pm Note Date/Time May 20, 2022 9:00 am [facility] [address] [place] [address] Neurology Consult Note Signed Patient: Juan Abreu MR#: [id number] : 1960 Acct:[id number] Age/Sex: 62 / M Adm Date: 2 Loc: Room: [address] [place] [address] Type : ADM INOo Attending Dr: Nydia Marcelino MD Copies to: Hector Ansari, [facility] SHARON Kwan MD~ HPI Consult Date: 05/20/22 Front End Assistant: Arin Leiva APRN with Dr. Ansari Reason for consult: stroke Consult Narrative HPI: Patient is 62-year-old male with past medical history of diabetes controlled with metformin, hypertension, hyperlipidemia. Neurology is consulted due to continuation and worsening of his stroke symptoms. He was previously admitted and diagnosed with a left thalamic stroke and discharged on 05/17/2022. Initial presentation of his symptoms includes left-sided weakness, paresthesias and difficulty ambulating as well as speech difficulty described as garbled speech. On this admission patient states he woke up yesterday having increased weakness in his left arm and left leg without slurred speech. Prior to this he did have transient recurrence of symptoms the day prior with left-sided facial droop, left-sided tingling and numbness as well as weakness that lasted for 15 minutes.. The next morning he was unable to get up from bed and unfortunately sustained a fall due to weakness of left lower and left upper extremity. His symptoms did gradually improve however upon ER arrival he still had left-sided facial droop. He continues to have subjective tingling and numbness. On discharge she was found to have a UTI and was prescribed Amoxiciilin However patient did not pick this up and get this started prior to readmission. Today patient is sitting up in bed with no acute distress for assessment. He reports very poor sleep last night. He feels that he is improved today with better speech and decreased weakness. He feels that the paresthesias have also improved Left-sided facial droop remains. He denies any new or worsening symptoms. He is vision is intact and denies any double vision or loss of vision. He denies any dizziness or headache. Review of Systems Review of Systems Review of systems: Constitutional Constitutional: Pleasant, cooperative for exam Psych Normal affect Eyes Eyes: Denies change in vision, Denies loss of vision ENT Ears, Nose, Mouth, and Throat: Denies congestion Cardiovascular Cardiovascular: Denies chest pain, Denies dyspnea Respiratory Respiratory: Denies cough, Denies wheezing Gastrointestinal Gastrointestinal: Denies fecal incontinence, Denies nausea, Denies vomiting Genitourinary Genitourinary: Urinary catheter in place, Denies dysuria, Denies urinary incontinence Musculoskeletal Musculoskeletal: Reports improved muscle weakness to left upper and lower extremity Integumentary/Breasts Skin/Breast: Denies rash Neurologic Neurologic: Denies dizziness, Denies headache(s), Denies visual disturbances. Reports improvement of weakness and resolution of paresthesias to face and left upper and lower extremity. PMFSH Vaccinated for COVID-19?: Yes Medical History (Updated 05/19/22 @ 13:56 by Jesse Sampson DO) BMI 38.0-38.9,adult Diabetes Hyperlipidemia Hypertension EDWIN on CPAP Sleep apnea Surgical History History of Achilles tendon repair History of cholecystectomy History of hernia repair Family History Mother Heart attack Social History Smoking Status: Never smoker Substance Use Type: None Substance Abuse Comment: Did smoke 1 pack/day for 3 years, quitting in 2004. Meds Medications and Allergies Allergies No Known Allergies Allergy (Verified 05/19/22 12:14) Home Medications cholecalciferol (vitamin D3) 125 mcg (5,000 unit) tablet (Vitamin D3) 125 mcg PODAILY 05/16/22 [History Confirmed 05/19/22] lisinopril 20 mg-hydrochlorothiazide 12.5 mg tablet 1 tab PO DAILY 05/16/22 [History Confirmed 05/19/22] metformin 1,000 mg tablet 1,000 mg PO BID 05/16/22 [History Confirmed 05/19/22] sitagliptin 100 mg tablet (Januvia) 100 mg PO DAILY 05/16/22 [History Confirmed 05/19/22] aspirin 81 mg tablet,delayed release 81 mg PO DAILY 30 Days #30 tab 05/17/22 [Rx Confirmed 05/19/22] atorvastatin 40 mg tablet 40 mg PO QPM 30 Days #30 tab 05/17/22 [Rx Confirmed 05/19/22] cetirizine 10 mg tablet 10 mg PO DAILY 05/19/22 [History Confirmed 05/19/22] Exam Physical Exam Vital Signs: Temp Pulse Resp BP Pulse Ox 97.4 F L 87 20 142/84 H 97 05/19/22 20:16 05/20/22 06:39 05/20/22 06:39 05/20/22 06:39 05/20/22 06:39 Narrative: GENERAL EXAM: Constitutional - Patient in no acute distress, cooperative for exam Patient is alert and oriented x3 Apical regular rate and rhythm, lung sounds clear throughout Neck supple without carotid bruit Abdomen soft, non-tender NEURO EXAM: Attention span/concentration normal Speech is clear and fluent Cranial nerve II. Vision is intact. ROMA Cranial nerve III, IV and . Extraocular muscles are intact. No nystagmus is appreciated Cranial nerve V and VII. There is facial asymmetry with facial droop to left side of face. Temperature and pinprick is equal bilaterally Cranial nerve VIII hearing is intact Cranial nerve IX and X speech is clear fluent. Palate elevates symmetrically Cranial nerve XI head turn side to side full range of motion. Shoulder shrug isequal bilaterally Cranial nerve XII tongue protrudes midline MOTOR EXAM: Strength is 4/5 left upper extremity, 5/5 right upper extremity. 5/5 bilateral lower extremities. Pronator drift appreciated to left upper extremity Muscle tone and bulk are normal SENSORY EXAM: Sensory intact CEREBELLAR EXAM: Anorfc-cm-pamc and alternating movements are mildly impaired to left upper extremity, intact and normal On the right REFLEX EXAM: 3/4 at the bicep and brachialis bilaterally. 3/4 at the patella and achilles bilaterally. Results Laboratory Findings CBC and BMP: 05/19/22 12:13 05/20/22 06:44 Diagnostic Findings Imaging/Impressions: ITS Impressions Head CT 05/19/22 12:08 IMPRESSION: There is no acute intracranial pathology. There is evidence of edema from a subacute infarct in the right deep caraballo nucleiwhich is only slightly more extensive when compared to the previous MRI. Findings were discussed with Dr. Alvarez at 12:28 PM on 05/19/2022 Impression dictated by: Obie Contreras M.D.05/19/2022 12:28 PM Dictation Location: [place] [address] Chest X-Ray 05/19/22 12:10 IMPRESSION: Cardiomegaly with interstitial prominence and hazy bibasilar airspace opacities presumably relating to congestive heart failure/volume overload. Impression dictated by: Obie Contreras M.D.05/19/2022 12:31 PM Dictation Location: [place] [address] Abdomen/Pelvis CT 05/19/22 14:08 IMPRESSION: No bowel obstruction or obstructive uropathy. There is a 13 mm focus of wall thickening along the lateral wall of the bladder to the left of midline which is of uncertain etiology. Nonemergent urologic consultation is recommended as an underlying malignancy is not excluded. There is uncomplicated colonic diverticulosis. There is 9 mm of anterolisthesis of L5 upon S1 with bilateral L5 pars defects consistent with grade 1 spondylolisthesis. General changes are noted in the thoracolumbar spine, hips, and sacroiliac joints. Impression dictated by: Obie Contreras M.D.05/19/2022 3:04 PM Dictation Location: [place] [address] Assessment/Plan (1) Stroke-like symptoms: Code(s): R29.90 - Unspecified symptoms and signs involving the nervous system Status: Acute (2) VANNESA (acute kidney injury): Code(s): N17.9 - Acute kidney failure, unspecified Status: Acute (3) EDWIN on CPAP: Code(s): G47.33 - Obstructive sleep apnea (adult) (pediatric); Z99.89 - Dependence on other enabling machines and devices Status: Acute (4) Right thalamic stroke: Code(s): I63.81 - Other cerebral infarction due to occlusion or stenosis of small artery Status: Acute (5) Acute ischemic stroke: Code(s): I63.9 - Cerebral infarction, unspecified Status: Acute (6) Left-sided weakness: Code(s): R53.1 - Weakness Status: Acute (7) Speech disturbance: Code(s): R47.9 - Unspecified speech disturbances Status: Acute (8) Hypertension: Code(s): I10 - Essential (primary) hypertension Status: Acute (9) Hyperlipidemia: Code(s): E78.5 - Hyperlipidemia, unspecified Status: Acute (10) Diabetes: Code(s): E11.9 - Type 2 diabetes mellitus without complications Status: Acute Plan 62-year-old male with history of hypertension, hyperlipidemia, diabetes controlled with metformin, recent thalamic stroke return to the ER with complaints of worsening strokelike symptoms. The symptoms were reported as having increased weakness in his left arm and leg as well as paresthesias. He previously had full stroke work-up revealed the left thalamic stroke and was discharged on 05/17/2022. His stroke work-up at that time revealed well-controlled diabetes with an A1c of 6.6. LDL elevated at 128. CTA head and neck identified plaque of the carotid bifurcation with less than 50% stenosis bilaterally. Echo on showed ejection fraction 55 to 60% with mild concentric left ventricular hypertrophy without thrombus vegetation or mass. Noevidence of PFO. MRI cervical spine was also completed which did show mild to moderate foraminal narrowing bilaterally at C5-6, C6-7. Patient has multiple stroke risk factors including his hypertension, diabetes, dyslipidemia and obstructive sleep apnea. Concern for worsening or secondary stroke Or secondary effects due to edema of subacute infarct, or recrudescence of symptoms due to acute kidney injury and or UTI identified at previous admission. * CT head on 05/19 shows evidence of edema from subacute infarct in the right deep caraballo nuclei which is only slightly more extensive when compared to previous MRI, otherwise nonacute * CTA head and neck on 05/16/2022 with calcified plaque carotid bifurcations bilaterally less than 50% stenosis. No dissection occlusion or abrupt cut off. * MRI brain pending * Echo from 05/16/2022 with EF 55 to 60%, mild concentric left ventricular hyp ertrophy, no thrombus vegetation or mass, negative for PFO * EKG sinus tachycardia, possible infarct age undetermined * A1c 6.6 patient on metformin, LDL 128, patient on atorvastatin 40 mg * Creatinine on admission elevated at 2.09, improved today to 1.17 * No evidence of leukocytosis however UA from recent admission positive for E. coli patient never started amoxicililn as outpt prior to readmission * COVID-negative * Attestation Statement I agree with the above. Patient seen and examined. His symptoms have improved somewhat. Examination as above. MRI without any apparent change to the acute ischemia other than expected evolution of findings. I do not think he had a new ischemic event. He may have fluctuating symptoms related to his current urinary tract infection. The plan will still be aspirin 81 mg daily and atorvastatin 40 mg daily. Goal of normotension. He will be working on his hyperglycemic control. No other recommendations at this time andhe can be discharged from my perspective. Documented By: Arin Leiva APRN 05/20/22 0858 Signed By: <Electronically signed by SHARON Leiva> 05/20/22 1124 <Electronically signed by Hector Ansari DO> 05/20/22 1601 [facility] Work Phone: 1(386) 744-883707-15-2022 Progress note Author Nydia Marcelino [facility] May 20, 2022 1:54pm Note Date/Time May 20, 2022 1:48 pm [facility] [address] [place] [address] Hospitalist Progress Note Signed Patient: Juan Abreu MR#: [id number] : 1960 Acct:[id number] Age/Sex: 62 / M Adm Date: 2 Loc: Room: [address] [place] [address] Type : ADM INOo Attending Dr: Nydia Marcelino MD Copies to: ~ Date of Service: 05/20/2022 Subjective Subjective Narrative: The patient has been seen and examined. He is feeling better. Denies any headache any vision problems. Still left-sided facial droop persist, tingling numbness and weakness improved in left upper and lower extremity. Denies any other complaints. Physical exam: General -awake, alert, oriented ?3, not in acute distress Cardiovascular -S1 with S2, no murmurs, no rubs, no gallops Pulmonary - clear to auscultation bilaterally Gastrointestinal - abdomen is soft, nondistended, nontender, bowel sounds positive, there is no rigidity, no rebound Extremities -no edema Neurological -left-sided facial droop persistent, Exam Physical Exam Vital Signs: Temp Pulse Resp BP Pulse Ox 36.3 C L 87 20 142/84 H 97 05/19/22 20:16 05/20/22 06:39 05/20/22 06:39 05/20/22 06:39 05/20/22 06:39 Objective Lab Results CBC & Chem 7: 05/19/22 12:13 05/20/22 06:44 Microbiology Results Microbiology 05/19/22 14:15 Nasal SARS Antigen (LFIA) - Final Meds Allergies and Active Meds Allergies No Known Allergies Allergy (Verified 05/19/22 12:14) Active Meds: Active Medications Generic Name Dose Route Start Last Admin Trade Name Cheryl PRN Reason Stop Dose Admin Acetaminophen 650 mg 05/19/22 17:59 Acetaminophen 325 Mg Tablet PO 05/19/23 17:58 Q4H PRN Pain Scale 1 - 5 Atorvastatin Calcium 40 mg 05/19/22 21:00 05/19/22 22:17 Atorvastatin 40 Mg Tablet PO 05/19/23 20:59 40 mg QPM FLETCHER Administration Clopidogrel Bisulfate 75 mg 05/19/22 16:15 05/20/22 10:06 Clopidogrel Bisulfate 75 Mg Tablet PO 06/09/22 16:14 75 mg DAILY FLETCHER Administration Dextrose 0 gm 05/19/22 17:59 Dextrose 50% In Water 25 Gm/50 Ml Syringe IV-PUSH 05/19/23 17:58 PRN PRN Hypoglycemia Docusate Sodium 200 mg 05/19/22 17:59 Docusate 100 Mg Capsule PO 05/19/23 17:58 BID PRN Constipation Glucose 0 gm 05/19/22 17:59 Dextrose 40% Gel 15 Gm Tube PO 05/19/23 17:58 PRN PRN Hypoglycemia Heparin Sodium (Porcine) 5,000 unit 05/19/22 22:00 05/20/22 06:36 Heparin 5,000 Unit/Ml Vial SUBCUT 05/19/23 21:59 5,000 unit Q8HR FLETCHER Administration Hydralazine HCl 10 mg 05/19/22 17:59 Hydralazine 20 Mg/Ml Vial IV-PUSH 05/19/23 17:58 Q4H PRN if SBP > 185 Sodium Chloride 1,000 mls @ 125 mls/hr 05/19/22 16:00 05/20/22 01:29 0.9% Sodium Chloride 1,000 Ml IV 05/19/23 15:59 125 mls/hr .Q8H FLETCHER Administration Cefazolin Sodium 1 gm in 50 mls @ 100 mls/hr 05/19/22 17:00 05/20/22 10:06 Ancef IV 100 mls/hr Q8H FLETCHER Administration Insulin Aspart 0 units 05/19/22 22:00 05/20/22 13:31 Insulin Aspart 300 Units/3 Ml Insuln.Pen SUBCUT 05/19/23 21:59 Not Given TID.WM.HS FLETCHER Protocol Linagliptin 5 mg 05/20/22 09:00 05/20/22 10:06 Linagliptin 5 Mg Tablet PO 05/20/23 08:59 5 mg DAILY FLETCHER Administration Loratadine 10 mg 05/20/22 09:00 05/20/22 10:06 Loratadine 10 Mg Tablet PO 05/20/23 08:59 10 mg DAILY FLETCHER Administration Sodium Chloride 0 ml 05/19/22 12:11 05/19/22 12:56 Sodium Chloride 0.9 % 10 Ml Syringe IV-PUSH 05/19/23 12:10 10 ml PRN PRN Administration Flush A&P - Hospitalist Assessment/Plan (1) Stroke-like symptoms: (2) VANNESA (acute kidney injury): Plan 1. Recurrent left-sided facial droop with left upper and lower extremity weakness/paresthesia Probably superimposed on acute kidney injury/urine retention/UTI CT scan showed similar findings to the previous one with slight edema, Decadron was given in the emergency room Neurological symptoms improved, aspirin switched to Plavix MRI reviewed, similar findings noted, slightly worse Blood pressure stable carotid duplex pending 2. Acute kidney injury with urine retention, Vaz catheter placed, continue tofollow Kidney function improved, discussed with the patient he will need to follow-up with urology 3. E. coli urinary tract infection, continue with Rocephin 4 hypertension blood pressure stable 5. 13 mm focus of wall thickening along the lateral side of the bladder wall, will refer to urology as outpatient 6. DVT prophylaxis Documented By: Nydia Marcelino MD 05/20/22 1344 Signed By: <Electronically signed by Nydia Marcelino MD> 05/20/22 1354 [facility] Work Phone: [phone] 129-273507-14-2022 History and physical note Author Nydia Marcelino [facility] May 19, 2022 5:50pm Note Date/Time May 19, 2022 5:45 pm [facility] [address] [place] [address] Hospitalist H&P Signed Patient: Juan Abreu MR#: [id number] : 1960 Acct:[id number] Age/Sex: 62 / M Adm Date: 2 Loc: 3T Room: [address] [place] [address] Type : ADM IN Attending Dr: Nydia Marcelino MD Copies to: [facility] Nydia Marcelino MD~ HPI DATE OF EXAMINATION: 05/19/22 CHIEF COMPLAINT: Left-sided upper and lower extremity numbness with weakness HISTORY OF PRESENT ILLNESS: 62 years old male who was diagnosed with acute ischemic stroke and was discharged on May 17, 2022 with aspirin therapy presented with recurrent symptoms. According to the patient he did have transient recurrence of his symptoms yesterday associated with left-sided facial droop, left-sided tingling numbness and weakness lasting for about 15 minutes. Last night at 4 am he was doing quite well, he walked upstairs and was doing good, however this morning hewas not able to get up from the bed and fell due to weakness of the left upper and left lower extremity associated with left- sided facial droop He presented to emergency room. Gradually his symptoms improved. When I saw him he still had some left-sided facial droop, but left upper and lower extremity weakness resolved. He still had some subjective tingling and numbness. Denied any headache, denies any vision problems. He denied any abdominal pain, denied any problems with urination. But he was found to have acute kidney injury with bladder scan showing post void L3 100 cc, Vaz catheter was inserted. Also he was recently diagnosed with urinary tract infection and was prescribed Augmentin. Review of Systems Review of Systems Review of systems: 10 systems are reviewed and are negative apart what is mentioned in H&P PMFSH Vaccinated for COVID-19?: Yes Medical History (Updated 05/19/22 @ 13:56 by Jesse Sampson DO) BMI 38.0-38.9,adult Diabetes Hyperlipidemia Hypertension EDWIN on CPAP Sleep apnea Surgical History History of Achilles tendon repair History of cholecystectomy History of hernia repair Family History Mother Heart attack Social History Smoking Status: Never smoker Substance Use Type: None Substance Abuse Comment: Did smoke 1 pack/day for 3 years, quitting in 2004. Meds Medications and Allergies Allergies No Known Allergies Allergy (Verified 05/19/22 12:14) Home Medications cholecalciferol (vitamin D3) 125 mcg (5,000 unit) tablet (Vitamin D3) 125 mcg PODAILY 05/16/22 [History Confirmed 05/19/22] lisinopril 20 mg-hydrochlorothiazide 12.5 mg tablet 1 tab PO DAILY 05/16/22 [History Confirmed 05/19/22] metformin 1,000 mg tablet 1,000 mg PO BID 05/16/22 [History Confirmed 05/19/22] sitagliptin 100 mg tablet (Januvia) 100 mg PO DAILY 05/16/22 [History Confirmed 05/19/22] aspirin 81 mg tablet,delayed release 81 mg PO DAILY 30 Days #30 tab 05/17/22 [Rx Confirmed 05/19/22] atorvastatin 40 mg tablet 40 mg PO QPM 30 Days #30 tab 05/17/22 [Rx Confirmed 05/19/22] cetirizine 10 mg tablet 10 mg PO DAILY 05/19/22 [History Confirmed 05/19/22] Exam Physical Exam Vital Signs: Temp Pulse Resp BP Pulse Ox 36.6 C 100 H 18 124/63 100 05/19/22 15:35 05/19/22 16:08 05/19/22 16:08 05/19/22 16:08 05/19/22 16:08 Narrative: The patient has been seen and examined in the emergency General -patient is awake alert oriented ?3, does not appear to be in distress HEENT -normal oropharyngeal mucosa without any ulcers or exudates Cardiovascular -S1 plus S2, with regular rate, without any murmurs, gallops, rubs Pulmonary -clear to auscultation bilaterally Gastrointestinal -abdomen is soft, nondistended, nontender, bowel sounds positive, no rigidity, no rebound Genitourinary -no flank tenderness Musculoskeletal -no back tenderness, no significant joint swelling, full range of motion Neurological -left-sided facial droop noted, pupils are equal and symmetrical, extraocular muscle intact, no nystagmus, motor function 5 out of 5 in upper and lower extremities, sensation subjectively slightly decreased in the left upper and lower extremity, finger to nose test performed well without any dysmetria, reflexes symmetrical bilaterally in lower extremities, speech is clear, no tremors noted, gait deferred Skin -no significant ulcers, no rash noted Extremities - no edema in bilateral lower extremities noted Psychiatry - appropriate affect Laboratory work up, imaging studies reviewed EKG personally reviewed by me sinus tachycardia with ventricular rate 102, with nonspecific ST-T wave changes Previous records in the computer system reviewed CT scan of the head evidence of edema from subacute infarct in the right deep caraballo nuclei which is only slightly more extensive when compared to the previous MRI Last admission CTA showed less than 50% bilateral bifurcation stenosis CT scan of the abdomen and pelvis without contrast No bowel obstruction or obstructive uropathy. ? There is a 13 mm focus of wall thickening along the lateral wall of the bladder to the left of midline which is of uncertain etiology.? Nonemergent urologic consultation is recommended as an underlying malignancy is not excluded. ? There is uncomplicated colonic diverticulosis. ? There is 9 mm of anterolisthesis of L5 upon S1 with bilateral L5 pars defects consistent with grade 1 spondylolisthesis.? General changes are noted in the thoracolumbar spine, hips, and sacroiliac joints.? Results Lab Results Labs: Laboratory Last Values Corrected WBC 9.3 X10E3/uL (4.1-10.5) 05/19/22 12:13 Uncorrected WBC Count 9.3 x10E3/uL (4.5-11.0) 05/19/22 12:13 RBC 6.32 x10E6/uL (3.90-5.60) H 05/19/22 12:13 Hgb 17.1 g/dL (13.0-17.0) H 05/19/22 12:13 Hct 50.9 % (38.8-50.0) H 05/19/22 12:13 MCV 80.5 fl (83.5-101) L 05/19/22 12:13 MCH 27.0 pg (27.5-35.2) L 05/19/22 12:13 MCHC 33.6 g/dL (32.5-35.6) 05/19/22 12:13 RDW 14.1 % (12.0-14.8) 05/19/22 12:13 Plt Count 348 x10E3/uL (150-450) 05/19/22 12:13 MPV 7.4 fl (6.6-10.1) 05/19/22 12:13 Neut % (Auto) 64.5 % (.) 05/19/22 12:13 Lymph % (Auto) 23.7 % (.) 05/19/22 12:13 [place] % (Auto) 9.1 % (.) 05/19/22 12:13 Eos % (Auto) 2.2 % (.) 05/19/22 12:13 Baso % (Auto) 0.5 % (.) 05/19/22 12:13 Neut # (Auto) 6.0 x10E3/uL (1.8-7.7) 05/19/22 12:13 Lymph # (Auto) 2.2 x10E3/uL (1.00-4.8) 05/19/22 12:13 [place] # (Auto) 0.9 x10E3/uL (0.0-0.8) H 05/19/22 12:13 Eos # (Auto) 0.2 x10E3/uL (0.0-0.45) 05/19/22 12:13 Baso # (Auto) 0.0 x10E3/uL (0.0-0.2) 05/19/22 12:13 Nucleated RBC % (auto) 0.1 % (0-0.5) 05/19/22 12:13 PT 11.6 Seconds (9.0-12.9) 05/19/22 12:13 INR 1.0 05/19/22 12:13 APTT 32.6 Seconds (25.1-36.5) 05/19/22 12:13 PHA Creatinine Clear 43.47 05/19/22 12:13 Sodium 133 mmol/L (136-146) L 05/19/22 12:13 Potassium 4.2 mmol/L (3.5-5.1) 05/19/22 12:13 Chloride 99 mmol/L (95-114) 05/19/22 12:13 Carbon Dioxide 20.8 mmol/L (22.0-30.0) L 05/19/22 12:13 BUN 49 mg/dL (9-23) H 05/19/22 12:13 Creatinine 2.09 mg/dL (0.64-1.27) H 05/19/22 12:13 POC Creatinine 2.2 mg/dl (0.6-1.3) H 05/19/22 12:13 POC eGFR Amer 37 05/19/22 12:13 POC eGFR Non-Afric Amer 30 05/19/22 12:13 Est GFR ( Amer) 39 mL/Min 05/19/22 12:13 Est GFR (Non-Af Amer) 32 mL/Min 05/19/22 12:13 Glucose 156 mg/dL (70-100) H 05/19/22 12:13 POC Glucose 156 mg/dl 05/19/22 12:10 POC Glucose Comment Glu2: cleaned meter 05/19/22 12:10 Calcium 10.1 mg/dL (8.2-10.2) 05/19/22 12:13 Total Bilirubin 1.2 mg/dL (0.3-1.2) 05/19/22 12:13 AST 17 U/L (10-42) 05/19/22 12:13 ALT 21 U/L (10-60) 05/19/22 12:13 Alkaline Phosphatase 53 U/L (32-92) 05/19/22 12:13 Total Creatine Kinase 80 U/L (22-269) 05/19/22 12:13 CK-MB (CK-2) 2.3 ng/mL (0.6-6.3) 05/19/22 12:13 CK-MB (CK-2) Rel Index 2.8 % (0.00-2.50) H 05/19/22 12:13 Troponin I High Sens 5 pg/mL (0-20) 05/19/22 12:13 B-Natriuretic Peptide 10.0 pg/mL (5-100) 05/19/22 12:13 Total Protein 7.2 gm/dL (6.1-7.9) 05/19/22 12:13 Albumin 4.2 gm/dL (3.2-5.5) 05/19/22 12:13 Globulin 3.0 gm/dL 05/19/22 12:13 Albumin/Globulin Ratio 1.4 05/19/22 12:13 SARS Antigen (LFIA) Negative (Negative) 05/19/22 14:15 Microbiology Results Micro: Microbiology - Results from entire visit 05/19/22 14:15 Nasal SARS Antigen (LFIA) - Final A&P - Hospitalist Assessment/Plan (1) Stroke-like symptoms: (2) VANNESA (acute kidney injury): Plan 1. Recurrent left-sided facial droop with left upper and lower extremity weakness/paresthesia Probably superimposed on acute kidney injury/urine retention/UTI CT scan showed similar findings to the previous one with slight edema, Decadron was given in the emergency room Neurological symptoms improved, for now we will continue aspirin we will discusswith neurologist to switch to plan I will do duplex of the carotid Blood pressure stable 2. Acute kidney injury with urine retention, Vaz catheter placed, continue tofollow Start hydration 3. E. coli urinary tract infection, continue with Rocephin 4 hypertension blood pressure stable 5. 13 mm focus of wall thickening along the lateral side of the bladder wall, will refer to urology as outpatient 6. DVT prophylaxis Documented By: Nydia Marcelino MD 05/19/221741 Signed By: <Electronically signed by Nydia Marcelino MD> 05/19/22 1750 [facility] Work Phone: [phone] 278-579307-12-2022 Progress note Author Hector Ansari [facility] May 17, 2022 4:38pm Note Date/Time May 17, 2022 8:54 am [facility] [address] [place] [address] Neurology Progress Note Signed Patient: Juan Abreu MR#: [id number] : 1960 Acct:[id number] Age/Sex: 62 / M Adm Date: 2 Loc: Room: [address] [place] [address] Type : ADM INOo Attending Dr: Ronen Gonzales DO Copies to: ~ Date of Service: 05/17/2022 Subjective Subjective Narrative: Patient states the strength in his left leg is back to baseline. He denies any new symptoms. He does have weakness on the left side of his face and talks out of the right side of his mouth. He states has been like that but is unsure really how long. When asked if it was like that 2 weeks ago he states yes but not this bad. Review of Systems Cardiovascular Cardiovascular: Denies chest pain and Denies palpitations Respiratory Respiratory: Denies dyspnea Gastrointestinal Gastrointestinal: Denies nausea Musculoskeletal Musculoskeletal: Denies back pain, Reports myalgias, Denies neck pain and Reports stiffness Neurologic Neurologic: Denies abnormal gait, Denies abnormal speech, Denies dizziness, Denies localized weakness, Denies headache(s), Denies other visual disturbances, Denies paresthesias and Denies tremor(s) Exam Physical Exam Vital Signs: Temp Pulse Resp BP Pulse Ox 97.4 F L 77 20 123/76 96 05/17/22 04:00 05/17/22 04:00 05/17/22 04:00 05/17/22 04:00 05/17/22 04:00 Narrative: GENERAL EXAM: * Constitutional - Patient appears well nourished and well groomed * Patient is alert and oriented x3. * Apical is regular rate and rhythm. No murmur was appreciated. No edema noted. Pulses are normal * Lung sounds are clear to auscultation * Abdomen is soft with normal bowel * Neck is supple without carotid bruit * Ophthalmoscopic exam deferred. No injection or drainage noted. NEURO EXAM: * Attention span/concentration normal * Speech is clear and fluent * Cranial nerve II. Vision is intact. ROMA * Cranial nerve III, IV and . Extraocular muscles are intact. No nystagmus is appreciated * Cranial nerve V and VII. Weakness of the left side of the mouth which he states is not new. Onset is unknown. Temperature and pinprick is equal bilaterally * Cranial nerve VIII hearing is intact * Cranial nerve IX and X speech is clear fluent. Palate elevates symmetrically * Cranial nerve XI head turn side to side full range of motion. Shoulder shrug is equal bilaterally * Cranial nerve XII tongue is midline full range of motion MOTOR EXAM: * Strength is 5/5 throughout. No pronator drift was appreciated * Muscle tone and bulk are normal * Gait normal SENSORY EXAM: * Temperature, pinprick, vibration are intact in all 4 extremities and symmetric CEREBELLAR EXAM: * [id number] and alternating movements are intact and normal in bilateral upper extremities * Iiaf-eu-jjfw and alternating movements are intact and normal in lower extremities REFLEX EXAM: * 3/4 at the bicep and brachioradialis with bilateral Efren * 3/4 at the patella bilaterally with cross abductor present bilaterally * No clonus Objective Vital Signs Vital Signs: Vital Signs - 24 hr 05/16/22 09:19 05/16/22 11:25 05/16/22 12:55 Temperature 97.7 F Pulse Rate Pulse Rate [Monitor] 79 75 Respiratory Rate 20 16 18 Blood Pressure Blood Pressure [Left Arm] 160/81 H 169/90 H 170/99 H 02 Sat by Pulse Oximetry 97 95 05/16/22 17:25 05/16/22 18:43 05/16/22 20:00 Temperature 97.7 F Pulse Rate 91 H 94 H 86 Pulse Rate [Monitor] Respiratory Rate 16 18 Blood Pressure 159/84 H 176/96 H 163/90 H Blood Pressure [Left Arm] 02 Sat by Pulse Oximetry 95 94 L 05/17/22 00:00 05/17/22 00:25 05/17/22 04:00 Temperature 97.4 F L Pulse Rate 86 75 77 Pulse Rate [Monitor] Respiratory Rate 20 16 20 Blood Pressure 128/79 123/76 Blood Pressure [Left Arm] 02 Sat by Pulse Oximetry 94 L 97 96 Labs CBC & Chem 7: 05/17/22 06:46 05/17/22 06:46 Lab Results: 05/16/22 07:55: Hemoglobin A1c 6.6 H Therapy Recommendations Therapy Recommendations: OT Recommendations OT Recommended Discharge Home Location PT Recommendations DC Physical Therapy Due To: No Skilled PT Needs,At Baseline PT Recommended Discharge Home Location Assessment/Plan (1) Carotid stenosis: Code(s): I65.29 - Occlusion and stenosis of unspecified carotid artery Status: Acute (2) Hypertension: Code(s): I10 - Essential (primary) hypertension Status: Acute (3) Hyperlipidemia: Code(s): E78.5 - Hyperlipidemia, unspecified Status: Acute (4) Diabetes: Code(s): E11.9 - Type 2 diabetes mellitus without complications Status: Acute (5) Left-sided weakness: Code(s): R53.1 - Weakness Status: Acute (6) Speech disturbance: Code(s): R47.9 - Unspecified speech disturbances Status: Acute (7) Acute ischemic stroke: Code(s): I63.9 - Cerebral infarction, unspecified Status: Acute Plan Patient is a 62-year-old male with stroke risk factors including gender, hypertension, hyperlipidemia, diabetes, and mild carotid stenosis at the bifurcation bilaterally. Patient presented with garbled speech, Left-sided paresthesias, and left lower extremity weakness with gait instability. Last known well was on 05/14/2022. Due to duration of symptoms he is not a tPA candidate. CT scan of the head was nonacute. CTA of the head neck showed mild disease at the carotid bifurcations bilaterally but no occlusive disease. Symptoms most consistent with a right hemispheric infarct or possibly embolic stroke given speech is involved with left-sided weakness. Patient stroke evaluation as below. Patient is hyperreflexic on exam so we will add MRI cervical spine to exclude cervical myelopathy. Interval history: Patient denies any new symptoms. Feels like the strength in his left leg is back to normal. Awaiting MRI. 1. CT scan of the head nonacute. MRI Brain report pending; personally reviewedand shows right lateral thalamus and periventricular white matter acute ischemiaas well as evidence of deep remote/chronic microhemorrhages. 2. CTA of the head neck showed less than 50% stenosis at the carotid bifurcation bilaterally. No occlusive disease. 3. Echocardiogram - EF 55 to 60%. No thrombus/vegetation/mass. No PFO. Left atrium normal in size. 4. Hemoglobin A1c 6.6 5. LDL 132. Statin increased to 40 mg nightly 6. Aspirin added for secondary stroke prevention 7. Stroke risk factors discussed 8. PT/OT/ST - Recommend home 9. MRI cervical spine Report pending; Personally reviewed and appears to show multilevel central canal stenosis, moderate to severe but no compressive myelopathy. 10. LFTs normal, CPK 73 11. TSH 2.28 12. Urinalysis consistent with infection with positive nitrates, 3+ leukocyte esterase, 2+ bacteria, and 50-100 WBC. Urine culture is pending. Treatment perprimary team 13. COVID-19 negative 14. We will follow Attestation Statement I agree with the above. Patient seen and examined. Acute ischemic stroke involving right lateral thalamus and periventricular whitematter resulting in left hemiparesis and left facial weakness. Deficits gradually improving. Suspected this to be small vessel in etiology. Biggest cerebrovascular risk factor in his case would be hypertension, diabetes, hyperlipidemia, and obstructive sleep apnea. Started on aspirin here. Continue on the more aggressive statin medication. Recommended better compliance with CPAP machine. No other inpatient recommendations from a neurology standpoint. Documented By: MELI Figueroa [id number] Signed By: <Electronically signed by MELI Rizvi> 05/17/22 1051 <Electronically signed by Hector Ansari DO> 05/17/22 1638 [facility] Work Phone: [phone]) 470-205907-11-2022 Consult note Author Hector Ansari [facility] May 16, 2022 4:56pm Note Date/Time May 16, 2022 2:33 pm [facility] [address] [place] [address] Neurology Consult Note Signed Patient: Juan Abreu MR#: [id number] : 1960 Acct:[id number] Age/Sex: 62 / M Adm Date: 2 Loc: Room: [address] [place] [address] Type : ADM IN Attending Dr: Ronen Gonzales DO Copies to: Hector Ansari DO [facility] MELI Figueroa DO~ HPI Consult Date: 05/16/22 Front End Assistant: MARY ANNE Neri with Dr Ansari Reason for consult: Stroke Consult Narrative HPI: Patient is a 62-year-old male with medical history diabetes, hypertension, hyperlipidemia. He has been seen in neurological consultation at the [facility] service for stroke. Patient presented to the emergency room with persistent left-sided weakness, paresthesias and difficulty ambulating as well as speech difficulty on Monday described as garbled speech which resolved. Patient noticed that he was having difficulty ambulating with left lower extremity weakness when he was working out in the yard. He called his son who is a nurse practitioner and the patient was seen and evaluated in the emergency room. He did have a CT scan of the head that was nonacute. Blood pressure 196/112. CTA of the head neck was negative for occlusive disease. He was admitted for stroke evaluation. He would not be a tPA candidate due to duration of symptoms. [facility] Vaccinated for COVID-19?: Yes Medical History (Updated 05/16/22 @ 14:27 by MARIELY Neri) BMI 38.0-38.9,adult Diabetes Hyperlipidemia Hypertension Surgical History History of Achilles tendon repair History of cholecystectomy History of hernia repair Family History Mother Heart attack Social History Smoking Status: Former smoker Substance Use Type: None Meds Medications and Allergies Allergies No Known Allergies Allergy (Verified 05/16/22 07:53) Home Medications atorvastatin 20 mg tablet 20 mg PO DAILY 05/16/22 [History Confirmed 05/16/22] cholecalciferol (vitamin D3) 125 mcg (5,000 unit) tablet (Vitamin D3) 125 mcg PODAILY 05/16/22 [History Confirmed 05/16/22] lisinopril 20 mg-hydrochlorothiazide 12.5 mg tablet 1 tab PO DAILY 05/16/22 [History Confirmed 05/16/22] metformin 1,000 mg tablet 1,000 mg PO BID 05/16/22 [History Confirmed 05/16/22] sitagliptin 100 mg tablet (Januvia) 100 mg PO DAILY 05/16/22 [History Confirmed 05/16/22] Exam Physical Exam Vital Signs: Temp Pulse Resp BP Pulse Ox 97.7 F 75 18 170/99 H 95 05/16/22 12:55 05/16/22 11:25 05/16/22 12:55 05/16/22 12:55 05/16/22 11:25 Narrative: Well-kempt. No distress. No deformities or trauma. Seated on side of bed. Normal spinal curvature. Limbs seem well-perfused. No significant edema. Normal work of breathing. Visualized skin is generally intact and without lesions. Affect normal. Patient is alert and generally oriented. Attention normal. Speech is fluent and nondysarthric. Pupils are equal, reactive, and consensual. Ocular motility is full. No nystagmus. Facial sensation is normal. Hearing is normal. Left facial weakness sparing the forehead. Tongue is midline. Left upper extremity with mild pronator drift without limb drift. No tremors. Reflexes diffusely hyperactive (+3/4) with bilateral Sweeney signs. Vibratory sensation is normal. Normal rapidly alternating movements. No limb dysmetria with [id number] testing. Results Laboratory Findings CBC and BMP: 05/16/22 07:55 05/16/22 07:55 Lab Results: Hemoglobin A1c 6.6 % (4.3-5.6) H 05/16/22 07:55 Diagnostic Findings Imaging/Impressions: ITS Impressions Head CT 05/16/22 08:15 IMPRESSION: No acute intracranial findings. Impression dictated by: Greg Brooks M.D.05/16/2022 9:18 AM Dictation Location: [place] [address] Head CTA 05/16/22 08:15 IMPRESSION: No occlusion, critical stenosis or dissection of the extracranial orintracranial circulation. No intracranial aneurysm. Impression dictated by: Greg Brooks M.D.05/16/2022 9:40 AM Dictation Location: [place] [address] Assessment/Plan (1) Carotid stenosis: Code(s): I65.29 - Occlusion and stenosis of unspecified carotid artery Status: Acute (2) Hypertension: Code(s): I10 - Essential (primary) hypertension Status: Acute (3) Hyperlipidemia: Code(s): E78.5 - Hyperlipidemia, unspecified Status: Acute (4) Diabetes: Code(s): E11.9 - Type 2 diabetes mellitus without complications Status: Acute (5) Left-sided weakness: Code(s): R53.1 - Weakness Status: Acute (6) Speech disturbance: Code(s): R47.9 - Unspecified speech disturbances Status: Acute Plan Patient is a 62-year-old male with stroke risk factors including gender, hypertension, hyperlipidemia, diabetes, and mild carotid stenosis at the bifurcation bilaterally. Patient presented with garbled speech, Left-sided paresthesias, and left lower extremity weakness with gait instability. Last known well was on 05/14/2022. Due to duration of symptoms he is not a tPA candidate. CT scan of the head was nonacute. CTA of the head neck showed mild disease at the carotid bifurcations bilaterally but no occlusive disease. Symptoms most consistent with a right hemispheric infarct or possibly embolic stroke given speech is involved with left-sided weakness. Patient stroke evaluation as below. Patient is hyperreflexic on exam so we will add MRI cervical spine to exclude cervical myelopathy. 1. CT scan of the head nonacute. MRI scan of the brain is pending 2. CTA of the head neck showed less than 50% stenosis at the carotid bifurcation bilaterally. No occlusive disease. 3. Echocardiogram pending 4. Hemoglobin A1c 6.6 5. LDL 132. Will increase statin to 40 mg nightly 6. Aspirin added for secondary stroke prevention 7. Stroke risk factors discussed 8. PT/OT/ST 9. MRI cervical spine pending 10. Further recommendations to follow based on above evaluation and patient's clinical course Thank you for the consult Attestation Statement I agree with the above. Patient seen and examined. Mild left hemiparesis including left hemifacial weakness, onset May 13, 2022. Isuspect he had a small basal ganglia lacunar infarction on the right. Examination reveals pathologic hyperreflexia in all limbs which raises concern for cervical spinal stenosis with compressive myelopathy. MRI imaging of the brain and cervical spine are pending. Further recommendations to follow. Documented By: MELI Figueroa 1425 Signed By: <Electronically signed by MELI Rizvi> 05/16/22 1559 <Electronically signed by Hector Ansari DO> 05/16/22 4102 [facility] Work Phone: 1(298) [phone] History and physical note Author Ronen Gonzales [facility] May 16, 2022 2:25pm Note Date/Time May 16, 2022 2:25 pm [facility] [address] [place] [address] Hospitalist H&P Signed Patient: Juan Abreu MR#: [id number] : 1960 Acct:[id number] Age/Sex: 62 / M Adm Date: 2 Loc: Room: [address] [place] [address] Type : ADM IN Attending Dr: Ronen Gonzales DO Copies to: [facility] Ronen Gonzales DO~ HPI DATE OF EXAMINATION: 05/16/22 CHIEF COMPLAINT: abnormal speech, left arm and left leg weakness and numbness. HISTORY OF PRESENT ILLNESS: This is a 62-year-old man who began having neurologic symptoms about 48 hours ago, on Monday afternoon. His son is a nurse practitioner, by the way. Patient says that on Monday afternoon there was a lot of driving between different [place] and he noticed that his speech just did not seem to be right. He told his . They went home. When he got out of the vehicle he had some difficulty getting his left leg to do what he wanted to do. He noticed some numbness on his left arm. He thought that he might of been sleeping on it wrong. He proceeded to do some things around the house including checking on some [place] and putting netting over some of the amelie. It seems like he hassymptoms of abnormal speech and left arm and left leg numbness and weakness and tingling did seem to wax and wane on Monday. He said that he was avoiding trying to tell his son about this because his son was camping. He felt even worse at one point with some nausea and near vomiting sensations and so he checked his blood sugar and found it to be 99. He feels like he gets symptoms when his blood sugar goes below 100, so he ate some food and drank some juice. Today he feels like he has improved numbness in his left arm and left leg. Movements of those extremities seem to be normal to him. He does speak out of the right side of his mouth, but he tells me that is normal for him. When he smiles and frowns he does not seem to have as much facial asymmetry as when he is talking. In the ER he had a CT scan of the head that was unrevealing and CTAof the great arteries of the head and neck that showed 50% blockage bilaterally but no large vessel occlusion. Hemoglobin A1c is 6.6. Triglycerides are high at 263, LDL high at 132, HDL on the low side but acceptable at 40 and TSH is normal. Blood pressures have been elevated. His blood pressure emergency room was 196/112. Then it was 160/81. Right now it is 170/99. He says that he did takehis home medications today including his blood pressure medicine and his metformin. Review of Systems Review of Systems Review of systems: 10 systems are reviewed and are negative except as mentioned elsewhere in the documentation. [facility] Vaccinated for COVID-19?: Yes Medical History (Updated 05/16/22 @ 14:24 by Ronen Gonzales DO) BMI 38.0-38.9,adult Diabetes Hyperlipidemia Hypertension Surgical History History of Achilles tendon repair History of cholecystectomy History of hernia repair Family History Mother Heart attack Social History Smoking Status: Former smoker Substance Use Type: None Substance Abuse Comment: Did smoke 1 pack/day for 3 years, quitting in 2004. Meds Medications and Allergies Allergies No Known Allergies Allergy (Verified 05/16/22 07:53) Home Medications atorvastatin 20 mg tablet 20 mg PO DAILY 05/16/22 [History Confirmed 05/16/22] cholecalciferol (vitamin D3) 125 mcg (5,000 unit) tablet (Vitamin D3) 125 mcg PODAILY 05/16/22 [History Confirmed 05/16/22] lisinopril 20 mg-hydrochlorothiazide 12.5 mg tablet 1 tab PO DAILY 05/16/22 [History Confirmed 05/16/22] metformin 1,000 mg tablet 1,000 mg PO BID 05/16/22 [History Confirmed 05/16/22] sitagliptin 100 mg tablet (Januvia) 100 mg PO DAILY 05/16/22 [History Confirmed 05/16/22] Allergy/Medication Comments: Not on the list above, but he seems to picked up from the pharmacy recently: Zyrtec 10 mg daily. Exam Physical Exam Vital Signs: Temp Pulse Resp BP Pulse Ox 97.7 F 75 18 170/99 H 95 05/16/22 12:55 05/16/22 11:25 05/16/22 12:55 05/16/22 12:55 05/16/22 11:25 Narrative: GEN: Awake, alert, oriented x 3. Face: Does seem to move his right lips more, with some flattening of the naso- labial fold on the left. Head: Normal Cephalic, Atraumatic. Eyes: Conjunctiva and sclera clear bilaterally. EOMI. SANAM. Nose: External nose and nares normal bilaterally. Mouth: Lips and tongue normal. Tongue does seem to extend in the midline. Neck: No JVD. No thyromegaly. No lymphadenopathy. Lungs: Clear to auscultation bilaterally, no wheezing, no crackles. Heart: Regular rate and rhythm, no murmurs, rubs, or gallops. Abdomen: Soft, normal bowel sounds, no rigidity, guarding, or acute peritoneal signs. Extremities: No swelling or cords in the calves bilaterally, no edema in the ankles bilaterally. Skin: No systemic rashes or lesions. Psychiatric: Calm. Conversant. Cooperative. Neuro: Strength appears to be intact in all 4 extremities and equal upper extremities and lower extremities equally bilaterally. Results Lab Results Labs: Laboratory Last Values Corrected WBC 7.3 X10E3/uL (4.1-10.5) 05/16/22 07:55 Uncorrected WBC Count 7.3 x10E3/uL (4.5-11.0) 05/16/22 07:55 RBC 6.14 x10E6/uL (3.90-5.60) H 05/16/22 07:55 Hgb 16.5 g/dL (13.0-17.0) 05/16/22 07:55 Hct 49.9 % (38.8-50.0) 05/16/22 07:55 MCV 81.3 fl (83.5-101) L 05/16/22 07:55 MCH 26.9 pg (27.5-35.2) L 05/16/22 07:55 MCHC 33.1 g/dL (32.5-35.6) 05/16/22 07:55 RDW 14.2 % (12.0-14.8) 05/16/22 07:55 Plt Count 340 x10E3/uL (150-450) 05/16/22 07:55 MPV 7.6 fl (6.6-10.1) 05/16/22 07:55 Neut % (Auto) 53.1 % (.) 05/16/22 07:55 Lymph % (Auto) 29.2 % (.) 05/16/22 07:55 [place] % (Auto) 12.0 % (.) 05/16/22 07:55 Eos % (Auto) 5.0 % (.) 05/16/22 07:55 Baso % (Auto) 0.7 % (.) 05/16/22 07:55 Neut # (Auto) 3.9 x10E3/uL (1.8-7.7) 05/16/22 07:55 Lymph # (Auto) 2.1 x10E3/uL (1.00-4.8) 05/16/22 07:55 [place] # (Auto) 0.9 x10E3/uL (0.0-0.8) H 05/16/22 07:55 Eos # (Auto) 0.4 x10E3/uL (0.0-0.45) 05/16/22 07:55 Baso # (Auto) 0.0 x10E3/uL (0.0-0.2) 05/16/22 07:55 Nucleated RBC % (auto) 0.1 % (0-0.5) 05/16/22 07:55 PT 10.8 Seconds (9.0-12.9) 05/16/22 07:55 INR 1.0 05/16/22 07:55 APTT 32.9 Seconds (25.1-36.5) 05/16/22 07:55 PHA Creatinine Clear 91.40 05/16/22 07:55 Sodium 133 mmol/L (136-146) L 05/16/22 07:55 Potassium 4.6 mmol/L (3.5-5.1) 05/16/22 07:55 Chloride 101 mmol/L (95-114) 05/16/22 07:55 Carbon Dioxide 20.9 mmol/L (22.0-30.0) L 05/16/22 07:55 BUN 21 mg/dL (9-23) 05/16/22 07:55 Creatinine 0.98 mg/dL (0.64-1.27) 05/16/22 07:55 Est GFR ( Amer) > 60 mL/Min 05/16/22 07:55 Est GFR (Non-Af Amer) > 60 mL/Min 05/16/22 07:55 Glucose 145 mg/dL (70-100) H 05/16/22 07:55 POC Glucose 142 mg/dl 05/16/22 08:38 Estimat Average Glucose 143 mg/dL 05/16/22 07:55 Hemoglobin A1c 6.6 % (4.3-5.6) H 05/16/22 07:55 Calcium 9.8 mg/dL (8.2-10.2) 05/16/22 07:55 Total Bilirubin 0.9 mg/dL (0.3-1.2) 05/16/22 07:55 AST 22 U/L (10-42) 05/16/22 07:55 ALT 21 U/L (10-60) 05/16/22 07:55 Alkaline Phosphatase 49 U/L (32-92) 05/16/22 07:55 Total Creatine Kinase 73 U/L (22-269) 05/16/22 07:55 CK-MB (CK-2) 2.1 ng/mL (0.6-6.3) 05/16/22 07:55 CK-MB (CK-2) Rel Index 2.8 % (0.00-2.50) H 05/16/22 07:55 Troponin I High Sens 7 pg/mL (0-20) 05/16/22 07:55 Total Protein 6.9 gm/dL (6.1-7.9) 05/16/22 07:55 Albumin 4.1 gm/dL (3.2-5.5) 05/16/22 07:55 Globulin 2.8 gm/dL 05/16/22 07:55 Albumin/Globulin Ratio 1.5 05/16/22 07:55 Triglycerides 263 mg/dL (35-149) H 05/16/22 07:55 Cholesterol 225 mg/dL (140-200) H 05/16/22 07:55 LDL Cholesterol, Calc 132 mg/dL (0-100) H 05/16/22 07:55 VLDL Cholesterol 52 mg/dL 05/16/22 07:55 HDL Cholesterol 40 mg/dL (29-71) 05/16/22 07:55 Cholesterol/HDL Ratio 5.6 (<5.0) 05/16/22 07:55 TSH 3rd Generation 2.28 uIU/mL (0.45-5.33) 05/16/22 07:55 Urine Color Yellow (Yellow) 05/16/22 10:18 Urine Appearance Slightly cloudy (Clear) A 05/16/22 10:18 Urine pH 5.5 (5.0-9.0) 05/16/22 10:18 Ur Specific [place] 1.010 (1.001-1.030) 05/16/22 10:18 Urine Protein Negative mg/dL (Negative) 05/16/22 10:18 Urine Glucose (UA) Normal mg/dL (Normal) 05/16/22 10:18 Urine Ketones Negative (Negative) 05/16/22 10:18 Urine Occult Blood Trace (Negative) H 05/16/22 10:18 Urine Nitrite Positive (Negative) H 05/16/22 10:18 Urine Bilirubin Negative (Negative) 05/16/22 10:18 Urine Urobilinogen Normal mg/dL (Normal) 05/16/22 10:18 Ur Leukocyte Esterase 3+ (Negative) H 05/16/22 10:18 Urine RBC 0-1 /HPF (0-4) 05/16/22 10:18 Urine WBC 50-100 /HPF (0-4) H 05/16/22 10:18 Ur Squamous Epith Cells None seen /HPF (0-2) 05/16/22 10:18 Urine Bacteria 2+ (None Seen) H 05/16/22 10:18 Hyaline Casts 0-8 /LPF (0-8) 05/16/22 10:18 COVID-19 PCR Interp N/A 05/16/22 10:56 SARS Antigen (LFIA) Negative (Negative) 05/16/22 10:56 Microbiology Results Micro: Microbiology - Results from entire visit 05/16/22 10:56 Nasal SARS Antigen (LFIA) - Final A&P - Hospitalist Assessment/Plan (1) Stroke: (2) Carotid stenosis: (3) BMI 38.0-38.9,adult: (4) Hypertension: (5) Hyperlipidemia: (6) Diabetes: Plan Plan: MRI brain. Consult to neurology. Echocardiogram was ordered earlier with bubble study. Awaiting results. Start aspirin 81 mg a day. Consult to physical therapy. Consult Occupational Therapy. Consult to speech therapy. Monitor blood pressure. Will allow permissive hypertension at first. But may need intensified blood pressure control in the long run. IV Lopressor and IV hydralazine available if blood pressure goes higher. Hold metformin given CTA. Use sliding scale insulin if his blood sugar should go higher. Okay to continue linagliptin. Documented By: Ronen Gonzales DO [id number] Signed By: <Electronically signed by Ronen Gonzales DO> 05/16/22 1425 [facility] Work Phone: Discharge summary Author Ronen Gonzales [facility] May 17, 2022 5:08pm Note Date/Time May 17, 2022 4:50 pm [facility] [address] [place], [place] [id number] Discharge Summary Signed Patient: Juan Abreu MR#: [id number] : 1960 Acct:[id number] Age/Sex: 62 / M Adm Date: 2 Loc: 3T Room: 7H0876-[address]: Ronen Gonzales DO Copies to: Hector Ansari DO [facility] Ronen Gonzales DO~ Providers Date of Discharge: 05/17/22 Discharging Provider: Ronen Gonzales Primary Care Provider: [facility] Consults: 05/16/22 14:13 Consult to Neurology Routine 05/16/22 14:15 Consult to Occupational Therapy Routine Consult to Physical Therapy Routine Consult to Speech Therapy Routine Discharge Diagnosis (1) Acute ischemic stroke: (2) Right thalamic stroke: (3) Carotid stenosis: (4) Hypertension: (5) Hyperlipidemia: (6) Diabetes: (7) Left-sided weakness: (8) Speech disturbance: (9) BMI 38.0-38.9,adult: (10) EDWIN on CPAP: (11) Cervical stenosis of spine: Final Diagnosis Final Discharge Diagnosis: Acute ischemic stroke involving the right lateral thalamus and periventricular white matter. Resultant left hemiparesis and left facial weakness. Stroke likely to be related to small vessel etiology, with stroke risk factors being hypertension, diabetes, dyslipidemia, and obstructive sleep apnea. Diabetes mellitus type 2, well controlled, with A1c of 6.6 Dyslipidemia with triglycerides high at 212, LDL high at 128, and HDL lower thanideal at 38. Bilateral carotid artery stenosis with plaquing of the carotid bifurcations identified and less than 50% stenosis bilaterally. Advanced C5-C6 and C6-C7 spondylosis with mild to moderate crowding of the spinal cord. Summary Hospital Course Hospital course: This is a 62-year-old man with diabetes, high cholesterol, hypertension, and sleep apnea who has had some waxing and waning neurologic symptoms at home for several days. This included difficulty walking with his left leg, some difficulty with weakness and numbness in his left arm, and some slurred speech that would seem to come and go. He presented emergency room. CT scan of the head was nonacute. CT angiography the great vessels of the head and neck did not show any large vessel occlusion. He does have up to 50% carotid stenosis bilaterally. He was admitted in the hospital and evaluated by neurology. MRI showed an acuteischemic stroke involving the right lateral thalamus and periventricular white matter resulting in left hemiparesis and facial weakness. While he was in the hospital his deficits were gradually improving. His hemoglobin A1c is fairly good at 6.6. His cholesterol panel could stand some improvement with triglycerides high at 212, LDL high at 128, and HDL low at 38. His blood pressures were elevated when he first came to emergency room at 196 112 and 170/99. He was allowed to have permissive hypertension in the setting of an acute stroke. His blood pressures did improve to 128/79 and then 143/83 and 144/79 on the last hospital day. He did admit that he had not been taking his blood pressure medications for a while. He thought that one of his medications was causing him to have upset stomach but he could not tell which one. While he was here in the hospital on his home regimen of medicines, holding metformin due to the contrast exposure, he had no stomach upset and seemed to tolerate medicines well. We also suspect that he had been less than compliant with his sleep apnea machine in the time bradycardia leading up to this acute stroke. Condition Condition at Discharge: Stable Status at Discharge Functional status at discharge: independent ambulation Overall status at discharge: patient is progressing back to baseline Time Spent with Patient Time spent providing/coordinating discharge services (# min): 49 Diagnostic Studies Completed and Pending Studies Pending studies at discharge: 05/16/22 10:18 Urine Culture Stat Preliminary micro results at discharge 05/16/22 10:18 Urine Culture - Preliminary Urine - Clean-Voided Midstream Gram Negative Bacilli Labs on day of discharge: 05/17/22 16:02: POC Glucose 132 05/17/22 11:45: POC Glucose 137 05/17/22 06:46: PHA Creatinine Clear 100.03, Sodium 134 L, Potassium 4.2, Chloride 101, Carbon Dioxide 23.4, BUN 18, Creatinine 0.90, Est GFR ( Amer) > 60, Est GFR (Non-Af Amer) > 60, Glucose 137 H, Calcium 9.7, Triglycerides 212 H, Cholesterol 208 H, LDL Cholesterol, Calc 128 H, VLDL Cholesterol 42, HDL Cholesterol 38, Cholesterol/HDL Ratio 5.5 05/17/22 06:46: Corrected WBC 8.5, Uncorrected WBC Count 8.5, RBC 6.05 H, Hgb 16.3, Hct 49.1, MCV 81.1 L, MCH 26.9 L, MCHC 33.1, RDW 14.1, Plt Count 334, MPV 7.4, Neut % (Auto) 61.0, Lymph % (Auto) 23.5, [place] % (Auto) 10.7, Eos % (Auto) 4.3, Baso % (Auto) 0.5, Neut # (Auto) 5.2, Lymph # (Auto) 2.0, [place] # (Auto) 0.9H, Eos # (Auto) 0.4, Baso # (Auto) 0.0, Nucleated RBC % (auto) 0.1 05/17/22 06:42: POC Glucose 132 05/16/22 20:55: POC Glucose 81, POC Glucose Comment Glu2: cleaned meter 05/16/22 17:30: POC Glucose 178, POC Glucose Comment Glu2: cleaned meter Exam Physical Exam Vital Signs: Temp Pulse Resp BP Pulse Ox 97.8 F 77 18 144/79 H 96 05/17/22 15:36 05/17/22 15:36 05/17/22 15:36 05/17/22 15:36 05/17/22 15:36 Narrative: GEN: Awake, alert, oriented x 3. Lungs: Clear to auscultation bilaterally, no wheezing, no crackles. Heart: Regular rate and rhythm, no murmurs, rubs, or gallops. Abdomen: Soft, normal bowel sounds, no rigidity, guarding, or acute peritoneal signs. Extremities: No swelling or cords in the calves bilaterally, no edema in the ankles bilaterally. Discharge Plan Discharge Plan Patient Disposition: Home Activity: Ambulate as Tolerated Diet: Low-Sodium and Low-Cholesterol Stand Alone Forms: Work/School Release Form Prescriptions: New atorvastatin 40 mg Tablet 40 mg PO QPM 30 Days Qty: 30 RF: 0 aspirin 81 mg Tablet,Delayed Release (Dr/Ec) 81 mg PO DAILY 30 Days Qty: 30 RF: 11 Continued lisinopril-hydrochlorothiazide 20-12.5 mg Tablet 1 tab PO DAILY RF: 0 Januvia 100 mg Tablet 100 mg PO DAILY RF: 0 cholecalciferol (vitamin D3) [Vitamin D3] 125 mcg (5,000 unit) Tablet 125 mcg PO DAILY RF: 0 Held metformin 1,000 mg Tablet 1,000 mg PO BID RF: 0 Hold Instructions: Resume on 05/19/22. Discontinued atorvastatin 20 mg Tablet 20 mg PO DAILY RF: 0 Follow Up: Health Jerrell Delgado [Primary Care Provider] - 05/19/22 8:15 am (Post hospital follow-up appointment. Please call to reschedule if needed. ) Nitza Rizvi, ANP-BC [Nurse Practitioner] - 05/26/22 10:00 am ([address] see the pharmacist first, so please bring all your medication bottles to the appointment. Afterwards you will see the Neurology [facility]. Please call [phone] if you need to change this appointment) Documented By: Ronen Gonzales, [id number] Signed By: <Electronically signed by Ronen Gonzales, DO> 05/17/22 1708 [facility] Work Phone: Evaluation + Plan note Future Appointments Appointment Date:07/13/2022 09:30:00 AM Scheduled Provider:Juventino LEE MD Location:[facility], 1928–1983 Appointment Type[facility] Future Appointments Appointment Date:10/12/2022 02:00:00 PM Scheduled Provider:Juventino LEE MD Location:[facility], [facility]1983 Appointment Type:URO Office Visit [facility] Evaluation + Plan note Future Appointments Appointment Date:04/26/2023 08:45:00 AM Scheduled Provider:Juventino LEE MD Location:[facility], [facility] Appointment Type:URO Office Visit [facility] evaluation note* Diagnosis Onset Date Resolution Status Transient cerebral ischemia acute [facility] Work Phone: evaluation note* Diagnosis Onset Date Resolution Status Acute ischemic stroke acute BMI 38.0-38.9,adult acute Carotid stenosis acute Diabetes acute Hyperlipidemia acute Hypertension acute Left-sided weakness acute Speech disturbance acute Stroke acute Transient cerebral ischemia acute [facility] Work Phone: evaluation note* Diagnosis Onset Date Resolution Status Acute ischemic stroke acute BMI 38.0-38.9,adult acute Carotid stenosis acute Diabetes acute Hyperlipidemia acute Hypertension acute Left-sided weakness acute Speech disturbance acute Stroke acute Transient cerebral ischemia acute VANNESA (acute kidney injury) ac [place]k Stroke-like symptoms acute [facility] Work Phone: Evaluation note* Diagnosis Onset Date Resolution Status Acute ischemic stroke acute BMI 38.0-38.9,adult acute Carotid stenosis acute Diabetes acute Hyperlipidemia acute Hypertension acute Left-sided weakness acute Speech disturbance acute Stroke acute Transient cerebral ischemia acute Acute ischemic stroke acute VANNESA (acute kidney injury) ac [place] Diabetes acute Hyperlipidemia acute Hypertension acute Left-sided weakness acute EDWIN on CPAP acute Right thalamic stroke acute Speech disturbance acute Stroke-like symptoms acute [facility] Work Phone: Evaluation noteNo assessment information available [facility] Work Phone: Evaluation noteNo InformationNortTem[facility] [employer] Other History general Narrative - Reported* Type Description Date Medical History high blood pressure Medical History type II diabetes Medical History cerebral infarction Medical History diverticulitis of colon Medical History CVA left-sided Medical History mixed hyperlipidemia Medical History EDWIN Medical History pure hypertriglyceridemia Surgical History L Achilles tendon surgery Surgical History hernia repair Surgical History right knee arthroscopy W/menisc ectomy Hospitalization History (1) Stroke-like symptoms: (2) VANNESA (acute kidney injury): (3) EDWIN on CPAP: (4) Right thalamic stroke: (5) Acute ischemic stroke: (6) Left-sided weakness: (7) Speech disturbance: (8) Hypertension: (9) Hyperlipidemia: (10) Diabetes: 05/19/22 [facility] [employer] Other Hospital course Narrative No data available for this section [facility] Discharge instructions No data available for this section [facility] Discharge instructions Additional Instructions DISCHARGE INSTRUCTIONS FOR CYSTOSCOPY WHAT YOU SHOULD KNOW AFTER YOUR CYSTO The following instructions must be followed very closely: -If you need pain pills, start before pain becomes intense. Antibiotics and pain pills are frequently less upsetting to your stomach if you take them with food such as crackers or bread. -If you are having excessive or persistent pain, swelling, bleeding, nausea, vomiting, or any other problems, you should first call your surgeon for advice. If you are unable to contact your surgeon, seek help from a hospital emergency room. If you were given drugs to make you drowsy and/or pain medication, follow these instructions: -You should spend the remainder of the day and evening resting. -You should not attempt to walk, including going to the bathroom, without assistance. You maybe lightheaded from the medications that you received. -Eat light today to avoid nausea. You should be able to return to your normal diet 24-36 hours after surgery. -For the next 24 hours you should not consume alcohol, attempt to drive, use any power tools, sign important documents or make important personal or business decisions. After that, do so if you feel perfectly normal and alert. -Follow carefully any verbal or written instructions your surgeon may have given you. ADDITIONAL INSTRUCTIONS -Drink a lot of water. -Take medication as prescribed. -Get an abdominal X-Ray prior to the appointment and bring it with you. Call the office to make arrangements for the X-Ray. FOLLOW UP -Please call the office to arrange a follow up appointment. [facility] Work Phone: Progress note No data available for this section [facility] Summary Purpose Family History No Family History Records Found Relationship Condition Age at Onset Recorded Date/T taylor Not Specified Myocardial infarction Unknown Advance Directives No Advanced Directives Records Found Advance Directive Response Recorded Date/ Time Advance Directives No May 16 9:02am Advance Directive Response Recorded Date/ Time Advance Directives No May 16 8:02am Chief Complaint and Reason for Visit Chief Complaint left leg arm numbnes s Reason for Visit Transient cerebral i schemia Chief Complaint left leg arm numbnes s Reason for Visit Acute ischemic strok e BMI 38.0-38.9,adult Carotid stenosis Diabetes Hyperlipidemia Hypertension Left-sided weakness Speech disturbance Stroke Transient cerebral ischemia Chief Complaint left leg arm numbnes s l sided weakness Reason for Visit Acute ischemic strok e BMI 38.0-38.9,adult Carotid stenosis Diabetes Hyperlipidemia Hypertension Left-sided weakness Speech disturbance Stroke Transient cerebral ischemia VANNESA (acute kidney injury) Stroke-like symptoms Chief Complaint left leg arm numbnes s l sided weakness Reason for Visit Acute ischemic strok e BMI 38.0-38.9,adult Carotid stenosis Diabetes Hyperlipidemia Hypertension Left-sided weakness Speech disturbance Stroke Transient cerebral ischemia Acute ischemic stroke VANNESA (acute kidney injury) Diabetes Hyperlipidemia Hypertension Left-sided weakness EDWIN on CPAP Right thalamic stroke Speech disturbance Stroke-like symptoms Chief Complaint Uretheral Stricture and BPH with Obstruction Chief Complaint 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 Chief Complaint Fever, flu like sx Additional Source Comments (unrecognized sect ion and content) No Status Records FoundNo Status Records FoundNo Status Records Found INFORMATION SOURCE (unrecogn ized section and content) DATE CREATED AUTHOR 09/25/2020 [facility] DATE CREATED AUTHOR AUTHOR'S ORGANIZ ATION 04/27/2023 [facility] DATE CREATED AUTHOR AUTHOR'S ORGANIZ ATION 07/15/2023 [facility] Care Teams (unrecognized sec tion and content) Team Status: Active Member Role Status Dates Juventino Thompson DO Emergency Provider Active Hector Brown DO RES Active [facility] Primary Care Provider Active Ronen Gonzales , Admit Provider, Attending Pr ovider Active Team Status: Active Member Role Status D[facility] Active Team Status: Inactive Member Role Status Dates Juventino Thompson DO Emergency Provider Active Hector Brown DO RES Active [facility] Primary Care Provider Active Ronen Gonzales , Admit Provider, Attending Pr ovider Active Hector Ansari , DO Other Provider Active Team Status: Active Member Role Status Dates [facility] Primary Care Provider Active Jesse Sampson DO Emergency Provider Active Nydia Marcelino MD Admit Provider, Attending Provide r Active Hector Ansari , DO Other Provider Active Team Status: Inactive Member Role Status Dates [facility] Primary Care Provider Active Jesse Sampson DO Emergency Provider Active Nydia Marcelino MD Admit Provider, Attending Provide r Active Hector Ansari , Other Provider Active Team Status: Inactive Member Role Status Dates [facility] Primary Care Provider Active Juventino Lee MD Attending Provider Active Team Status: Inactive Member Role Status Dates [facility] Primary Care Provider Active Juventino Thompson DO Emergency Provider Active Goals (unrecognized section and content) Goals may be documented in a n alternate section REASON FOR VISIT (unrecogniz ed section and content) Referred by Dr Mccallum for right knee osteoarthritis; discuss gel injectionsNo Information FOR RECORDS PERTAINING TO PATIENTS WHO ARE OR HAVE BEEN ENROLLED IN A CHEMICAL DEPENDENCY/SUBSTANCEABUSE PROGRAM, SOME INFORMATION MAY BE OMITTED. This clinical summary was aggregated from multiple sources. Caution should be exercised in using it in the provision of clinical care. This summary normalizes information from multiple sources, and as a consequence, information in this document may materially change the coding, format and clinical context of patient data. In addition, data may be omitted in some cases. CLINICAL DECISIONS SHOULD BE BASED ON THE PRIMARY CLINICAL RECORDS. [facility] [employer] [facility]. provides no warranty or guarantee of the accuracy or completeness of information in this document.
== END 2024-03-08 14:06 | disposition home or self-care (01) ==
PROVIDERS: Visit Provider Nurse Practitioner Family
DX: S90.111A Contusion of right great toe without damage to nail, initial encounter (principal)
CPT/HCPCS: 73660